=== PATIENT | male | born 1960 | race Caucasian/White ===

== ENCOUNTER 2016-08-18 09:59 | Emergency (ER) | payer MEDICARE, OTHER ==
[2016-08-18 11:32] VITALS: BP 124/84
--- NOTE | 2016-08-18 11:35 | UC ---
Respiratory Complaint HPI - HPI Summary HPI Summary: He has had cough for about 24 hours and diarrhea for about 3 days. no pain currently, no fever or blood in stool. no vomiting. Today acu check following breakfast with syrup was 300+. it has been in the 130 range. He has been compliant with lantus. metformin was stopped a few weeks ago. - History of Current Complaint Chief Complaint: UCRespiratory Stated Complaint: COUGH,THROAT COMPLAINT Time Seen by Provider: 08/18/16 11:16 Hx Obtained From: Patient, Family/Pelt Grader Onset/Duration: Gradual Onset Timing: Constant Severity Initially: Mild Severity Currently: Mild Character: Cough: Nonproductive Associated Signs And Symptoms: Positive: URI. Negative: Fever, Chills, Pleuritic Chest Pain, Wheezing, Hemoptysis, Dizziness, Calf Pain, Calf Swelling , Edema, Nasal Congestion, Hoarseness, Sinus Discomfort - Risk Factors Pulmonary Embolism Risk Factors: Negative Cardiac Risk Factors: Hypertension, Diabetes, CAD - Allergies/Home Medications Allergies/Adverse Reactions: Allergies Allergy/AdvReac Type Severity Reaction Status Date / Time No Known Allergies Allergy Verified 08/18/16 11:02 PMH/Surg Hx/FS Hx/Imm Hx Endocrine History Of: Reports: Diabetes Cardiovascular History Of: Reports: Hypertension Denies: Cardiac Disorders Respiratory History Of: Reports: Asthma - Surgical History Surgical History: Yes Surgery Procedure, Year, and Place: 2010 shoulder surgery-right - Family History Known Family History: Positive: Hypertension, Diabetes - Social History Alcohol Use: Occasionally Substance Use Type: None Smoking Status (MU): Former Smoker Type: Cigarettes Length of Time of Smoking/Using Tobacco: off/on since age 15 Have You Smoked in the Last Year: Yes Review of Systems All Other Systems Reviewed And Are Negative: Yes Physical Exam Triage Information Reviewed: Yes Appearance: Well-Appearing, No Pain Distress, Well-Nourished Vital Signs: Initial Vital Signs Temp 97.3 F 08/18/16 10:54 Pulse 81 08/18/16 10:54 Resp 18 08/18/16 10:54 BP 124/84 08/18/16 10:54 Eye Exam: Normal Eyes: Positive: Conjunctiva Clear. Negative: Conjunctiva Inflamed ENT: Positive: Normal ENT inspection, Hearing grossly normal, Pharynx normal, TMs normal. Negative: Pharyngeal erythema, Nasal congestion, Nasal drainage, TM bulging, TM dull, TM red, Tonsillar swelling, Tonsillar exudate, Trismus, Muffled/hoarse voice Neck exam: Normal Neck: Positive: Supple, Nontender, No Lymphadenopathy. Negative: Nuchal Rigidity, Tenderness @, Enlarged Nodes @ Respiratory Exam: Normal Respiratory: Positive: Chest non-tender, Lungs clear, Normal breath sounds, No respiratory distress, No accessory muscle use. Negative: Respiratory distress, Decreased breath sounds, Accessory muscle use, Crackles, Rhonchi, Stridor, Wheezing Cardiovascular: Positive: RRR, No Murmur, Pulses Normal, Brisk Capillary Refill Abdomen Description: Positive: Nontender, No Organomegaly, Soft Musculoskeletal Exam: Normal Musculoskeletal: Positive: Strength Intact, ROM Intact, No Edema Neurological: Positive: Alert, Muscle Tone Normal. Negative: Fatigued, Lethargic, Unresponsive Psychological Exam: Normal Skin Exam: Normal Respiratory Course/Dx - Course Course Of Treatment: viral illness. no signs of worsisome findings. hydration and f/u with pcp if BG remains high. - Differential Dx/Diagnosis Differential Diagnosis/HQI/PQRI: Airway Obstruction, Foreign Body, Aspiration, Asthma, Bronchitis, CHF, Pulmonary Edema, Exacerbation Of COPD, Influenza, Laryngitis, Lower Resp Infection, MRSA, VRE, Pneumothorax, Pulmonary Embolism Provider Diagnoses: diarrhea. cough and congestion. hyperglycemia. Discharge - Discharge Plan Condition: Fair Disposition: HOME Patient Education Materials: Chronic Diarrhea (ED), Diabetic Hyperglycemia (ED) Referrals: Sugey Rosales MD [Primary Care Provider] - If Needed
== END 2016-08-18 11:45 | disposition home or self-care (01) ==
LOC: UCCORT 09:59
DX: R19.7 Diarrhea, unspecified (principal); R05 Cough; E11.65 Type 2 diabetes mellitus with hyperglycemia; Z87.891 Personal history of nicotine dependence
CPT/HCPCS: 99212; G0463

== ENCOUNTER 2016-08-20 17:40 | Emergency (ER) | payer MEDICARE, OTHER ==
[2016-08-20] MEDS ORDERED: Albuterol 2.5 MG/3 ML NEB.SOL* (0.083%) INH ONE (19:31)
[2016-08-20] MEDS ORDERED: Acetaminophen TAB* 325 MG PO ONE (19:31)
[2016-08-20 19:32] VITALS: BP 126/79
--- NOTE | 2016-08-20 19:34 | UC ---
UC General HPI - HPI Summary HPI Summary: patient has had Cough, fever, shortness of breath, body aches. - History of Current Complaint Chief Complaint: UCGeneralIllness Stated Complaint: FLU SYMPTOMS Time Seen by Provider: 08/20/16 19:00 Hx Obtained From: Patient Onset/Duration: Sudden Onset, Lasting Days Timing: Constant Onset Severity: Moderate Current Severity: Severe Pain Intensity: 9 Associated Signs & Symptoms: Positive: Cough, Fever, Headache, SOB, Wheezing - Allergy/Home Medications Allergies/Adverse Reactions: Allergies Allergy/AdvReac Type Severity Reaction Status Date / Time No Known Allergies Allergy Verified 08/20/16 19:09 Home Medications: Home Medications Amlodipine Besylate [Norvasc-] 5 mg PO DAILY 08/20/16 [History Confirmed ] Bupropion XL (NF) [Wellbutrin XL (NF)] 300 mg PO DAILY 08/20/16 [History Confirmed 08/20/16] PMH/Surg Hx/FS Hx/Imm Hx Previously Healthy: Yes Endocrine History Of: Reports: Diabetes Cardiovascular History Of: Reports: Hypertension Denies: Cardiac Disorders Respiratory History Of: Reports: Asthma - Surgical History Surgical History: Yes Surgery Procedure, Year, and Place: 2011 shoulder surgery-right. LEFT SHOULDER SX--2016. LEFT TOE PARTIAL NAIL AVULSION. RIGHT TOE PARTIAL NAIL AVULSION - Family History Known Family History: Positive: Hypertension, Diabetes - Social History Alcohol Use: Occasionally Substance Use Type: None Smoking Status (MU): Former Smoker Type: Cigarettes Length of Time of Smoking/Using Tobacco: off/on since age 15 Have You Smoked in the Last Year: Yes When Did the Patient Quit Smoking/Using Tobacco: 09/2014 Review of Systems Constitutional: Fever, Chills, Fatigue Skin: Negative Eyes: Negative ENT: Sore Throat, Ear Ache, Nasal Discharge Respiratory: Shortness Of Breath, Cough Cardiovascular: Negative Gastrointestinal: Negative Genitourinary: Negative Motor: Negative Neurovascular: Negative Musculoskeletal: Arthralgia, Myalgia Neurological: Headache Psychological: Negative All Other Systems Reviewed And Are Negative: Yes Physical Exam Triage Information Reviewed: Yes Appearance: Well-Nourished, Ill-Appearing, Pain Distress Vital Signs: Initial Vital Signs Temp 100.1 F 08/20/16 18:58 Pulse 103 08/20/16 18:58 Resp 20 08/20/16 18:58 BP 126/79 08/20/16 18:58 Pulse Ox 95 08/20/16 18:58 Vital Signs Reviewed: Yes Eye Exam: Normal Eyes: Positive: Conjunctiva Clear ENT: Positive: Pharyngeal erythema, Nasal congestion, Nasal drainage, TMs normal , Tonsillar swelling Dental Exam: Normal Neck exam: Normal Neck: Positive: Supple, Nontender, No Lymphadenopathy Respiratory Exam: Normal Respiratory: Positive: Decreased breath sounds - mild, Rhonchi, Wheezing, Inspiration Cardiovascular Exam: Normal Cardiovascular: Positive: No Murmur, Pulses Normal, Tachycardia Abdominal Exam: Normal Abdomen Description: Positive: Nontender, No Organomegaly, Soft Bowel Sounds: Positive: Present Musculoskeletal Exam: Normal Musculoskeletal: Positive: Strength Intact, ROM Intact, No Edema Neurological Exam: Normal Neurological: Positive: Alert, Muscle Tone Normal Psychological Exam: Normal Skin Exam: Normal Course/Dx - Course Course Of Treatment: hx obtained, exam performed, medication asdministered for [place] and SOB. positive flu A, chest xray negative - Differential Dx - Multi-Symptom Provider Diagnoses: influenza A. wheezing. Fever Discharge - Discharge Plan Condition: Stable Disposition: HOME Prescriptions: Albuterol 2.5MG/3ML (0.083%)* [Ventolin 2.5 MG/3 ML NEB.BERTRAND*] 2.5 mg INH Q4H PRN #1 box PRN Reason: Sob/Wheezing predniSONE TAB* [Deltasone TAB*] 40 mg PO DAILY #10 tab Patient Education Materials: Influenza (ED) Referrals: Sugey Rosales MD [Primary Care Provider] - Additional Instructions: Get plenty of rest, Increase your fluid intake. Continue with the Robitussin for cough, use the albuterol twice a day, upt ot every 4 hours for shortness of breath. Start the prednisone tomorrow morning to help with the wheezing. Continue with tylenol every 4-6 hours 650 mg. If you develop any worsening symtpoms follow up.
--- NOTE | 2016-08-20 20:27 | RAD ---
INDICATION: Shortness of breath and wheezing. COMPARISON: There are no prior studies available for comparison. TECHNIQUE: Dual-energy PA and lateral views of the chest were obtained. FINDINGS: The heart is within normal limits in size. Mediastinal and hilar contours appear within normal limits. The lungs are clear. No pleural effusion is present. There is prominent widening of both acromioclavicular joints possibly secondary to resection of the distal clavicles. IMPRESSION: NO EVIDENCE FOR ACTIVE CARDIOPULMONARY DISEASE.
== END 2016-08-20 20:52 | disposition home or self-care (01) ==
LOC: UCCORT 17:40
DX: J10.1 Influenza due to other identified influenza virus with other respiratory manifestations (principal); R06.2 Wheezing; R50.9 Fever, unspecified; I10 Essential (primary) hypertension; Z87.891 Personal history of nicotine dependence
CPT/HCPCS: 71020; 87502; 99212; A9270-GY; G0463

== ENCOUNTER 2017-09-03 17:06 | Emergency (ER) | payer MEDICARE, OTHER ==
--- NOTE | 2017-09-03 17:59 | UC ---
General HPI - HPI Summary HPI Summary: Pt is c/o a crackling-popping noise in his L ear that now feels like ear pressure. Now he has pain to front of ear that radiates toward his neck and sometimes gives him a headache. He wears a hearing aid in R ear. Denies fever, uri, sore throat and states I have no teeth. He admits to his jaw popping which is not new. Pt called Dr kat but not able to be seen until 09/13/17 and states i can't wait that long. he is on nasal spray and allergy medication. no relief with tylenol. - History of Current Complaint Stated Complaint: RIGHT EAR/JAW PAIN,[place] Time Seen by Provider: 09/03/17 17:53 Hx Obtained From: Patient Onset/Duration: Gradual Onset Timing: Constant Aggravating: nothing Alleviating: nothing Associated Signs & Symptoms: Positive: Headache. Negative: Fever, Weakness - Allergy/Home Medications Allergies/Adverse Reactions: Allergies Allergy/AdvReac Type Severity Reaction Status Date / Time No Known Allergies Allergy Verified 09/03/17 18:15 PMH/Surg Hx/FS Hx/Imm Hx - Additional Past Medical History Additional PMH: arthritis Endocrine History: Diabetes, Hyperthyroidism, Dyslipidemia Respiratory History: Asthma - Surgical History Surgical History: Yes Surgery Procedure, Year, and Place: 2009 shoulder surgery-right - Family History Known Family History: Positive: Hypertension, Diabetes - Social History Alcohol Use: Occasionally Substance Use Type: None Smoking Status (MU): Heavy Every Day Tobacco Smoker Type: Cigarettes Length of Time of Smoking/Using Tobacco: off/on since age 15 Have You Smoked in the Last Year: Yes When Did the Patient Quit Smoking/Using Tobacco: 09/2014 Review of Systems Constitutional: Negative Skin: Negative Eyes: Negative ENT: Ear Ache Respiratory: Negative Cardiovascular: Negative Gastrointestinal: Negative Genitourinary: Negative Motor: Negative Neurovascular: Negative Musculoskeletal: Negative Neurological: Headache Psychological: Negative Is Patient Immunocompromised?: No All Other Systems Reviewed And Are Negative: Yes Physical Exam Triage Information Reviewed: Yes Appearance: Well-Appearing Eyes: Positive: Conjunctiva Clear ENT: Positive: Pharynx normal, TMs normal, Other - Canals are clear. No auricular adenopathy. No mastoid tenderness. TMJ's pop with active ROM. No carotid bruits.. Negative: Nasal congestion, Nasal drainage Neck: Positive: Supple, Nontender, No Lymphadenopathy. Negative: Nuchal Rigidity Respiratory: Positive: Lungs clear, Normal breath sounds Cardiovascular: Positive: RRR, No Murmur, Pulses Normal, Other: - Strong equal radial pulses. Abdomen Description: Positive: Nontender, No Organomegaly, Soft Bowel Sounds: Positive: Present Musculoskeletal: Positive: ROM Intact Neurological: Positive: Alert, Other: - CN 2-12 grossly intact. Normal gait. Temporal areas without cords or tenderness. Psychological: Positive: Age Appropriate Behavior Skin Exam: Normal Skin: Negative: rashes Course/Dx - Course Course Of Treatment: non toxic. exam supports TMJ syndrom. rest of exam is unremarkable. nothing to suggest temporal arteritis, intracranial bleed or dissection. possible eustachian tube dysfunction but the otalgia seems out of proportion thus will refer to ent for f/u with Dr Frias tomorrow. pt advised if he feels any worse that he should go directly to the er to which he agrees. - Differential Dx - Multi-Symptom Provider Diagnoses: Otalgia-left. TMJ syndrom and possible eustachian tube dysfunction Discharge - Discharge Plan Condition: Stable Disposition: HOME Prescriptions: Naproxen TAB* [Naprosyn 375 mg TAB*] 375 mg PO BID 3 Days #6 tab Referrals: Sugey Rosales MD [Primary Care Provider] - If Needed Josef Frias MD [Medical Doctor] - 1 Day
[2017-09-03 18:18] VITALS: BP 120/85
== END 2017-09-03 18:55 | disposition home or self-care (01) ==
LOC: UCCORT 17:06
DX: H92.01 Otalgia, right ear (principal); M26.609 Unspecified temporomandibular joint disorder, unspecified side; E11.9 Type 2 diabetes mellitus without complications; Z87.891 Personal history of nicotine dependence
CPT/HCPCS: 99212; G0463

== ENCOUNTER 2018-09-30 16:43 | Emergency (ER) | payer MEDICARE, MEDICAID ==
--- NOTE | 2018-09-30 17:01 | UC ---
Respiratory Complaint HPI - HPI Summary HPI Summary: Pt had a URI about 3 weeks ago and he got better but still has some post-nasal drainage and head congestion. - History of Current Complaint Stated Complaint: COUGH,CONGESTION Time Seen by Provider: 09/30/18 17:00 Hx Obtained From: Patient Onset/Duration: Gradual Onset Timing: Constant Severity Initially: Moderate Severity Currently: Mild Character: Cough: Nonproductive Aggravating Factors: Nothing Alleviating Factors: Nothing Associated Signs And Symptoms: Positive: URI, Nasal Congestion - Risk Factors Pulmonary Embolism Risk Factors: Negative Cardiac Risk Factors: Negative Pseudomonas Risk Factors: Negative Tuberculosis Risk Factors: Negative - Allergies/Home Medications Allergies/Adverse Reactions: Allergies Allergy/AdvReac Type Severity Reaction Status Date / Time enviromental Allergy Unknown Unknown Uncoded 09/30/18 17:02 Reaction Details PMH/Surg Hx/FS Hx/Imm Hx Previously Healthy: Yes Endocrine History: Diabetes - Surgical History Surgical History: Yes Surgery Procedure, Year, and Place: 2009 shoulder surgery-right - Family History Known Family History: Positive: Hypertension, Diabetes - Social History Alcohol Use: Occasionally Substance Use Type: None Smoking Status (MU): Heavy Every Day Tobacco Smoker Type: Cigarettes Length of Time of Smoking/Using Tobacco: off/on since age 15 Have You Smoked in the Last Year: Yes When Did the Patient Quit Smoking/Using Tobacco: 09/2014 Review of Systems All Other Systems Reviewed And Are Negative: Yes Constitutional: Positive: Negative ENT: Positive: Nasal Discharge Is Patient Immunocompromised?: No Physical Exam Triage Information Reviewed: Yes Appearance: Well-Appearing, No Pain Distress, Well-Nourished Vital Signs Reviewed: Yes Eye Exam: Normal ENT Exam: Normal ENT: Positive: Pharynx normal, Nasal congestion, TMs normal, Uvula midline. Negative: Tonsillar swelling, Tonsillar exudate, Trismus, Muffled voice, Hoarse voice Neck: Positive: Supple, Nontender, No Lymphadenopathy Respiratory: Positive: Lungs clear, Normal breath sounds, No respiratory distress, No accessory muscle use Cardiovascular: Positive: RRR, No Murmur, Pulses Normal, Brisk Capillary Refill Musculoskeletal Exam: Normal Neurological Exam: Normal Psychological Exam: Normal Skin Exam: Normal Respiratory Course/Dx - Course Course Of Treatment: Comfortable here, pt stated he was better but he just wanted to be checked - Differential Dx/Diagnosis Provider Diagnosis: URI (upper respiratory infection) Discharge - Sign-Out/Discharge Documenting (check all that apply): Patient Departure All imaging exams completed and their final reports reviewed: No Studies - Discharge Plan Condition: Good Disposition: HOME Patient Education Materials: Upper Respiratory Infection (DC) Referrals: Tam Rowland MD [Primary Care Provider] - Additional Instructions: Follow up with your doctor if worsening symptoms over the next week. - Billing Disposition and Condition Condition: GOOD Disposition: Home
--- OUTSIDE RECORDS SUMMARY | 2018-09-30 17:01 | XMS REPORT | Continuity of Care Document ---
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 Active Onset: 07/17/2014 Benign essential hypertension Soren Crawford FNP Active Onset: 07/17/2014 Type 2 diabetes mellitus Soren Crawford FNP Active Onset: 01/03/2015 Sleep apnea Susan Sutton M.D. Active Onset: 06/08/2015 Obesity Tye Del Castillo MD Active Onset: 06/08/2015 Chronic obstructive lung disease Tye Del Castillo MD Active Onset: 06/08/2015 Allergic rhinitis Tye Del Castillo MD Active Onset: 06/08/2015 Depressive disorder Tye Del Castillo MD Active Onset: 06/08/2015 Gastroesophageal reflux disease Tye Del Castillo MD Active Onset: 07/01/2015 Irritable bowel syndrome Tye Del Castillo MD Active Note: colo to TI Bx 2015 Onset: 12/31/2015 Shoulder joint pain Navneet Latham M.D. Active Onset: 01/17/2016 Full thickness rotator cuff tear Navneet Latham M.D. Active Onset: 01/28/2016 Hyperlipidemia Sugey Rosales M.D. Active Onset: 09/04/2016 Knee pain Navneet Latham M.D. Active Onset: 09/13/2016 Radial styloid tenosynovitis Navneet Latham M.D. Active Onset: 12/28/2016 Joint ankylosis of the shoulder Riya Manriquez PA Active region Onset: 01/01/2017 Mild intermittent asthma Kimberly Willson MD Active Onset: 11/23/2017 Psychogenic impotence Patrick Sosa M.D. Active Onset: 06/08/2015 Eosinophilic esophagitis Tye Del Castillo MD Resolved Resolved: 01/28/2016 Onset: 01/20/2016 Acute pharyngitis Kimberly Willson MD Resolved Resolved: 01/28/2016 Family History Date Family Member(s) Observation Comments General Cancer General Heart Disease General Stroke General Diabetes Father Diabetes Father Hypertension Father Gout Mother Diabetes Mother due to [place] () Mother Hypertension Mother CAD 39 Mother CHF Children 2 First Son learning disability Second Son neuromuscular condition Siblings 3 First Sister due to Heart Attack () Second Sister Heart Disease Second Sister Diabetes Mellitus Type 2 Second Sister Stroke Social History Type Date Description Comments Sex Unknown Marital Status Lives With Lives With Daughter step daughter Diet Patient follows no dietary restrictions Occupation Disabled Work Status Unemployed Tobacco Use Start: Unknown End: Quit Greater than 1 year Unknown ETOH Use Rarely consumes alcohol 3 dr/mo Tobacco Use Start: Unknown End: Patient is a former 1ppd x 32 yrs, quit Unknown smoker at age 54 Recreational Drug Use Denies Drug Use Tobacco Use Start: Unknown Quit 10/05/14 Smoking Status Reviewed: 09/19/18 Quit 10/05/14 Allergies, Adverse Reactions, Alerts Date Description Reaction Status Severity Comments 10/05/2014 NKDA Active 12/07/2015 Environmental Active Medications Medication Date Status Form Strength Qnty SIG Indications Ordering Provider Saline Nasal 09/20/19 Active Solution 0.65% 1unit 2 sprays J06.9 Janett, [place] 19 s intranasal MD Tam every 2 hours congestion or nasal dryness SM Aspirin 08/19/[address] 81mg 90tab take one Janett Adult Low 19 s tablet by MD Tam Strength mouth every day Allergy Shot 02/29/20 Active 1 Sheila, 18 injection Mahmoud, every 2 M.D. weeks SM Alcohol 11/07/19 Active Pads 70% 100un Use For Connie, Prep 18 its Testing Sugey, Blood M.D. Sugar And Give Insulin Blood Glucose 08/03/19 Active Kit W/Device 1unit check E11.9 Connie, Monitoring 18 s blood Sugey, System sugars M.D. fasting in in the morning dx. e11.9 Blood Glucose 08/03/19 Active Strips 100un test E11.9 Carson, Test 18 its sugars in [place], in the PNP-BC, morning [facility], e11.9 Ibclc Ranexa 05/30/20 Active Tablets ER 500mg 180ta Take One R07.9 [place] 17 12HR bs Tablet By Stefano M.D., Twice A FACC Day Ventolin HFA 05/03/20 Active Aerosol 108(90Bas 18uni inhale one Janett 17 e) ts to two MD Tam mcg/Act puffs by mouth every 4 to 6 hours as needed Basaglar 05/03/20 Active Solution 100Unit/M 15uni Inject 48 E11.9 Janett Kwikpen 17 Pen-Inject L ts Units MD Tam Daily, Titrate as Directed Unifine 09/26/19 Active Misc 31G X 5 100un For Janett Pentips 17 mm its Insulin MD Tam Amlodipine 03/22/20 Active Tablets 5mg 90tab take one Ricardo Besylate 16 s tablet by MD Curtis mouth every day Pen Himrod 11/29/19 Active Misc 31G X 5 100un use to E11.9 Connie, 3/16" 16 mm its inject Sugey, insulin Emma Lancets Super 11/29/19 Active Misc Thin 28G 100un use as Sandrita Sutton 28G 16 its needed to Susan martin M.D. blood sugar Alcohol Pads 11/29/19 Active Pads 70% 100un use to Connie, 16 its test bs Sugey, and larry Carter insulin Atorvastatin 04/07/20 Active Tablets 40mg 90tab take one E78.5 Demetris, Calcium 15 s tablet by MD Kimberly mouth every day Acetaminophen 09/11/19 Active Tablets 500mg 100ta 2 tabs Sutton, Extra Strength 15 bs every 4 Susan [place] estrada M.D. needed for pain or fever MDD 8 Mens Active Tablets 1 po daily Unknown Multivitamin 00 Plus Fluoxetine HCL Active Capsules 20mg 90cap take one Janett, 00 s capsule by MD Tam mouth every day Nasal Relief Active Solution 0.05% Nasal wash Unknown 00 once daily Fluticasone Active Suspension 50mcg/Act 16gm spray 2 Janett, Propionate 00 sprays in MD Tam each nostril daily Lisinopril Active Tablets 20mg 90tab take one Demetris, 00 s tablet by MD Kimberly mouth every day Bupropion HCL Active Tablets ER 300mg 90tab Take One Connie, ER (XL) 00 24HR s Tablet By Pamela Mayes.Tejas Every Day Loratadine Active Tablets 10mg 30tab take one Janett, 00 s tablet by MD Tam mouth every day Flovent Diskus Active Aerosol 100mcg/Bl 60uni Inhale One Carson, 00 ist ts puff By Pamela Hart PNP-BC, Twice A [facility], Day Ibclc Coricidin HBP Active Tablets Unknown Cold & Flu 00 Guaifenesin-DM 07/18/19 Hx Syrup 100-10mg/ ml 1 tbsp by Jevon Rowland, 19 - 5ML mouth MD Tam 07/30/19 twice a 19 day congestion Saline Nasal 07/18/19 Hx Solution 0.65% 1unit 2 sprays Jevon Rowland [place] 19 - s intranasal MD Tam 09/20/19 every 2 19 hours congestion or nasal dryness Chloraseptic 07/18/19 Hx Lozenges 15-10mg 60uni 1 lozenge Luis Alfredo Arreaga Sore 19 - ts by mouth MD Tam Throat 07/30/19 every 2 19 hours as needed Sildenafil 11/24/19 Hx Tablets 20mg 14tab take up to F52.21 Sheila, Citrate 18 - s 5 pills as Mahmoud, 07/30/19 need once M.D. 19 a day 2 hours before intercours e Aspirin Ec Low 05/29/[address] 81mg 90tab take one Dale Willson 17 - s tablet by MD Kimberly 08/19/19 mouth 19 every day Azithromycin 03/20/20 Hx Tablets 250mg 6tabs 1 tab take J20.9 Connie, 17 - 2 tabs x Sugey, 05/02/20 daily days M.D. 17 then 1 for 4 days Lantus 02/01/20 Hx Solution 100Unit/M 59u sq at E11.9 Demetris 17 - L bedtime MD Kimberly 05/03/20 17 Aspir-Low 01/10/[address] 81mg 90tab Take One Connie 17 - s Tablet By Sugey 05/29/20 Mouth M.D. 17 Every Day Oxycodone HCL 12/29/19 Hx Tablets 5mg 40tab 1-2 every Z01.818 Yeison, 17 - s 4-6 hour Navneet, 08/03/19 as needed M.D. 18 pain Lantus 11/20/19 Hx Solution 100Unit/M 30ml inject 62 Pat Willson 17 - Pen-Inject L units once MD Kimberly 02/01/20 daily,chec 17 k blood sugar every morning and if over 120,increa se insulin by 1 unit per day Basaglar 09/27/19 Hx Solution 100Unit/M 45ml inject 60u E11.9 Francisco Rosales 17 - Pen-Inject L SQ in Am Sugey, 12/29/19 and M.D. 17 titrate as indicated Ventolin 08/21/19 Hx Nebulizer 0.083% 1unit Q4H prn Unknown 17 - s For 05/03/20 Sob/Wheezi 17 ng Deltasone 08/21/19 Hx Tablets 20mg 10tab Every Day Unknown 17 - s 09/05/19 17 Oxycodone HCL 02/02/20 Hx Tablets 10mg 40tab 1 by mouth M75.122 Yeison, 16 - s every 4-6 Navneet, 03/10/20 hour as M.D. 16 needed postop pain Cephalexin 01/20/20 Hx Capsules 500mg 40cap 1 tab by Demetris 16 - s mouth 4 MD Kimberly 01/29/20 times a 16 day Clopidogrel 12/07/19 Hx Tablets 75mg 30tab once daily R07.9 Ricardo, Bisulfate 16 - s MD Curtis 12/28/19 16 Lantus 11/29/19 Hx Solution 100Unit/M 150ml A/D to E11.9 Pat Rosales 16 - Pen-Inject L scale Sugey, 09/27/19 M.D. 17 Freestyle Lite 11/10/19 Hx Device 1unit use to E11.9 Lesley, Blood Glucose 16 - s check Susan Monitoring 08/03/19 blood , M.DKane System 18 sugar Dx E11.9 Freestyle Lite 11/10/19 Hx Strips 100un test blood E11.9 Clune, Test 16 - its sugar Jenniferl 08/03/19 every in eigh, [facility] 18 the morning dx. e11.9 Barbara Contour 11/08/19 Hx Strips 100un check E11.9 Sutton, Blood Glucose 16 - its blood Susan Test Strips 11/10/19 sugar 1-2 , M.D. 16 times a day as needed dx: e11.9 Glimepiride 08/10/19 Hx Tablets 4mg 30tab 1 by mouth Lesley, 16 - s every day Susan 11/29/19 , M.DKane 16 Januvia 08/10/19 Hx Tablets 100mg 30tab 1 by mouth Lesley, 16 - s every day Susan 11/29/19 , M.DKane 16 Omeprazole 07/20/[address] 10mg 90cap 1 by mouth K21.9 Connie 16 - s every day Sugey, 09/05/19 M.DKane 17 Peg-3350/Elect 06/08/20 Hx Solution 236gm 1unit by mouth 1 R10.9 fay Del Castillo 15 - Rec s cup every Tye, 07/20/19 10'; drink 16 1/2 of the amount the evening before the procedure and the rest the morning of the procedure Tums 06/08/20 Hx Chewtabs 500mg 360un by mouth K21.9 Vatra, 15 - its every 2 h Tye, Unknown as needed heartjonny Omeprazole 06/08/[address] 20mg 90cap 1 by mouth K21.9 Abundio, 15 - s every day Tye, 07/20/19 MD Altman Major-Prep 05/08/20 Hx Ointment 0.25-14-7 6unit 3 Times Unknown Hemorrhoidal 15 - 4.9% s Daily 06/08/20 15 Metformin HCL 04/07/20 Hx Tablets ER 750mg 60tab Take One E11.9 Connie, ER 15 - 24HR s Tablet By Sugey, 08/02/19 Mouth M.DKane 17 Twice A Day Proair HFA 01/05/20 Hx Aerosol 108(90Bas 17uni inhale 2 I10 Connie 15 - e) ts puffs by Sugey, 11/01/19 mcg/Act mouth M.D. 17 every 4 hours as needed Simvastatin 11/24/19 Hx Tablets 20mg 30tab 1 by mouth E78.5 Lesley 15 - s every day Susan 04/07/20 , Emma 15 Viagra 11/24/19 Hx Tablets 100mg 3tabs one as 607.84 Juan Sutton - needed Susan 06/08/20 Emma 15 Aspirin 10/15/[address] 81mg 30tab 1 by mouth Connie, 15 - s every day Sugey 01/10/20 Emma 17 Nabumetone 10/06/19 Hx Tablets 750mg 60tab Take One Connie, 15 - s Tablet By Sugey 11/01/19 Mouth M.DKane 18 Twice A Day With Food Chantix 09/22/19 Hx Tablets 1mg 60tab 1 tab by Vivian Sutton 15 - s mouth Susan Webb Wojciech 04/06/20 twice a , 15 day Meloxicam 07/31/19 Hx Tablets 15mg 90tab 1 by mouth Lesley 15 - s every day Susan 04/06/20 , 15 Lisinopril Hx Tablets 20mg 30tab 1 by mouth I10 Connie, 00 - s every day Sugey 09/05/19 Emma 17 Glipizide Hx Tablets 5mg 30tab 1 by mouth E11.9 Lesley 00 - s every day Susan 08/10/19 Emma 16 Meloxicam Hx Tablets 15mg Unknown - 10/06/19 15 Aspirin Adult Hx Tablets DR 81mg 30tab 1 by mouth Lesley Low Strength 00 - s every day Susan 10/15/19 MD 15 Ventolin HFA Hx Aerosol 108mcg/Ac 8gm 2 puffs Lesley 00 - t every 4 Susan 01/05/20 hours as , Emma 15 needed Fluticasone Hx Suspension 50mcg/Act 16gm 2 sprays Lesley, Propionate 00 - intranasal Susan 07/20/19 every day Emma 16 Bupropion HCL Hx Tablets 75mg 1 PO bid [place] 00 - , 01/17/20 MD Tyshawn 16 Flovent Diskus Hx Aerosol 100mcg/Bl daily Unknown 00 - ist 09/05/19 17 Nasal Allergy Hx Aerosol 55mcg/Act qd Unknown 24 Hour - 09/05/19 17 Aerospan Hx Aerosol 80mcg/Act every 12 Unknown 00 - hours Unknown Doxycycline Hx Tablets 100mg [place] Hyclate 00 - Neftaly, 11/29/19 16 Lantus Hx Solution 100Unit/M per Unknown 00 - L sliding 01/20/20 scale 16 Tylenol Extra Hx Tablets 500mg as needed Unknown Strength - 01/20/20 16 Bupropion HCL Hx Tablets 50mg Unknown - 01/28/20 16 Bupropion HCL Hx Tablets 300mg 1 tab po [place] 00 - once a day , 09/05/19 MD Tyshawn 17 Allergy Hx Q. weekly Unknown Injections - 12/29/19 17 Zofran Hx Tablets 4mg 1tab by Unknown 00 - mouth q4-6 05/02/20 hours as 16 needed for nausea Albuterol Hx Nebulizer (2.5mg/3M Inhale 1 Unknown Sulfate 00 - L) 0.083% Vial Via 12/29/19 Nebulizer 17 Every 4 Hours as Needed For Shortness Of B Fluoxetine HCL Hx Capsules 10mg 2 by mouth Unknown 00 - every day Unknown Bupropion HCL Hx Tablets ER 100mg take one Unknown ER (SR) 00 - 12HR pill by 11/28/19 mouth in 17 in the morning Wellbutrin XL Hx Tablets ER 300mg 1 by mouth Unknown 00 - 24HR every day 02/01/20 18 Immunizations CPT Code Status Date Vaccine Lot # [id number] Given 04/18/2018 Influenza Virus Vaccine, Quadrivalent, 36 Mos+, [id number] 52066 Given 03/20/2017 Influenza Virus Vaccine Quadrivalent Iiv4 Split [id number] Preser Free Id [id number] Given 03/27/2016 Influenza Vaccine (Fluzone) Age 3 And Older [id number] Given 04/06/2015 Influenza Vaccine (Fluzone) Age 3 And Older [id number] 60051 Given 04/06/2015 Pneumococcal Conjugate Vaccine 13 Valent For [id number] Intramuscular Use 56047 Given 07/17/2014 flu vaccination Vital Signs Date Vital Result Comment 09/19/2018 11:21am BP Systolic 118 mmHg BP Diastolic 82 mmHg Body Temperature 97.0 F Heart Rate 70 /min Respiratory Rate 18 /min Height 65 inches 5'5" Weight 188.00 lb BMI (Body Mass Index) 31.3 kg/m2 BSA (Body Surface Area) 1.93 m2 [place] body weight in kilograms 62 kg O2 % BldC Oximetry 95 % Ra 07/30/2018 10:30am BP Systolic 128 mmHg BP Diastolic 82 mmHg Heart Rate 80 /min Respiratory Rate 18 /min Height 65 inches 5'5" Weight 192.38 lb BMI (Body Mass Index) 32.0 kg/m2 BSA (Body Surface Area) 1.95 m2 [place] body weight in kilograms 62 kg O2 % BldC Oximetry 96 % Ra 07/18/2018 10:26am BP Systolic 120 mmHg BP Diastolic 78 mmHg Body Temperature 97.2 F Heart Rate 72 /min Respiratory Rate 18 /min Height 65 inches 5'5" Weight 193.00 lb BMI (Body Mass Index) 32.1 kg/m2 BSA (Body Surface Area) 1.95 m2 [place] body weight in kilograms 62 kg O2 % BldC Oximetry 97 % Ra 05/16/2018 1:48pm BP Systolic 110 mmHg BP Diastolic 70 mmHg Body Temperature 97.0 F Heart Rate 77 /min Respiratory Rate 20 /min Height 65 inches 5'5" Weight 192.00 lb BMI (Body Mass Index) 31.9 kg/m2 BSA (Body Surface Area) 1.94 m2 [place] body weight in kilograms 62 kg O2 % BldC Oximetry 95 % 04/23/2018 2:11pm BP Systolic Sitting Left Arm 120 mmHg BP Diastolic Sitting Left Arm 70 mmHg Heart Rate 79 /min Respiratory Rate 18 /min Height 65 inches 5'5" Weight 190.00 lb BMI (Body Mass Index) 31.6 kg/m2 BSA (Body Surface Area) 1.94 m2 [place] body weight in kilograms 62 kg O2 % BldC Oximetry 96 % 04/18/2018 9:33am BP Systolic Sitting Left Arm 120 mmHg BP Diastolic Sitting Left Arm 80 mmHg Body Temperature 96.8 F Heart Rate 80 /min Weight 189.50 lb O2 Saturation Level with Exercise 97 % 02/28/2018 12:44pm BP Systolic 120 mmHg BP Diastolic 80 mmHg Body Temperature 98.6 F Heart Rate 74 /min Respiratory Rate 17 /min Height 65.6 inches 5'5.60" Weight 189.38 lb BMI (Body Mass Index) 30.9 kg/m2 BSA (Body Surface Area) 1.95 m2 [place] body weight in kilograms 63 kg O2 % BldC Oximetry 97 % Pain Level 0 02/27/2018 12:57pm BP Systolic 104 mmHg BP Diastolic 62 mmHg Body Temperature 97.0 F Heart Rate 84 /min Respiratory Rate 20 /min Height 65.6 inches 5'5.60" Weight 189.00 lb BMI (Body Mass Index) 30.9 kg/m2 BSA (Body Surface Area) 1.94 m2 [place] body weight in kilograms 63 kg O2 % BldC Oximetry 94 % 01/31/2018 1:12pm BP Systolic Sitting Left Arm 120 mmHg BP Diastolic Sitting Left Arm 76 mmHg Body Temperature 97.2 F Heart Rate 72 /min Height 65.6 inches 5'5.60" Weight 192.12 lb BMI (Body Mass Index) 31.4 kg/m2 BSA (Body Surface Area) 1.96 m2 [place] body weight in kilograms 63 kg 11/23/2017 10:29am BP Systolic Sitting Left Arm 118 mmHg BP Diastolic Sitting Left Arm 76 mmHg Body Temperature 97.4 F Height 65.6 inches 5'5.60" Weight 195.00 lb BMI (Body Mass Index) 31.9 kg/m2 BSA (Body Surface Area) 1.97 m2 [place] body weight in kilograms 63 kg 10/31/2017 1:20pm BP Systolic Sitting Left Arm 124 mmHg BP Diastolic Sitting Left Arm 76 mmHg Height 65.6 inches 5'5.60" Weight 195.38 lb BMI (Body Mass Index) 31.9 kg/m2 BSA (Body Surface Area) 1.97 m2 [place] body weight in kilograms 63 kg 08/03/2017 12:47pm BP Systolic 118 mmHg BP Diastolic 72 mmHg Heart Rate 82 /min Height 65.6 inches 5'5.60" Weight 200.00 lb BMI (Body Mass Index) 32.7 kg/m2 BSA (Body Surface Area) 1.99 m2 [place] body weight in kilograms 63 kg O2 % BldC Oximetry 97 % 05/30/2017 2:18pm BP Systolic Sitting Right Arm 120 mmHg BP Diastolic Sitting Right Arm 82 mmHg Heart Rate 79 /min Respiratory Rate 18 /min Height 65.6 inches 5'5.60" Weight 199.00 lb BMI (Body Mass Index) 32.5 kg/m2 BSA (Body Surface Area) 1.99 m2 [place] body weight in kilograms 63 kg 05/03/2017 1:56pm BP Systolic Sitting Left Arm 118 mmHg BP Diastolic Sitting Left Arm 78 mmHg Height 65.6 inches 5'5.60" Weight 204.38 lb BMI (Body Mass Index) 33.4 kg/m2 BSA (Body Surface Area) 2.01 m2 [place] body weight in kilograms 63 kg 04/17/2017 1:07pm BP Systolic Sitting Left Arm 110 mmHg BP Diastolic Sitting Left Arm 74 mmHg Heart Rate 84 /min Respiratory Rate 16 /min Height 65.6 inches 5'5.60" Weight 202.00 lb BMI (Body Mass Index) 33.0 kg/m2 BSA (Body Surface Area) 2.00 m2 [place] body weight in kilograms 63 kg 03/20/2017 1:37pm BP Systolic Sitting Left Arm 136 mmHg BP Diastolic Sitting Left Arm 84 mmHg Body Temperature 96.8 F Height 65.6 inches 5'5.60" Weight 203.00 lb BMI (Body Mass Index) 33.2 kg/m2 BSA (Body Surface Area) 2.00 m2 [place] body weight in kilograms 63 kg 01/31/2017 1:51pm BP Systolic Sitting Left Arm 148 mmHg BP Diastolic Sitting Left Arm 98 mmHg Height 65.6 inches 5'5.60" Weight 198.25 lb BMI (Body Mass Index) 32.4 kg/m2 BSA (Body Surface Area) 1.98 m2 [place] body weight in kilograms 63 kg 01/01/2017 1:12pm BP Systolic 102 mmHg BP Diastolic 64 mmHg Heart Rate 86 /min Height 65.5 inches 5'5.50" Weight 200.00 lb BMI (Body Mass Index) 32.8 kg/m2 BSA (Body Surface Area) 1.99 m2 [place] body weight in kilograms 63 kg 12/28/2016 1:22pm BP Systolic Sitting Right Arm 128 mmHg BP Diastolic Sitting Right Arm 81 mmHg Heart Rate 76 /min Height 65.5 inches 5'5.50" Weight 201.00 lb BMI (Body Mass Index) 32.9 kg/m2 BSA (Body Surface Area) 1.99 m2 [place] body weight in kilograms 63 kg 11/27/2016 9:45am BP Systolic Sitting Right Arm 124 mmHg BP Diastolic Sitting Right Arm 82 mmHg Heart Rate 77 /min Height 66 inches 5'6" Weight 201.00 lb BMI (Body Mass Index) 32.4 kg/m2 BSA (Body Surface Area) 2.00 m2 [place] body weight in kilograms 64 kg 10/31/2016 2:12pm BP Systolic Sitting Left Arm 142 mmHg BP Diastolic Sitting Left Arm 78 mmHg Height 65 inches 5'5" Weight 200.00 lb BMI (Body Mass Index) 33.3 kg/m2 BSA (Body Surface Area) 1.98 m2 [place] body weight in kilograms 62 kg 10/11/2016 2:38pm BP Systolic Sitting Right Arm 114 mmHg BP Diastolic Sitting Right Arm 80 mmHg Heart Rate 80 /min Respiratory Rate 18 /min Height 65 inches 5'5" Weight 199.00 lb BMI (Body Mass Index) 33.1 kg/m2 BSA (Body Surface Area) 1.97 m2 08/31/2016 1:32pm BP Systolic Sitting Left Arm 120 mmHg BP Diastolic Sitting Left Arm 72 mmHg Body Temperature 98.4 F Heart Rate 86 /min Height 65 inches 5'5" Weight 200.00 lb BMI (Body Mass Index) 33.3 kg/m2 BSA (Body Surface Area) 1.98 m2 [place] body weight in kilograms 62 kg 08/20/2016 12:00am BP Systolic 126 mmHg BP Diastolic 79 mmHg Body Temperature 100.1 F Heart Rate 103 /min Respiratory Rate 20 /min Height 65.5 inches Weight 194.00 lb BMI (Body Mass Index) 31.8 kg/m2 O2 % BldC Oximetry 95 % 08/02/2016 3:08pm BP Systolic Sitting Left Arm 128 mmHg BP Diastolic Sitting Left Arm 72 mmHg Height 65 inches 5'5" Weight 205.25 lb BMI (Body Mass Index) 34.2 kg/m2 BSA (Body Surface Area) 2.00 m2 [place] body weight in kilograms 62 kg 07/25/2016 10:49am BP Systolic Sitting Left Arm 108 mmHg BP Diastolic Sitting Left Arm 72 mmHg Heart Rate 79 /min Respiratory Rate 18 /min Height 65 inches 5'5" Weight 203.00 lb BMI (Body Mass Index) 33.8 kg/m2 BSA (Body Surface Area) 1.99 m2 [place] body weight in kilograms 62 kg O2 % BldC Oximetry 97 % 05/02/2016 1:11pm BP Systolic 130 mmHg BP Diastolic 78 mmHg Height 65 inches 5'5" Weight 199.38 lb BMI (Body Mass Index) 33.2 kg/m2 BSA (Body Surface Area) 1.98 m2 [place] body weight in kilograms 62 kg 03/22/2016 8:16am BP Systolic Sitting Right Arm 150 mmHg machine 162/108 BP Diastolic Sitting Right Arm 100 mmHg machine 162/108 Heart Rate 82 /min Respiratory Rate 16 /min Height 65.0 inches 5'5" Weight 201.00 lb BMI (Body Mass Index) 33.4 kg/m2 BSA (Body Surface Area) 1.98 m2 02/02/2016 8:30am BP Systolic 124 mmHg BP Diastolic 78 mmHg Height 65.0 inches 5'5" Weight 198.00 lb BMI (Body Mass Index) 32.9 kg/m2 BSA (Body Surface Area) 1.97 m2 [place] body weight in kilograms 62 kg 01/28/2016 10:46am BP Systolic Sitting Left Arm 142 mmHg BP Diastolic Sitting Left Arm 92 mmHg Body Temperature 97.1 F Heart Rate 80 /min Respiratory Rate 20 /min Weight 199.38 lb O2 % BldC Oximetry 97 % 01/20/2016 3:42pm BP Systolic Sitting Resting Right Arm 112 mmHg BP Diastolic Sitting Resting Right Arm 78 mmHg Body Temperature 97.3 F Heart Rate 92 /min Weight 198.00 lb O2 % BldC Oximetry 96 % 12/31/2015 9:34am BP Systolic 131 mmHg BP Diastolic 85 mmHg Heart Rate 86 /min Height 65.50 inches 5'5.50" Weight 196.00 lb BMI (Body Mass Index) 32.1 kg/m2 BSA (Body Surface Area) 1.97 m2 [place] body weight in kilograms 63 kg 12/30/2015 9:44am BP Systolic Sitting Right Arm 158 mmHg BP Diastolic Sitting Right Arm 100 mmHg Heart Rate 73 /min Height 65 inches 5'5" Weight 197.00 lb BMI (Body Mass Index) 32.8 kg/m2 BSA (Body Surface Area) 1.97 m2 [place] body weight in kilograms 62 kg 12/28/2015 2:24pm BP Systolic Sitting Left Arm 122 mmHg BP Diastolic Sitting Left Arm 74 mmHg Body Temperature 98.1 F Heart Rate 76 /min Respiratory Rate 18 /min Height 65.5 inches 5'5.50" Weight 193.00 lb BMI (Body Mass Index) 31.6 kg/m2 BSA (Body Surface Area) 1.96 m2 [place] body weight in kilograms 63 kg 12/07/2015 1:15pm BP Systolic 126 mmHg BP Diastolic 82 mmHg Heart Rate 80 /min Height 65.5 inches 5'5.50" Weight 193.00 lb BMI (Body Mass Index) 31.6 kg/m2 BSA (Body Surface Area) 1.96 m2 [place] body weight in kilograms 63 kg 11/29/2015 10:41am BP Systolic Sitting Resting Right Arm 126 mmHg BP Diastolic Sitting Resting Right Arm 78 mmHg Heart Rate 72 /min Respiratory Rate 18 /min Height 65 inches 5'5" Weight 196.00 lb BMI (Body Mass Index) 32.6 kg/m2 BSA (Body Surface Area) 1.96 m2 [place] body weight in kilograms 62 kg 11/08/2015 1:57pm BP Systolic Sitting Left Arm 124 mmHg BP Diastolic Sitting Left Arm 82 mmHg Heart Rate 68 /min Respiratory Rate 22 /min 09/15/2015 1:19pm Height 65 inches 5'5" Weight 196.00 lb BMI (Body Mass Index) 32.6 kg/m2 BSA (Body Surface Area) 1.96 m2 09/01/2015 3:04pm Height 65 inches 5'5" Weight 198.00 lb BMI (Body Mass Index) 32.9 kg/m2 BSA (Body Surface Area) 1.97 m2 08/09/2015 1:42pm BP Systolic Sitting Left Arm 124 mmHg BP Diastolic Sitting Left Arm 80 mmHg Heart Rate 72 /min Respiratory Rate 19 /min Height 65 inches 5'5" Weight 196.00 lb BMI (Body Mass Index) 32.6 kg/m2 BSA (Body Surface Area) 1.96 m2 07/20/2015 2:12pm BP Systolic 117 mmHg BP Diastolic 87 mmHg Heart Rate 95 /min Height 65 inches 5'5" Weight 194.00 lb BMI (Body Mass Index) 32.3 kg/m2 BSA (Body Surface Area) 1.95 m2 06/08/2015 1:02pm BP Systolic 145 mmHg BP Diastolic 100 mmHg Heart Rate 87 /min Height 65 inches 5'5" Weight 198.00 lb BMI (Body Mass Index) 32.9 kg/m2 BSA (Body Surface Area) 1.97 m2 05/12/2015 2:12pm BP Systolic Sitting Left Arm 128 mmHg BP Diastolic Sitting Left Arm 72 mmHg Heart Rate 68 /min Respiratory Rate 19 /min Height 65 inches 5'5" Weight 194.00 lb BMI (Body Mass Index) 32.3 kg/m2 BSA (Body Surface Area) 1.95 m2 04/15/2015 4:01pm Height 65 inches 5'5" 04/06/2015 4:28pm BP Systolic Sitting Left Arm 122 mmHg BP Diastolic Sitting Left Arm 70 mmHg Heart Rate 68 /min Respiratory Rate 19 /min Height 65 inches 5'5" Weight 189.00 lb BMI (Body Mass Index) 31.4 kg/m2 BSA (Body Surface Area) 1.93 m2 11/23/2014 4:15pm BP Systolic Sitting Left Arm 132 mmHg BP Diastolic Sitting Left Arm 74 mmHg Heart Rate 68 /min Respiratory Rate 19 /min Height 65 inches 5'5" Weight 189.00 lb BMI (Body Mass Index) 31.4 kg/m2 BSA (Body Surface Area) 1.93 m2 10/27/2014 2:25pm Height 65 inches 5'5" Weight 187.00 lb BMI (Body Mass Index) 31.1 kg/m2 BSA (Body Surface Area) 1.92 m2 10/14/2014 4:07pm BP Systolic Sitting Left Arm 128 mmHg BP Diastolic Sitting Left Arm 80 mmHg Heart Rate 80 /min Respiratory Rate 19 /min Height 65 inches 5'5" Weight 191.00 lb BMI (Body Mass Index) 31.8 kg/m2 BSA (Body Surface Area) 1.94 m2 10/05/2014 2:01pm Heart Rate 80 /min Height 65 inches 5'5" Weight 185.00 lb BMI (Body Mass Index) 30.8 kg/m2 BSA (Body Surface Area) 1.91 m2 09/29/2014 2:06pm Height 65 inches 5'5" Weight 190.00 lb BMI (Body Mass Index) 31.6 kg/m2 BSA (Body Surface Area) 1.94 m2 09/21/2014 4:24pm BP Systolic 140 mmHg BP Diastolic 82 mmHg Body Temperature 97.6 F Respiratory Rate 18 /min Height 65 inches 5'5" Weight 189.00 lb 07/31/2014 11:30am BP Systolic 126 mmHg BP Diastolic 76 mmHg Heart Rate 80 /min Respiratory Rate 18 /min Weight 178.00 lb 07/17/2014 11:36am BP Systolic 172 mmHg BP Diastolic 100 mmHg Heart Rate 80 /min Respiratory Rate 18 /min Height 65 inches 5'5" Weight 175.00 lb Results Test Date Facility Test Result H/L Range Note Glycohemoglobin A1c [address] [address] Glycohemoglobin 6.1 % N 4.2-6.3 1, 2 9 4077 [facility] (A1c) [place], [place] [id number] [phone] eAG 128 mg/dL LDL Cholesterol Profile 07/30/[address] Cholesterol 133 mg/dL <200 3 4077 [place], [place] [id number] [phone] Triglycerides 121 mg/dL <150 4 HDL Cholesterol 48 mg/dL >40 5 LDL-Cholesterol 61 mg/dL < 100 6 Basic Metabolic Panel 07/30/[address] Glucose 156 mg/dL High 74-106 4077 [place], [place] [id number] [phone] BUN 13 mg/dL N 7-18 Creatinine 1.0 mg/dL N 0.6-1.3 Glom Filtration Rate, Estimate >60 mL/min >60 If >60 mL/min >60 7 BUN/Creat 13.0 ratio Sodium 137 mmol/L N 136-145 Potassium 4.0 mmol/L N 3.5-5.1 Chloride 104 mmol/L N 98-107 Carbon Dioxide 27 mmol/L N 21-32 Anion Gap 6 mEq/L Low 8-16 Calcium 8.9 mg/dL N 8.5-10.1 Glycohemoglobin 04/18/[address] Glycohemoglobin 6.8 % High 4.2-6.3 [address] [place] [address] (A1c) [place], [place] 6235759 [phone] eAG 148 mg/dL Microalbumin,Random 04/18/[address] Microalbumin,Urine < 5.0 < 20.[address] [place] [address] mg/L [place], [place] [id number] [phone] Urine Dipstick 04/18/2018 [facility] Ua Color yellow Yellow Ua Clarity clear Clear Ua Leuko negative Negative Ua Nitrite negaitve Negative Ua Urobilinogen 3.5 umol/L High 0.2 - 1.0 E.U./dL Ua Protein negative Negative Ua PH 6.0 Low 6.5-7.5 Ua Blood negative Negative Ua Specific [place] 1.015 1.010-1.030 Ua Ketones negative Negative Ua Bilirubin negative Negative Ua Glucose negative Negative Glycohemoglobin 01/31/[address] Glycohemoglobin 6.6 % High 4.2-6.3 [address] [place] [address] (A1c) [place] 5449876 [phone] eAG 143 mg/dL Basic Metabolic Panel 01/31/[address] Glucose 101 mg/dL N 74- [address] [place] [address] [id number] [phone] BUN 9 mg/dL N 7-18 Creatinine 0.9 mg/dL N 0.6-1.3 Glom Filtration Rate, Estimate >60 mL/min >60 If >60 mL/min >60 10 BUN/Creat 10.0 ratio Sodium 142 mmol/L N 136-145 Potassium 4.1 mmol/L N 3.5-5.1 Chloride 108 mmol/L High 98-107 Carbon Dioxide 26 mmol/L N 21-32 Anion Gap 8 mEq/L N 8-16 Calcium 8.8 mg/dL N 8.5-10.1 LDL Cholesterol Profile 01/31/[address] [facility] [address] Cholesterol 99 mg/dL <[address] [place] [address] [phone] Triglycerides 98 mg/dL <150 12 HDL Cholesterol 41 mg/dL >40 13 LDL-Cholesterol 38 mg/dL < 100 14 Glycohemoglobin 10/31/2017 [facility] Glycohemoglobin 7.7 % High 4.2-6.3 15, A1c [address] (A1c) 16 [place] [address] [phone] eAG 174 mg/dL Microalb/Creat 10/31/2017 [facility] Microalbumin,Urine < 5.0 < 20.0 Ratio,Random [address] mg/[place] [address] [phone] Microalbumin/Creatinine Ratio TNP ug/mgCrt < 30.0 17 Urine Creatinine Conc 75 mg/dL Basic Metabolic Panel 10/31/2017 [facility] Glucose 172 mg/dL High 74-[address] [place] [address] [phone] BUN 12 mg/dL N 7-18 Creatinine 0.9 mg/dL N 0.6-1.3 Glom Filtration Rate, Estimate >60 mL/min >60 If >60 mL/min >60 18 BUN/Creat 13.3 ratio Sodium 138 mmol/L N 136-145 Potassium 4.3 mmol/L N 3.5-5.1 Chloride 105 mmol/L N 98-107 Carbon Dioxide 27 mmol/L N 21-32 Anion Gap 6 mEq/L Low 8-16 Calcium 8.8 mg/dL N 8.5-10.1 Laboratory test 08/12/2017 [facility] Troponin-I < 0.015 19, [address] ng/[place] [address] [phone] CBS W/Automated 08/12/2017 [facility] White Blood 6.1 K/uL N 3.4-[address] Count 0.5 [place] [address] [phone] Red Blood Count 4.92 M/uL N 4.20-5.80 Hemoglobin 15.3 gm/dL N 12.8-17.0 Hematocrit 42.5 % N 38.0-48.0 Mean Cell Volume 86.4 fl N 80.0-96.0 Mean Corpuscular HGB 31.1 pg N 27.0-33.0 Mean Corpuscular HGB Conc 36.0 g/dL N 31.7-36.0 Platelet Count 295 K/uL N 155-360 Red Cell Distri Width SD 41.5 fl N 36-51 Red Cell Distri Width %CV 13.4 % N 11.6-15.8 Mean Platelet Volume 8.2 fL N 6.6-10.6 Neut% 50.1 % N 33.0-73.0 Lymph % 30.7 % N 20.0-42.0 Hickman % 13.4 % High 0.0-10.0 Eo% 5.1 % N 0.0-6.6 Bas% 0.7 % N 0.0-1.1 Neut# 3.06 K/uL N 1.8-7.0 Lymph # 1.87 K/uL N 1.0-4.0 Hickman # 0.82 K/uL High 0.0-0.8 Eos # 0.31 K/uL N 0.0-0.5 Baso # 0.04 K/uL N 0.0-0.1 Comprehensive Metabolic 08/12/2017 [facility] Glucose 128 mg/dL High 74-106 Panel [address] [place] [address] [phone] BUN 16 mg/dL N 7-18 Creatinine 0.9 mg/dL N 0.6-1.3 Glom Filtration Rate, Estimate >60 mL/min >60 If >60 mL/min >60 21 BUN/Creat 17.7 ratio Sodium 137 mmol/L N 136-145 Potassium 3.8 mmol/L N 3.5-5.1 Chloride 103 mmol/L N 98-107 Carbon Dioxide 28 mmol/L N 21-32 Anion Gap 6 mEq/L Low 8-16 Calcium 8.8 mg/dL N 8.5-10.1 Total Protein 7.3 g/dL N 6.4-8.2 Albumin 3.9 g/dL N 3.4-5.0 Globulin 3.4 g/dL N 1.9-4.3 Alb/Glob 1.1 ratio Bilirubin,Total 0.4 mg/dL N 0.2-1.0 Sgot/Ast 21 U/L N 15-37 SGPT/Alt 32 U/L N 12-78 Alkaline Phosphatase 37 U/L Low 45-117 Laboratory test finding 08/12/2017 [facility] CK 141 U/L N 39-[address] [place], [place] [id number] [phone] Troponin-I < 0.015 ng/mL 22 Prostate 08/03/2017 [facility] PSA (Richardson 0.56 ng/mL < 4.0 23, 24 Specific Antigen [address] Loci) [place], [place] [id number] [phone] Reflex add FT3? Y Reflex add FT4? Y Glycohemoglobin 08/03/2017 [facility] Glycohemoglobin 6.9 % High 4.2-6.[address] (A1c) [place], [place] [id number] [phone] eAG 151 mg/dL LDL Cholesterol Profile 08/03/2017 [facility] Cholesterol 154 mg/dL <[address] [place], [place] [address] [phone] Triglycerides 143 mg/dL <150 27 HDL Cholesterol 52 mg/dL >40 28 LDL-Cholesterol 73 mg/dL < 100 29 Reflex add FT3? Y Reflex add FT4? Y TSH Reflex FT4 08/03/2017 [facility] Thyroid Stim 1.73 uIU/mL N 0.30-4.20 And/Or FT3 [address] Hormone [place], [place] [id number] [phone] Reflex add FT3? Y Reflex add FT4? Y Basic Metabolic Panel 08/03/2017 [facility] Glucose 213 mg/dL High 74-[address] [place], [place] 9722628 [phone] BUN 14 mg/dL N 7-18 Creatinine 1.1 mg/dL N 0.6-1.3 Glom Filtration Rate, Estimate >60 mL/min >60 If >60 mL/min >60 30 BUN/Creat 12.7 ratio Sodium 138 mmol/L N 136-145 Potassium 4.1 mmol/L N 3.5-5.1 Chloride 104 mmol/L N 98-107 Carbon Dioxide 26 mmol/L N 21-32 Anion Gap 8 mEq/L N 8-16 Calcium 9.0 mg/dL N 8.5-10.1 Reflex add FT3? Y Reflex add FT4? Y LDL Cholesterol 06/04/2017 [facility] Cholesterol 140 mg/dL <200 31, 32 Profile [address] [place], [place] 5134082 [phone] Triglycerides 125 mg/dL <150 33 HDL Cholesterol 47 mg/dL >40 34 LDL-Cholesterol 68 mg/dL < 100 35 Liver Function Tests 06/04/2017 [facility] Total Protein 7.1 g/dL N 6.4-8.2 [address] [place], [place] 8283278 [phone] Albumin 3.8 g/dL N 3.4-5.0 Globulin 3.3 g/dL N 1.9-4.3 Alb/Glob 1.2 ratio Bilirubin,Total 0.4 mg/dL N 0.2-1.0 Bilirubin,Direct < 0.1 mg/dL N 0.0-0.2 Bilirubin,Indirect 0.3 mg/dL N 0.0-0.9 Sgot/Ast 24 U/L N 15-37 SGPT/Alt 42 U/L N 12-78 Alkaline Phosphatase 34 U/L Low 45-117 Glycohemoglobin 05/03/2017 [facility] Glycohemoglobin 6.9 % High 4.2-6.3 36, A1c [address] [facility] (A1c) 37 [place], [place] [address]64 [phone] eAG 151 mg/dL Basic Metabolic Panel 05/03/2017 [facility] Glucose 196 mg/dL High 74-106 [address] [place] [address] [phone] BUN 12 mg/dL N 7-18 Creatinine 1.2 mg/dL N 0.6-1.3 Glom Filtration Rate, Estimate >60 mL/min >60 If >60 mL/min >60 38 BUN/Creat 10.0 ratio Sodium 140 mmol/L N 136-145 Potassium 4.0 mmol/L N 3.5-5.1 Chloride 105 mmol/L N 98-107 Carbon Dioxide 29 mmol/L N 21-32 Anion Gap 6 mEq/L Low 8-16 Calcium 9.0 mg/dL N 8.5-10.1 Glycohemoglobin 01/31/2017 [facility] Glycohemoglobin 7.1 % High 4.2-6.3 39, A1c [address] (A1c) 40 [place], [place] 1150754 [phone] eAG 157 mg/dL Laboratory test finding 12/21/2016 [facility] BUN 12 mg/dL N 7-[address] [place], [place] 9[address]87 [phone] Creatinine 1.0 mg/dL N 0.6-1.3 Glycohemoglobin 10/31/2016 [facility] Glycohemoglobin 7.4 % High 4.2-6.3 42, A1c [address] (A1c) 43 [place] [address] [phone] eAG 166 mg/dL Microalb/Creat 10/31/2016 [facility] Microalbumin,Urine < 5.0 < 20.0 Ratio,Random [address] mg/[place] [address] [phone] Microalbumin/Creatinine Ratio TNP ug/mgCrt < 30.0 44 Urine Creatinine Conc 47 mg/dL Comprehensive Metabolic 10/31/2016 [facility] Glucose 208 mg/dL High 74-106 Panel [address] [place] [address] [phone] BUN 12 mg/dL N 7-18 Creatinine 1.0 mg/dL N 0.6-1.3 Glom Filtration Rate, Estimate >60 mL/min >60 If >60 mL/min >60 45 BUN/Creat 12.0 ratio Sodium 140 mmol/L N 136-145 Potassium 4.4 mmol/L N 3.5-5.1 Chloride 103 mmol/L N 98-107 Carbon Dioxide 29 mmol/L N 21-32 Anion Gap 8 mEq/L N 8-16 Calcium 8.9 mg/dL N 8.5-10.1 Total Protein 7.1 g/dL N 6.4-8.2 Albumin 3.9 g/dL N 3.4-5.0 Globulin 3.2 g/dL N 1.9-4.3 Alb/Glob 1.2 ratio Bilirubin,Total 0.4 mg/dL N 0.2-1.0 Sgot/Ast 24 U/L N 15-37 SGPT/Alt 48 U/L N 12-78 Alkaline Phosphatase 33 U/L Low 45-117 LDL Cholesterol Profile 10/31/2016 [facility] Cholesterol 161 mg/dL <[address] [place] [id number] [phone] Triglycerides 190 mg/dL High <150 47 HDL Cholesterol 48 mg/dL >40 48 LDL-Cholesterol 75 mg/dL < 100 49 Laboratory test 08/18/2016 [facility] Laboratory Point of Care 147 High 74-106 50 finding [phone] Glucose mg/dL Glycohemoglobin 08/02/2016 [facility] Glycohemoglobin 6.6 % High 4.2-6.3 51, A1c [address] (A1c) 52 [place], [place] [address]229793 [phone] eAG 143 mg/dL Laboratory test 07/14/2016 [facility] Glucose,Bedside 113 High 70-110 [address] mg/dL [place], [place] 8078680 [phone] Laboratory test 07/14/2016 [facility] Glucose,Bedside 201 High 70-[address] mg/dL [place] [address] [phone] Laboratory test 07/12/2016 [facility] Glucose,Bedside 103 N 70-[address] mg/[place] [address] [phone] Laboratory test 07/12/2016 [facility] Glucose,Bedside 198 High 70-[address] mg/[place] [address] [phone] Laboratory test 07/10/2016 [facility] Glucose,Bedside 92 mg/dL N 70-[address] [place] [address] [phone] Laboratory test 07/10/2016 [facility] Glucose,Bedside 81 mg/dL N 70-[address] [place], [place] [address] [phone] Laboratory test 07/10/2016 [facility] Glucose,Bedside 60 mg/dL Low 70-[address] [place] [address] [phone] Laboratory test 07/10/2016 [facility] Glucose,Bedside 131 High 70-[address] mg/[place] [address] [phone] Laboratory test 07/05/2016 [facility] Glucose,Bedside 125 High 70-[address] mg/[place] [address] [phone] Laboratory test 07/05/2016 [facility] Glucose,Bedside 243 High 70-[address] mg/[place] [address] [phone] Laboratory test 07/03/2016 [facility] Glucose,Bedside 95 mg/dL N 70-[address] [place] [address] [phone] Laboratory test 07/03/2016 [facility] Glucose,Bedside 192 High 70-[address] mg/[place] [address] [phone] Laboratory test 06/30/2016 [facility] Glucose,Bedside 107 N 70-[address] mg/[place] [address] [phone] Laboratory test 06/30/2016 [facility] Glucose,Bedside 177 High 70-[address] mg/[place] [address] [phone] Laboratory test 06/26/2016 [facility] Glucose,Bedside 84 mg/dL N 70-110 [address] [place] [address] [phone] Laboratory test 06/26/2016 [facility] Glucose,Bedside 134 High 70-110 [address] mg/[place] [address] [phone] Laboratory test 06/23/2016 [facility] Glucose,Bedside 86 mg/dL N 70-110 [address] [place] [address] [phone] Laboratory test 06/23/2016 [facility] Glucose,Bedside 112 High 70-110 [address] mg/[place] [address] [phone] Laboratory test 06/21/2016 [facility] Glucose,Bedside 158 High 70-[address] mg/[place] [address] [phone] Laboratory test 06/21/2016 [facility] Glucose,Bedside 228 High 70-[address] mg/[place] [address] [phone] LDL Cholesterol 06/16/2016 [facility] Cholesterol 127 N <200 58, Profile [address] mg/dL 59 [place] [address] [phone] Triglycerides 113 mg/dL N <150 60 HDL Cholesterol 48 mg/dL N >40 61 LDL-Cholesterol 56 mg/dL N < 100 62 Laboratory test 06/14/2016 [facility] Glucose,Bedside 96 N 70-110 [address] mg/[place] [address] [phone] Laboratory test 06/14/2016 [facility] Glucose,Bedside 220 High 70-[address] mg/[place] [address] [phone] Laboratory test 06/09/2016 [facility] Glucose,Bedside 101 N 70-[address] mg/[place] [address] [phone] Laboratory test 06/09/2016 [facility] Glucose,Bedside 237 High 70-[address] mg/[place] [address] [phone] Laboratory test 06/07/2016 [facility] Glucose,Bedside 95 N 70-[address] mg/[place] [address] [phone] Laboratory test 06/07/2016 [facility] Glucose,Bedside 142 High 70-[address] mg/[place] [address] [phone] Laboratory test 06/05/2016 [facility] Glucose,Bedside 150 High 70-[address] mg/[place] [address] [phone] Laboratory test 06/05/2016 [facility] Glucose,Bedside 176 High 70-[address] mg/[place] [address] [phone] Laboratory test 05/31/2016 [facility] Glucose,Bedside 137 High 70-[address] mg/[place] [address] [phone] Laboratory test 05/31/2016 [facility] Glucose,Bedside 229 High 70-[address] mg/[place] [address] [phone] Laboratory test 05/22/2016 [facility] Glucose,Bedside 89 N 70-[address] mg/[place] [address] [phone] Laboratory test 05/22/2016 [facility] Glucose,Bedside 96 N 70-[address] mg/[place] [address] [phone] Laboratory test 05/19/2016 [facility] Glucose,Bedside 175 High 70-[address] mg/[place] [address] [phone] Laboratory test 05/19/2016 [facility] Glucose,Bedside 93 N 70-[address] mg/[place] [address] [phone] Laboratory test 05/17/2016 [facility] Glucose,Bedside 177 High 70-[address] mg/[place] [address] [phone] Laboratory test 05/17/2016 [facility] Glucose,Bedside 84 N 70-[address] mg/[place] [address] [phone] Laboratory test 05/15/2016 [facility] Glucose,Bedside 198 High 70-[address] mg/[place] [address] [phone] Laboratory test 05/15/2016 [facility] Glucose,Bedside 109 N 70-[address] mg/[place] [address] [phone] Laboratory test 05/10/2016 [facility] Glucose,Bedside 181 High 70-[address] mg/[place] [address] [phone] Laboratory test 05/10/2016 [facility] Glucose,Bedside 88 N 70-[address] mg/[place] [address] [phone] Laboratory test 05/08/2016 [facility] Glucose,Bedside 226 High 70-[address] mg/[place] [address] [phone] Laboratory test 05/08/2016 [facility] Glucose,Bedside 120 High 70-[address] mg/[place] [address] [phone] Laboratory test 05/05/2016 [facility] Glucose,Bedside 158 High 70-[address] mg/[place] [address] [phone] Laboratory test 05/05/2016 [facility] Glucose,Bedside 248 High 70-[address] mg/[place] [address] [phone] Laboratory test 05/03/2016 [facility] Glucose,Bedside 101 N 70-[address] mg/[place] [address] [phone] Laboratory test 05/03/2016 [facility] Glucose,Bedside 164 High 70-[address] mg/[place] [address] [phone] Glycohemoglobin 05/02/2016 [facility] Glycohemoglobin 6.7 % High 4.2-6.3 64, A1c [address] (A1c) 65 [place] [address] [phone] eAG 146 mg/dL N LDL Cholesterol Profile 05/02/2016 [facility] Cholesterol 136 mg/dL N <[address] [place] [address] [phone] Triglycerides 135 mg/dL N <150 67 HDL Cholesterol 45 mg/dL N >40 68 LDL-Cholesterol 64 mg/dL N < 100 69 Comprehensive Metabolic 05/02/2016 [facility] Glucose 149 mg/dL High 74-[address] [place] [address] [phone] BUN 11 mg/dL N 7-18 Creatinine 1.0 mg/dL N 0.6-1.3 Glom Filtration Rate, Estimate >60 mL/min N >60 If >60 mL/min N >60 70 BUN/Creat 11.0 ratio N Sodium 139 mmol/L N 136-145 Potassium 4.2 mmol/L N 3.5-5.1 Chloride 104 mmol/L N 98-107 Carbon Dioxide 31 mmol/L N 21-32 Anion Gap 4 mEq/L Low 8-16 Calcium 8.5 mg/dL N 8.5-10.1 Total Protein 7.0 g/dL N 6.4-8.2 Albumin 3.9 g/dL N 3.4-5.0 Globulin 3.1 g/dL N 1.9-4.3 Alb/Glob 1.3 ratio N Bilirubin,Total 0.4 mg/dL N 0.2-1.0 Sgot/Ast 31 U/L N 15-37 SGPT/Alt 55 U/L N 12-78 Alkaline Phosphatase 41 U/L Low 45-117 Laboratory 05/01/2016 [facility] Glucose,Bedside 199 High 70-110 71 test finding [address] mg/[place] [address] [phone] Laboratory 05/01/2016 [facility] Glucose,Bedside 131 High 70-110 test finding [address] mg/[place] [address] [phone] Laboratory 02/10/2016 [facility] Glucose,Bedside 59 mg/dL Low 70-110 72, test finding [address] [place] [address] [phone] Laboratory 02/10/2016 [facility] Pathology Specimen (SEE N 74 test finding [address] NOTE) [place] [address] [phone] Laboratory 02/10/2016 [facility] Glucose,Bedside 136 High 70-110 75 test finding [address] mg/[place] [address] [phone] CBC 02/07/2016 [facility] White Blood Count 6.9 K/uL N 3.4-10.[address] [place], [place] [address] [phone] Red Blood Count 4.96 M/uL N 4.20-5.80 Hemoglobin 15.3 gm/dL N 12.8-17.0 Hematocrit 44.0 % N 38.0-48.0 Mean Cell Volume 88.7 fl N 80.0-96.0 Mean Corpuscular HGB 30.8 pg N 27.0-33.0 Mean Corpuscular HGB Conc 34.8 g/dL N 31.7-36.0 Platelet Count 376 K/uL N 150-400 Red Cell Distri Width %CV 13.1 % N 11.6-15.8 Mean Platelet Volume 8.4 fL N 6.6-10.6 Urine Screen 02/07/2016 [facility] Urine Color YELLOW N Yellow [address] [place] [address] [phone] Urine Clarity CLEAR N Clear Urine Glucose - Dipstick NEGATIVE mg/dL N Negative Urine Bilirubin - Dipstick NEGATIVE N Negative Urine Ketone NEGATIVE mg/dL N Negative Urine Specific [place] <=1.005 Low 1.010-1.030 Urine Blood NEGATIVE N Negative Urine PH 6.0 Low 6.5-7.5 Urine Protein - Dipstick NEGATIVE mg/dL N Negative Urine Urobilinogen - Dipstick 0.2 E.U./dL N 0.2-1.0 Urine Nitrite - Dipstick NEGATIVE N Negative Urine Leuk Esterase NEGATIVE N Negative Source: URINE, CLEAN CAT <SEE NOTE> 77 Glycohemoglobin 01/28/2016 [facility] Glycohemoglobin 7.8 % High 4.2-6.3 78 A1c [address] [facility] (A1c) [place] [address] [phone] eAG 177 mg/dL Basic Metabolic Panel 12/07/2015 [facility] Glucose 256 mg/dL High 74-106 [address] [place] [address] [phone] BUN 11 mg/dL 7-18 Creatinine 1.0 mg/dL 0.6-1.3 Glom Filtration Rate, Estimate >60 mL/min >60 If >60 mL/min >60 79 BUN/Creat 11.0 ratio Sodium 134 mmol/L Low 136-145 Potassium 4.5 mmol/L 3.5-5.1 Chloride 100 mmol/L 98-107 Carbon Dioxide 28 mmol/L 21-32 Anion Gap 6 mEq/L Low 8-16 Calcium 9.0 mg/dL 8.5-10.1 CBC W/Automated Diff 12/07/2015 [facility] White Blood 6.2 K/uL 3.4-10.[address] [place] [address] [phone] Red Blood Count 5.19 M/uL 4.20-5.80 Hemoglobin 16.0 gm/dL 12.8-17.0 Hematocrit 45.3 % 38.0-48.0 Mean Cell Volume 87.3 fl 80.0-96.0 Mean Corpuscular HGB 30.8 pg 27.0-33.0 Mean Corpuscular HGB Conc 35.3 g/dL 31.7-36.0 Platelet Count 287 K/uL 150-400 Red Cell Distri Width SD 41.9 fl 36-51 Red Cell Distri Width %CV 13.4 % 11.6-15.8 Mean Platelet Volume 8.6 fL 6.6-10.6 Neut% 46.2 % 33.0-73.0 Lymph % 28.6 % 17.0-56.0 Hickman % 8.6 % 0.0-10.0 Eo% 15.5 % High 0.0-5.0 Bas% 1.1 % High 0.1-1.0 Neut# 2.85 K/uL 1.8-7.0 Lymph # 1.77 K/uL Low 1.8-7.0 Hickman # 0.53 K/uL 0.0-0.8 Eos # 0.96 K/uL High 0.0-0.5 Baso # 0.07 K/uL Low 0.1-0.2 Protime 12/07/2015 [facility] Protime 13.9 seconds 12.0-14.[address] [place], [place] [id number] [phone] Inr 1.1 0.9-1.1 80 Laboratory test 12/07/2015 [facility] Act Partial 36.7 High 23.4-35.0 [address] [place] [address] [phone] LDL Cholesterol 12/07/2015 [facility] Cholesterol 158 mg/dL <200 [address] [place] [address] [phone] Triglycerides 294 mg/dL High <150 83 HDL Cholesterol 46 mg/dL >40 84 LDL-Cholesterol 53 mg/dL < 100 85 Basic Metabolic 11/08/2015 [facility] Basic Metabolic (SEE NOTE) [address] [place] [address] [phone] Glucose 201 mg/dL High 74-106 BUN 9 mg/dL 7-18 Creatinine 1.1 mg/dL 0.6-1.3 Glom Filtration Rate, Estimate >60 mL/min >60 If >60 mL/min >60 87 BUN/Creat 8.1 ratio Sodium 135 mmol/L Low 136-145 Potassium 4.3 mmol/L 3.5-5.1 Chloride 100 mmol/L 98-107 Carbon Dioxide 27 mmol/L 21-32 Anion Gap 8 mEq/L 8-16 Calcium 9.1 mg/dL 8.5-10.1 Glycohemoglobin 11/08/2015 [facility] Glycohemoglobin 9.1 % High 4.2-6.[address] (A1c) [place], [place] [id number] [phone] eAG 214 mg/dL Microalb/Creat 11/08/2015 [facility] Microalbumin,Urine < 5.0 < 20.0 Ratio,Random Ur [address] mg/[place] [address] [phone] Microalbumin/Creatinine Ratio See Note ug/mgCrt < 30.0 89 Urine Creatinine Conc 36 mg/dL Comprehensive Metabolic 11/04/2015 [facility] Glucose 176 mg/dL High 74-[address] [place] [address] [phone] BUN 12 mg/dL 7-18 Creatinine 1.0 mg/dL 0.6-1.3 Glom Filtration Rate, Estimate >60 mL/min >60 If >60 mL/min >60 90 BUN/Creat 12.0 ratio Sodium 137 mmol/L 136-145 Potassium 4.9 mmol/L 3.5-5.1 Chloride 102 mmol/L 98-107 Carbon Dioxide 28 mmol/L 21-32 Anion Gap 7 mEq/L Low 8-16 Calcium 9.4 mg/dL 8.5-10.1 Total Protein 7.4 g/dL 6.4-8.2 Albumin 4.1 g/dL 3.4-5.0 Globulin 3.3 g/dL 1.9-4.3 Alb/Glob 1.2 ratio Bilirubin,Total 0.4 mg/dL 0.2-1.0 Sgot/Ast 28 U/L 15-37 SGPT/Alt 74 U/L 12-78 Alkaline Phosphatase 47 U/L 45-117 CBC W/Automated Diff 11/04/2015 [facility] White Blood 5.9 K/uL 3.4-10.[address] [place] [place] [address] [phone] Red Blood Count 5.24 M/uL 4.20-5.80 Hemoglobin 16.1 gm/dL 12.8-17.0 Hematocrit 45.7 % 38.0-48.0 Mean Cell Volume 87.2 fl 80.0-96.0 Mean Corpuscular HGB 30.7 pg 27.0-33.0 Mean Corpuscular HGB Conc 35.2 g/dL 31.7-36.0 Platelet Count 293 K/uL 150-400 Red Cell Distri Width SD 40.9 fl 36-51 Red Cell Distri Width %CV 13.3 % 11.6-15.8 Mean Platelet Volume 8.8 fL 6.6-10.6 Neut% 54.4 % 33.0-73.0 Lymph % 29.6 % 17.0-56.0 Hickman % 10.3 % High 0.0-10.0 Eo% 5.0 % 0.0-5.0 Bas% 0.7 % 0.1-1.0 Neut# 3.19 K/uL 1.8-7.0 Lymph # 1.73 K/uL Low 1.8-7.0 Hickman # 0.60 K/uL 0.0-0.8 Eos # 0.29 K/uL 0.0-0.5 Baso # 0.04 K/uL Low 0.1-0.2 Urine Screen 11/04/2015 [facility] Urine Color YELLOW Yellow [address] [place] [address] [phone] Urine Clarity CLEAR Clear Urine Glucose - Dipstick >=1000 mg/dL High Negative Urine Bilirubin - Dipstick NEGATIVE Negative Urine Ketone NEGATIVE mg/dL Negative Urine Specific [place] 1.010 1.010-1.030 Urine Blood NEGATIVE Negative Urine PH 5.0 Low 6.5-7.5 Urine Protein - Dipstick NEGATIVE mg/dL Negative Urine Urobilinogen - Dipstick 0.2 E.U./dL 0.2-1.0 Urine Nitrite - Dipstick NEGATIVE Negative Urine Leuk Esterase NEGATIVE Negative Basic Metabolic Panel 08/09/2015 [facility] Glucose 354 mg/dL High 74-106 [address] [place] [address] [phone] BUN 10 mg/dL 7-18 Creatinine 1.1 mg/dL 0.6-1.3 Glom Filtration Rate, Estimate >60 mL/min >60 If >60 mL/min >60 91 BUN/Creat 9.0 ratio Sodium 137 mmol/L 136-145 Potassium 4.4 mmol/L 3.5-5.1 Chloride 98 mmol/L 98-107 Carbon Dioxide 27 mmol/L 21-32 Anion Gap 12 mEq/L 8-16 Calcium 8.8 mg/dL 8.5-10.1 Glycohemoglobin 08/09/2015 [facility] Glycohemoglobin 9.4 % High 4.2-6.[address] (A1c) [place] [address] [phone] eAG 223 mg/dL LDL Cholesterol 08/09/2015 [facility] Cholesterol 149 mg/dL Low 150-200 [address] [place] [address] [phone] Triglycerides 268 mg/dL High 50-150 94 HDL Cholesterol 37 mg/dL Low 60-150 95 LDL-Cholesterol 58 mg/dL Low 75-100 96 Liver Function Tests 08/09/2015 [facility] Total Protein 7.1 g/dL 6.4-8.[address] [place] [address] [phone] Albumin 4.0 g/dL 3.4-5.0 Globulin 3.1 g/dL 1.9-4.3 Alb/Glob 1.3 ratio Bilirubin,Total 0.4 mg/dL 0.2-1.0 Bilirubin,Direct 0.1 mg/dL 0.0-0.2 Bilirubin,Indirect 0.3 mg/dL 0.0-0.9 Sgot/Ast 23 U/L 15-37 SGPT/Alt 59 U/L 12-78 Alkaline Phosphatase 62 U/L 45-117 Microalb/Creat 08/09/2015 [facility] Microalbumin,Urine < 5.0 < 20.0 Ratio,Random Ur [address] mg/[place] [address] [phone] Microalbumin/Creatinine Ratio See Note ug/mgCrt < 30.0 97 Urine Creatinine Conc 64 mg/dL Laboratory test 06/30/2015 [facility] Polyp Colon And/Or See [address] [place] [place] [address] [phone] Glycohemoglobin A1c 04/06/2015 [facility] Glycohemoglobin 7.9 % High 4.[address] (A1c) -6. [place] [address] 3 [phone] eAG 180 mg/dL LDL Cholesterol 04/06/2015 [facility] Cholesterol 277 mg/dL High 150-200 [address] [place], [place] [address] [phone] Triglycerides 393 mg/dL High 50-150 101 HDL Cholesterol 46 mg/dL Low 60-150 102 LDL-Cholesterol 152 mg/dL High 75-100 103 Liver Function Tests 04/06/2015 [facility] Total Protein 7.7 g/dL 6.4-8.[address] [place], [place] [id number] [phone] Albumin 4.2 g/dL 3.4-5.0 Globulin 3.5 g/dL 1.9-4.3 Alb/Glob 1.2 ratio Bilirubin,Total 0.4 mg/dL 0.2-1.0 Bilirubin,Direct < 0.1 mg/dL 0.0-0.2 Bilirubin,Indirect 0.3 mg/dL 0.0-0.9 Sgot/Ast 34 U/L 15-37 SGPT/Alt 55 U/L 12-78 Alkaline Phosphatase 36 U/L Low 45-117 Laboratory test finding 04/06/2015 N2N/CCD Import Estimated Average 180 Glucose (eAG) Hemoglobin A1c 7.9 High 4.2-6.3 Sodium Level 137 136-145 Laboratory test 04/06/2015 [facility] Prostate 0.31 ng/mL [address] [place] [address] Antigen [phone] Basic Metabolic 04/06/2015 [facility] Glucose 160 mg/dL High 74-[address] [place], [place] [id number] [phone] BUN 16 mg/dL 7-18 Creatinine 1.0 mg/dL 0.6-1.3 Glom Filtration Rate, Estimate >60 mL/min >60 If >60 mL/min >60 105 BUN/Creat 16.0 ratio Sodium 137 mmol/L 136-145 Potassium 4.6 mmol/L 3.5-5.1 Chloride 102 mmol/L 98-107 Carbon Dioxide 31 mmol/L 21-32 Anion Gap 4 mEq/L Low 8-16 Calcium 9.0 mg/dL 8.5-10.1 Basic Metabolic Panel 11/23/2014 [facility] Glucose 76 mg/dL 74-106 [address] [place] [address] [phone] BUN 9 mg/dL 7-18 Creatinine 0.9 mg/dL 0.6-1.3 Glom Filtration Rate, Estimate >60 mL/min >60 If >60 mL/min >60 106 BUN/Creat 10.0 ratio Sodium 139 mmol/L 136-145 Potassium 4.3 mmol/L 3.5-5.1 Chloride 103 mmol/L 98-107 Carbon Dioxide 30 mmol/L 21-32 Anion Gap 6 mEq/L Low 8-16 Calcium 9.2 mg/dL 8.5-10.1 Glycohemoglobin 11/23/2014 [facility] Glycohemoglobin 6.8 % High 4.2-6.3 107 A1c [address] [facility] (A1c) [place] [address] [phone] eAG 148 mg/dL LDL Cholesterol 11/23/2014 [facility] Cholesterol 240 mg/dL High 150-200 108 Profile [address] [place] [address] [phone] Triglycerides 205 mg/dL High 50-150 109 HDL Cholesterol 48 mg/dL Low 60-150 110 LDL-Cholesterol 151 mg/dL High 75-100 111 Liver Function Tests 11/23/2014 [facility] Total Protein 7.6 g/dL 6.4-8.2 [address] [place] [address] [phone] Albumin 4.3 g/dL 3.4-5.0 Globulin 3.3 g/dL 1.9-4.3 Alb/Glob 1.3 ratio Bilirubin,Total 0.3 mg/dL 0.2-1.0 Bilirubin,Direct < 0.1 mg/dL 0.0-0.2 Bilirubin,Indirect 0.2 mg/dL 0.0-0.9 Sgot/Ast 20 U/L 15-37 SGPT/Alt 41 U/L 12-78 Alkaline Phosphatase 33 U/L Low 45-117 Laboratory test 10/14/2014 [facility] Microalbumin,Random < 5.0 < 20.[address] Urine mg/[place] [address] [phone] Comprehensive 07/21/2014 N2N/CCD Import Alb/Glob 1.1 112 Metabolic Panel ratio Albumin 3.5 g/dL 3.4-5.0 Alkaline Phosphatase 30 U/L Low 45-117 Anion Gap 10 mEq/L 8-16 BUN 9 mg/dL 7-18 BUN/Creat 10.0 ratio Bilirubin,Total 0.2 mg/dL 0.2-1.0 Calcium 8.4 mg/dL Low 8.5-10.1 Carbon Dioxide 30 mmol/L 21-32 Chloride 107 mmol/L 98-107 Creatinine 0.9 mg/dL 0.6-1.3 Globulin 3.2 g/dL 1.9-4.3 Glom Filtration Rate, Estimate >60 mL/min >60 Glucose 122 mg/dL High 74-106 If >60 mL/min >60 113 Potassium 4.7 mmol/L 3.5-5.1 SGPT/Alt 33 U/L 12-78 Sgot/Ast 22 U/L 15-37 Sodium 142 mmol/L 136-145 Total Protein 6.7 g/dL 6.4-8.2 Glycohemoglobin A1c 07/21/2014 N2N/CCD Import Glycohemoglobin (A1c) 6.2 % 4.2-6.3 114 eAG 131 mg/dL LDL Cholesterol Profile 07/21/2014 N2N/CCD Import Cholesterol 200 mg/dL < 200 115 HDL Cholesterol 43 mg/dL > 40 116 LDL-Cholesterol 134 mg/dL < 100 117 Triglycerides 114 mg/dL < 150 118 Laboratory test 07/21/2014 N2N/CCD Import Hepatitis C Nonreactive finding Antibody Nonreactive Microalb/Creat Ratio,Random See Note 119 Signal/Cutoff ratio < 0.02 <0.80 120 CBC/Manual Differential 07/21/2014 N2N/CCD Import Anisocytosis 0-1+ Atypical Lymph% 3 % 0-7 Band% 2 % 0-8 Basophil% 1 % 0-2 Eosinophil% 10 % High 0-5 Hematocrit 45.2 % 38.0-48.0 Hemoglobin 15.2 gm/dL 12.8-17.0 Lymph% 39 % 17-56 Mean Cell Volume 90.2 fl 80.0-96.0 Mean Corpuscular HGB 30.3 pg 27.0-33.0 Mean Corpuscular HGB Conc 33.6 g/dL 31.7-36.0 Mean Platelet Volume 9.2 fL 6.6-10.6 Monocyte% 8 % 0-10 Neutrophils% 37 % 33-73 Platelet Count 280 K/uL 150-400 Platelet Estimate Normal Red Blood Count 5.01 M/uL 4.20-5.80 Red Cell Distri Width %CV 13.9 % 11.6-15.8 Total Cells Counted 100 #CELLS White Blood Count 5.8 K/uL 3.4-10.5 1 E11.9 2 Elevated levels of HbA1c suggest the need for more aggressive treatment of glycemia. The [place] [employer] recommends that a primary goal of therapy should be a HbA1c of <7% and that physicians should re-evaluate the treatment regimen in patients with HbA1c values consistently >8%. 3 Reference Guidelines*: Desirable: ........... < 200 mg/dL Borderline High: ..... 200-239 mg/dL High: ................ >=240 mg/dL * The National Cholesterol Education Program (NCEP) 4 Reference Guidelines*: Normal: ............. < 150 mg/dL Borderline High: .... 150-199 mg/dL High: ............... 200-499 mg/dL Very High: .......... > 500 mg/dL * Source: National Cholesterol Education Program (NCEP) 5 Reference Guidelines*: Low HDL: ..... < 40 mg/dL Normal: ..... 40-60 mg/dL Desirable: ... > 60 mg/dL *The National Cholesterol Education Program(NCEP) 6 Reference Guidelines*: Optimal:........... <100 mg/dL Near Optimal....... 100-129 mg/dL Borderline High.... 130-159 mg/dL High............... 160-189 mg/dL Very High.......... >=190 mg/dL * Source: National Cholesterol Education Program (NCEP) 7 Note: Persistent reduction for 3 months or more in an eGFR <60 mL/min/1.73 m2 defines CKD. Patients with eGFR values >/=60 mL/min/1.73 m2 may also have CKD if evidence of persistent proteinuria is present. The original MDRD equation for estimated GFR is not valid for patients less than 18 years of age. Additional information may be found at [email or web address]. 8 Elevated levels of HbA1c suggest the need for more aggressive treatment of glycemia. The [place] [employer] recommends that a primary goal of therapy should be a HbA1c of <7% and that physicians should re-evaluate the treatment regimen in patients with HbA1c values consistently >8%. 9 Elevated levels of HbA1c suggest the need for more aggressive treatment of glycemia. The [place] [employer] recommends that a primary goal of therapy should be a HbA1c of <7% and that physicians should re-evaluate the treatment regimen in patients with HbA1c values consistently >8%. 10 Note: Persistent reduction for 3 months or more in an eGFR <60 mL/min/1.73 m2 defines CKD. Patients with eGFR values >/=60 mL/min/1.73 m2 may also have CKD if evidence of persistent proteinuria is present. The original MDRD equation for estimated GFR is not valid for patients less than 18 years of age. Additional information may be found at [email or web address]. 11 Reference Guidelines*: Desirable: ........... < 200 mg/dL Borderline High: ..... 200-239 mg/dL High: ................ >=240 mg/dL * The National Cholesterol Education Program (NCEP) 12 Reference Guidelines*: Normal: ............. < 150 mg/dL Borderline High: .... 150-199 mg/dL High: ............... 200-499 mg/dL Very High: .......... > 500 mg/dL * Source: National Cholesterol Education Program (NCEP) 13 Reference Guidelines*: Low HDL: ..... < 40 mg/dL Normal: ..... 40-60 mg/dL Desirable: ... > 60 mg/dL *The National Cholesterol Education Program(NCEP) 14 Reference Guidelines*: Optimal:........... <100 mg/dL Near Optimal....... 100-129 mg/dL Borderline High.... 130-159 mg/dL High............... 160-189 mg/dL Very High.......... >=190 mg/dL * Source: National Cholesterol Education Program (NCEP) 15 E11.9 I10 16 Elevated levels of HbA1c suggest the need for more aggressive treatment of glycemia. The [place] [employer] recommends that a primary goal of therapy should be a HbA1c of <7% and that physicians should re-evaluate the treatment regimen in patients with HbA1c values consistently >8%. 17 Valid ratio could not be calculated due to non-numeric result. 18 Note: Persistent reduction for 3 months or more in an eGFR <60 mL/min/1.73 m2 defines CKD. Patients with eGFR values >/=60 mL/min/1.73 m2 may also have CKD if evidence of persistent proteinuria is present. The original MDRD equation for estimated GFR is not valid for patients less than 18 years of age. Additional information may be found at [email or web address]. 19 CP, BACK PAIN, L SIDE 20 0.0 - 0.045 ng/mL: Normal 0.046 - 0.5 ng/mL: Suggestive 0.6 - 1.5 ng/mL: Consistent 21 Note: Persistent reduction for 3 months or more in an eGFR <60 mL/min/1.73 m2 defines CKD. Patients with eGFR values >/=60 mL/min/1.73 m2 may also have CKD if evidence of persistent proteinuria is present. The original MDRD equation for estimated GFR is not valid for patients less than 18 years of age. Additional information may be found at [email or web address]. 22 0.0 - 0.045 ng/mL: Normal 0.046 - 0.5 ng/mL: Suggestive 0.6 - 1.5 ng/mL: Consistent 23 Z12.5 E11.9 24 THIS ASSAY IS NOT INTENDED A CANCER SCREENING TEST The concentration of PSA in a given specimen, determined with assays from different manufacturers, can vary due to differences in assay methods and reagent specificity. Values obtained from different assay methods cannot be used interchangeably. Method: Siemens [employer] Richardson Chemiluminescent immunoassay. 25 Elevated levels of HbA1c suggest the need for more aggressive treatment of glycemia. The [place] [employer] recommends that a primary goal of therapy should be a HbA1c of <7% and that physicians should re-evaluate the treatment regimen in patients with HbA1c values consistently >8%. 26 Reference Guidelines*: Desirable: ........... < 200 mg/dL Borderline High: ..... 200-239 mg/dL High: ................ >=240 mg/dL * The National Cholesterol Education Program (NCEP) 27 Reference Guidelines*: Normal: ............. < 150 mg/dL Borderline High: .... 150-199 mg/dL High: ............... 200-499 mg/dL Very High: .......... > 500 mg/dL * Source: National Cholesterol Education Program (NCEP) 28 Reference Guidelines*: Low HDL: ..... < 40 mg/dL Normal: ..... 40-60 mg/dL Desirable: ... > 60 mg/dL *The National Cholesterol Education Program(NCEP) 29 Reference Guidelines*: Optimal:........... <100 mg/dL Near Optimal....... 100-129 mg/dL Borderline High.... 130-159 mg/dL High............... 160-189 mg/dL Very High.......... >=190 mg/dL * Source: National Cholesterol Education Program (NCEP) 30 Note: Persistent reduction for 3 months or more in an eGFR <60 mL/min/1.73 m2 defines CKD. Patients with eGFR values >/=60 mL/min/1.73 m2 may also have CKD if evidence of persistent proteinuria is present. The original MDRD equation for estimated GFR is not valid for patients less than 18 years of age. Additional information may be found at [email or web address]. 31 E78.5 32 Reference Guidelines*: Desirable: ........... < 200 mg/dL Borderline High: ..... 200-239 mg/dL High: ................ >=240 mg/dL * The National Cholesterol Education Program (NCEP) 33 Reference Guidelines*: Normal: ............. < 150 mg/dL Borderline High: .... 150-199 mg/dL High: ............... 200-499 mg/dL Very High: .......... > 500 mg/dL * Source: National Cholesterol Education Program (NCEP) 34 Reference Guidelines*: Low HDL: ..... < 40 mg/dL Normal: ..... 40-60 mg/dL Desirable: ... > 60 mg/dL *The National Cholesterol Education Program(NCEP) 35 Reference Guidelines*: Optimal:........... <100 mg/dL Near Optimal....... 100-129 mg/dL Borderline High.... 130-159 mg/dL High............... 160-189 mg/dL Very High.......... >=190 mg/dL * Source: National Cholesterol Education Program (NCEP) 36 E11.9 I10 37 Elevated levels of HbA1c suggest the need for more aggressive treatment of glycemia. The [place] [employer] recommends that a primary goal of therapy should be a HbA1c of <7% and that physicians should re-evaluate the treatment regimen in patients with HbA1c values consistently >8%. 38 Note: Persistent reduction for 3 months or more in an eGFR <60 mL/min/1.73 m2 defines CKD. Patients with eGFR values >/=60 mL/min/1.73 m2 may also have CKD if evidence of persistent proteinuria is present. The original MDRD equation for estimated GFR is not valid for patients less than 18 years of age. Additional information may be found at [email or web address]. 39 E11.9 40 Elevated levels of HbA1c suggest the need for more aggressive treatment of glycemia. The [place] [employer] recommends that a primary goal of therapy should be a HbA1c of <7% and that physicians should re-evaluate the treatment regimen in patients with HbA1c values consistently >8%. 41 M79.601, M25.511 42 E11.9 I10 E78.5 43 Elevated levels of HbA1c suggest the need for more aggressive treatment of glycemia. The [place] [employer] recommends that a primary goal of therapy should be a HbA1c of <7% and that physicians should re-evaluate the treatment regimen in patients with HbA1c values consistently >8%. 44 Valid ratio could not be calculated due to non-numeric result. 45 Note: Persistent reduction for 3 months or more in an eGFR <60 mL/min/1.73 m2 defines CKD. Patients with eGFR values >/=60 mL/min/1.73 m2 may also have CKD if evidence of persistent proteinuria is present. The original MDRD equation for estimated GFR is not valid for patients less than 18 years of age. Additional information may be found at [email or web address]. 46 Reference Guidelines*: Desirable: ........... < 200 mg/dL Borderline High: ..... 200-239 mg/dL High: ................ >=240 mg/dL * The National Cholesterol Education Program (NCEP) 47 Reference Guidelines*: Normal: ............. < 150 mg/dL Borderline High: .... 150-199 mg/dL High: ............... 200-499 mg/dL Very High: .......... > 500 mg/dL * Source: National Cholesterol Education Program (NCEP) 48 Reference Guidelines*: Low HDL: ..... < 40 mg/dL Normal: ..... 40-60 mg/dL Desirable: ... > 60 mg/dL *The National Cholesterol Education Program(NCEP) 49 Reference Guidelines*: Optimal:........... <100 mg/dL Near Optimal....... 100-129 mg/dL Borderline High.... 130-159 mg/dL High............... 160-189 mg/dL Very High.......... >=190 mg/dL * Source: National Cholesterol Education Program (NCEP) 50 Production Control Supervisor: [id number] TAYLOR KARY 51 E11.9 52 Elevated levels of HbA1c suggest the need for more aggressive treatment of glycemia. The [place] [employer] recommends that a primary goal of therapy should be a HbA1c of <7% and that physicians should re-evaluate the treatment regimen in patients with HbA1c values consistently >8%. 53 CAD NO AMEANABLE FOR REVASCULARIZATION CATH 54 Charting This Result 55 Charting This Result 56 Charting This Result 57 Charting This Result 58 E11.9,E78.5 59 Reference Guidelines*: Desirable: ........... < 200 mg/dL Borderline High: ..... 200-239 mg/dL High: ................ >=240 mg/dL * The National Cholesterol Education Program (NCEP) 60 Reference Guidelines*: Normal: ............. < 150 mg/dL Borderline High: .... 150-199 mg/dL High: ............... 200-499 mg/dL Very High: .......... > 500 mg/dL * Source: National Cholesterol Education Program (NCEP) 61 Reference Guidelines*: Low HDL: ..... < 40 mg/dL Normal: ..... 40-60 mg/dL Desirable: ... > 60 mg/dL *The National Cholesterol Education Program(NCEP) 62 Reference Guidelines*: Optimal:........... <100 mg/dL Near Optimal....... 100-129 mg/dL Borderline High.... 130-159 mg/dL High............... 160-189 mg/dL Very High.......... >=190 mg/dL * Source: National Cholesterol Education Program (NCEP) 63 CAD NO AMEANABLE FOR REVASCULARIZATION CATH 64 E11.9 E78.5 65 Elevated levels of HbA1c suggest the need for more aggressive treatment of glycemia. The [place] [employer] recommends that a primary goal of therapy should be a HbA1c of <7% and that physicians should re-evaluate the treatment regimen in patients with HbA1c values consistently >8%. 66 Reference Guidelines*: Desirable: ........... < 200 mg/dL Borderline High: ..... 200-239 mg/dL High: ................ >=240 mg/dL * The National Cholesterol Education Program (NCEP) 67 Reference Guidelines*: Normal: ............. < 150 mg/dL Borderline High: .... 150-199 mg/dL High: ............... 200-499 mg/dL Very High: .......... > 500 mg/dL * Source: National Cholesterol Education Program (NCEP) 68 Reference Guidelines*: Low HDL: ..... < 40 mg/dL Normal: ..... 40-60 mg/dL Desirable: ... > 60 mg/dL *The National Cholesterol Education Program(NCEP) 69 Reference Guidelines*: Optimal:........... <100 mg/dL Near Optimal....... 100-129 mg/dL Borderline High.... 130-159 mg/dL High............... 160-189 mg/dL Very High.......... >=190 mg/dL * Source: National Cholesterol Education Program (NCEP) 70 Note: Persistent reduction for 3 months or more in an eGFR <60 mL/min/1.73 m2 defines CKD. Patients with eGFR values >/=60 mL/min/1.73 m2 may also have CKD if evidence of persistent proteinuria is present. The original MDRD equation for estimated GFR is not valid for patients less than 18 years of age. Additional information may be found at [email or web address]. 71 CAD NO AMEANABLE FOR REVASCULARIZATION CATH 72 [id number] 73 Charting This Result Notify Physician 74 LEFT ACROMIUM LEFT CLAVICLE Hard copy of report to be sent by mail Report may be viewed in Clinical Review, or in PCI under Medical Record Forms 75 Charting This Result Notify Physician 76 08:00 [facility] [place] 02/09 [id number] M75.122 77 URINE, CLEAN CATCH 78 Elevated levels of HbA1c suggest the need for more aggressive treatment of glycemia. The [place] [employer] recommends that a primary goal of therapy should be a HbA1c of <7% and that physicians should re-evaluate the treatment regimen in patients with HbA1c values consistently >8%. 79 Note: Persistent reduction for 3 months or more in an eGFR <60 mL/min/1.73 m2 defines CKD. Patients with eGFR values >/=60 mL/min/1.73 m2 may also have CKD if evidence of persistent proteinuria is present. The original MDRD equation for estimated GFR is not valid for patients less than 18 years of age. Additional information may be found at [email or web address]. 80 THERAPEUTIC INR RANGE: 2.0 - 3.0 DVT, Pulmonary embolus, prophylaxis against venous thrombosis or systemic embolization in high risk patients. 2.5 - 3.5 Mechanical heart valves 81 QUERY: Anticoagulant Therapy? Y QUERY: Date of Last Dose: 12/07/15 QUERY: Time of Last Dose: 999 82 Reference Guidelines*: Desirable: ........... < 200 mg/dL Borderline High: ..... 200-239 mg/dL High: ................ >=240 mg/dL * The National Cholesterol Education Program (NCEP) 83 Reference Guidelines*: Normal: ............. < 150 mg/dL Borderline High: .... 150-199 mg/dL High: ............... 200-499 mg/dL Very High: .......... > 500 mg/dL * Source: National Cholesterol Education Program (NCEP) 84 Reference Guidelines*: Low HDL: ..... < 40 mg/dL Normal: ..... 40-60 mg/dL Desirable: ... > 60 mg/dL *The National Cholesterol Education Program(NCEP) 85 Reference Guidelines*: Optimal:........... <100 mg/dL Near Optimal....... 100-129 mg/dL Borderline High.... 130-159 mg/dL High............... 160-189 mg/dL Very High.......... >=190 mg/dL * Source: National Cholesterol Education Program (NCEP) 86 QUERY: Is Patient Fasting? N 87 Note: Persistent reduction for 3 months or more in an eGFR <60 mL/min/1.73 m2 defines CKD. Patients with eGFR values >/=60 mL/min/1.73 m2 may also have CKD if evidence of persistent proteinuria is present. The original MDRD equation for estimated GFR is not valid for patients less than 18 years of age. Additional information may be found at [email or web address]. 88 Elevated levels of HbA1c suggest the need for more aggressive treatment of glycemia. The [place] [employer] recommends that a primary goal of therapy should be a HbA1c of <7% and that physicians should re-evaluate the treatment regimen in patients with HbA1c values consistently >8%. 89 Test not performed Valid ratio could not be calculated due to non-numeric result. 90 Note: Persistent reduction for 3 months or more in an eGFR <60 mL/min/1.73 m2 defines CKD. Patients with eGFR values >/=60 mL/min/1.73 m2 may also have CKD if evidence of persistent proteinuria is present. The original MDRD equation for estimated GFR is not valid for patients less than 18 years of age. Additional information may be found at [email or web address].org. 91 Note: Persistent reduction for 3 months or more in an eGFR <60 mL/min/1.73 m2 defines CKD. Patients with eGFR values >/=60 mL/min/1.73 m2 may also have CKD if evidence of persistent proteinuria is present. The original MDRD equation for estimated GFR is not valid for patients less than 18 years of age. Additional information may be found at www.[email or web address]. 92 Elevated levels of HbA1c suggest the need for more aggressive treatment of glycemia. The [place] [employer] recommends that a primary goal of therapy should be a HbA1c of <7% and that physicians should re-evaluate the treatment regimen in patients with HbA1c values consistently >8%. 93 Reference Guidelines*: Desirable: ........... < 200 mg/dL Borderline High: ..... 200-239 mg/dL High: ................ >=240 mg/dL * The National Cholesterol Education Program (NCEP) 94 Reference Guidelines*: Normal: ............. < 150 mg/dL Borderline High: .... 150-199 mg/dL High: ............... 200-499 mg/dL Very High: .......... > 500 mg/dL * Source: National Cholesterol Education Program (NCEP) 95 Reference Guidelines*: Low HDL: ..... < 40 mg/dL Normal: ..... 40-60 mg/dL Desirable: ... > 60 mg/dL *The National Cholesterol Education Program(NCEP) 96 Reference Guidelines*: Optimal:........... <100 mg/dL Near Optimal....... 100-129 mg/dL Borderline High.... 130-159 mg/dL High............... 160-189 mg/dL Very High.......... >=190 mg/dL * Source: National Cholesterol Education Program (NCEP) 97 Test not performed Valid ratio could not be calculated due to non-numeric result. 98 OPERATION/PROCEDURE Colonoscopy DIAGNOSIS: PART 1: "COLON, RANDOM BIOPSIES": - LARGE INTESTINAL MUCOSA WITH NO SIGNIFICANT PATHOLOGIC ABNORMALITIES. - NO EVIDENCE OF MICROSCOPIC/LYMPHOCYTIC COLITIS, COLLAGENOUS COLITIS OR OTHER INFLAMMATORY BOWEL PROCESS IDENTIFIED. PART 2: "COLON, RECTUM, BIOPSY": - INFLAMMATORY (RETENTION POLYP). [facility] 1032 GROSS The specimen is received in formalin in two properly labeled containers with the patient's name and accession number. Part one is designated, "RANDOM COLON BIOPSIES". The specimen consists of several pieces of soft pfeiffer, rubbery tissue measuring 0.8 x 0.6 x 0.4 cm. in aggregate. Submitted entirely, one cassette. Part two is designated, "RECTAL POLYP". The specimen consists of two pieces of soft pfeiffer, rubbery tissue measuring 0.5 x 0.3 x 0.3 cm. in aggregate. Submitted entirely, one cassette. /[facility] PRE OPERATIVE DIAGNOSIS Abdominal pain. REVIEW CODE CODE: I Signed Electronically signed GERRI DEVI MD [id number] 99 Elevated levels of HbA1c suggest the need for more aggressive treatment of glycemia. The [place] [employer] recommends that a primary goal of therapy should be a HbA1c of <7% and that physicians should re-evaluate the treatment regimen in patients with HbA1c values consistently >8%. 100 Reference Guidelines*: Desirable: ........... < 200 mg/dL Borderline High: ..... 200-239 mg/dL High: ................ >=240 mg/dL * The National Cholesterol Education Program (NCEP) 101 Reference Guidelines*: Normal: ............. < 150 mg/dL Borderline High: .... 150-199 mg/dL High: ............... 200-499 mg/dL Very High: .......... > 500 mg/dL * Source: National Cholesterol Education Program (NCEP) 102 Reference Guidelines*: Low HDL: ..... < 40 mg/dL Normal: ..... 40-60 mg/dL Desirable: ... > 60 mg/dL *The National Cholesterol Education Program(NCEP) 103 Reference Guidelines*: Optimal:........... <100 mg/dL Near Optimal....... 100-129 mg/dL Borderline High.... 130-159 mg/dL High............... 160-189 mg/dL Very High.......... >=190 mg/dL * Source: National Cholesterol Education Program (NCEP) 104 THIS ASSAY IS NOT INTENDED A CANCER SCREENING TEST The concentration of PSA in a given specimen, determined with assays from different manufacturers, can vary due to differences in assay methods and reagent specificity. Values obtained from different assay methods cannot be used interchangeably. 105 Note: Persistent reduction for 3 months or more in an eGFR <60 mL/min/1.73 m2 defines CKD. Patients with eGFR values >/=60 mL/min/1.73 m2 may also have CKD if evidence of persistent proteinuria is present. The original MDRD equation for estimated GFR is not valid for patients less than 18 years of age. Additional information may be found at www.[email or web address]. 106 Note: Persistent reduction for 3 months or more in an eGFR <60 mL/min/1.73 m2 defines CKD. Patients with eGFR values >/=60 mL/min/1.73 m2 may also have CKD if evidence of persistent proteinuria is present. The original MDRD equation for estimated GFR is not valid for patients less than 18 years of age. Additional information may be found at www.[email or web address]. 107 Elevated levels of HbA1c suggest the need for more aggressive treatment of glycemia. The [place] [employer] recommends that a primary goal of therapy should be a HbA1c of <7% and that physicians should re-evaluate the treatment regimen in patients with HbA1c values consistently >8%. 108 Reference Guidelines*: Desirable: ........... < 200 mg/dL Borderline High: ..... 200-239 mg/dL High: ................ >=240 mg/dL * The National Cholesterol Education Program (NCEP) 109 Reference Guidelines*: Normal: ............. < 150 mg/dL Borderline High: .... 150-199 mg/dL High: ............... 200-499 mg/dL Very High: .......... > 500 mg/dL * Source: National Cholesterol Education Program (NCEP) 110 Reference Guidelines*: Low HDL: ..... < 40 mg/dL Normal: ..... 40-60 mg/dL Desirable: ... > 60 mg/dL *The National Cholesterol Education Program(NCEP) 111 Reference Guidelines*: Optimal:........... <100 mg/dL Near Optimal....... 100-129 mg/dL Borderline High.... 130-159 mg/dL High............... 160-189 mg/dL Very High.......... >=190 mg/dL * Source: National Cholesterol Education Program (NCEP) 112 To discuss at visit scheduled 07/31/14 113 Note: Persistent reduction for 3 months or more in an eGFR <60 mL/min/ 1.73 m2 defines CKD. Patients with eGFR values >/=60 mL/min/1.73 m2 may also have CKD if evidence of persistent proteinuria is present. The original MDRD equation for estimated GFR is not valid for patients less than 18 years of age. Additional information may be found at www.[email or web address]. 114 Elevated levels of HbA1c suggest the need for more aggressive treatment of glycemia. The [place] [employer] recommends that a primary goal of therapy should be a HbA1c of <7% and that physicians should re-evaluate the treatment regimen in patients with HbA1c values consistently >8%. 115 Reference Guidelines*: Desirable: ........... < 200 mg/dL Borderline High : ..... 200-239 mg/dL High: ................ >=240 mg/dL * The National Cholesterol Education Program (NCEP) 116 Reference Guidelines*: Low HDL: ..... < 40 mg/dL Normal: ..... 40-60 mg/dL Desirable: ... > 60 mg/dL *The National Cholesterol Education Program(NCEP) 117 Reference Guidelines*: Optimal:........... <100 mg/dL Near Optimal....... 100-129 mg/dL Borderline High.... 130-159 mg/dL High............... 160-189 mg/dL Very High.......... >=190 mg/dL * Source: National Cholesterol Education Program (NCEP) 118 Reference Guidelines*: Normal: ............. < 150 mg/dL Borderline High: .... 150-199 mg/dL High: ............... 200-499 mg/dL Very High: .......... > 500 mg/dL * Source: National Cholesterol Education Program (NCEP) 119 NO UA RECIEVED. PER ALO OFFICE AWARE 120 Antibodies to HCV not detected; does not exclude early acute HCV infection. Procedures Date Code Description Status 04/23/2018 16107 EKG-Tracing And Report Completed 08/08/2017 [id number] Diabetic Foot Exam Completed 06/29/2017 10729 Stress Test Interpre And Report Only Completed 06/29/2017 61313 Stress Test Physician Super Only Completed 06/29/2017 10930 Myocardial Imaging Tomographic Multiple Study AT Rest Completed Or Stress 05/30/2017 88843 EKG-Tracing And Report Completed 01/02/2017 50855 Arthroscopy knee w/menisectomy med & lat including Completed meniscal shavi 11/27/2016 08267 Radiology, Shoulder: Two Views (Sso) Completed 09/04/2016 49718 Radiology, Distal Femur--Knee 1 Or 2 Views Completed 09/04/2016 64636 Radiology, Shoulder: Two Views (Sso) Completed 05/26/2016 39512 Radiology, Shoulder: Two Views (Sso) Completed 02/10/2016 74798 Repair of ruptured musculotendinous (rotator cuff) Completed open 02/10/2016 04299 Claviculectomy;partial open Completed 12/31/2015 60795 Radiology, Shoulder: Two Views (Sso) Completed 12/30/2015 92831 EKG-Tracing And Report Completed 12/07/2015 65019 EKG-Tracing And Report Completed 11/18/2015 86230 Stress Test Interpre And Report Only Completed 11/18/2015 64588 Stress Test Physician Super Only Completed 11/18/2015 82394 Stress Test Physician Super Only Completed 11/18/2015 62900 Myocardial Imaging Tomographic Multiple Study AT Rest Completed Or Stress 11/08/2015 01445 EKG-Tracing And Report Completed 06/30/2015 93218 Colonoscopy With Biopsy Forceps Completed 06/30/2015 [id number] Colonoscopy Completed 06/15/2015 90967 Echocardiogram Complete Completed Encounters Type Date Location Provider Dx Diagnosis Office Visit 09/19/2018 Family Medicine Tam Rowland MD J06.9 Acute upper 11:30a [address] respiratory infection, unspecified Office Visit 07/30/2018 Family Medicine Tam Rowland MD R39.12 Poor urinary stream 10:45a [place] E11.9 Type 2 diabetes mellitus without complications I10 Essential (primary) hypertension E78.2 Mixed hyperlipidemia Office Visit 07/18/2018 10:45a Family Medicine Tam Rowland, J06.9 Acute upper Bogdan TOLLIVER MD respiratory infection, unspecified Office Visit 05/16/2018 1:45p Family Medicine Tam Rowland, H66.92 Otitis media, Bogdan TOLLIVER MD unspecified, left ear Office Visit 04/23/2018 2:00p Cardiology Office Curtis Silva, I25.10 Athscl heart disease of [place] coronary artery w/o ang pctrs I10 Essential (primary) hypertension E78.2 Mixed hyperlipidemia Office Visit 04/18/2018 9:30a Family Medicine Tam Rowland, E11.9 Type 2 diabetes Bogdan TOLLIVER MD mellitus without complications E78.5 Hyperlipidemia, unspecified I10 Essential (primary) hypertension Z23 Encounter for immunization Office Visit 02/28/2018 1:00p Urology Sheila F52.21 Male erectile Emma Nguyen disorder Office Visit 02/27/2018 1:00p Family Medicine Denae Polo, J06.9 Acute upper [place] [facility] [facility] respiratory infection, unspecified E11.9 Type 2 diabetes mellitus without complications Office Visit 01/31/2018 1:15p Family Medicine Sugey Rosales, E11.9 Type 2 diabetes Bogdan TOLLIVER M.D. mellitus without complications I10 Essential (primary) hypertension E78.5 Hyperlipidemia, unspecified F33.41 Major depressive disorder, recurrent, in partial remission Office Visit 11/23/2017 10:30a Urology Sheila F52.21 Male erectile Emma Nguyen disorder Office Visit 10/31/2017 1:15p Family Medicine Sugey Rosales, E11.9 Type 2 diabetes Bogdan TOLLIVER M.D. mellitus without complications I10 Essential (primary) hypertension E78.5 Hyperlipidemia, unspecified F33.41 Major depressive disorder, recurrent, in partial remission M54.5 Low back pain F52.21 Male erectile disorder Office Visit 08/03/2017 1:00p Family Sugey Peraza, Z00.01 Encounter for Bogdan TOLLIVER M.D. general adult medical exam w abnormal findings Z12.5 Encounter for screening for malignant neoplasm of prostate Z12.2 Encntr screen for malignant neoplasm of respiratory organs E11.9 Type 2 diabetes mellitus without complications F33.41 Major depressive disorder, recurrent, in partial remission M54.5 Low back pain J45.30 Mild persistent asthma, uncomplicated Office Visit 05/30/2017 2:00p Cardiology Office Katie, R07.9 Chest pain, Marlyss B., PA unspecified I25.10 Athscl heart disease of [place] coronary artery w/o ang pctrs I10 Essential (primary) hypertension E78.5 Hyperlipidemia, unspecified Office Visit 05/03/2017 2:00p Family Medicine Sugey Rosales, E11.9 Type 2 diabetes Bogdan TOLLIVER M.D. mellitus without complications I10 Essential (primary) hypertension E78.5 Hyperlipidemia, unspecified Office Visit 04/17/2017 1:10p Cardiology Office Curtis Silva, I25.10 Athscl heart MD disease of [place] coronary artery w/o ang pctrs I10 Essential (primary) hypertension E78.5 Hyperlipidemia, unspecified Office Visit 03/20/2017 1:30p Family Medicine Sugey Rosales, J20.9 Acute bronchitis, Bogdan TOLLIVER M.D. unspecified Z23 Encounter for immunization Office Visit 01/31/2017 2:00p Family Medicine Sugey Rosales, E11.9 Type 2 diabetes Bogdan TOLLIVER M.D. mellitus without complications I10 Essential (primary) hypertension E78.5 Hyperlipidemia, unspecified I71.2 Thoracic aortic aneurysm, without rupture F33.41 Major depressive disorder, recurrent, in partial remission G44.019 Episodic cluster headache, not intractable Office Visit 12/27/2016 Ismael Latham M25.511 Pain in right 10:15a Office Emma Toth shoulder Office Visit 12/11/2016 Ismael Latham M25.511 Pain in right 11:15a Office Emma Toth shoulder Office Visit 11/27/2016 Ismael Latham M25.511 Pain in right 9:15a Office Emma Toth shoulder Office Visit 10/31/2016 Family Medicine Sugey Rosales, I10 Essential 2:00p Bogdan TOLLIVER M.D. (primary) hypertension E11.9 Type 2 diabetes mellitus without complications E78.5 Hyperlipidemia, unspecified K21.9 Gastro-esophageal reflux disease without esophagitis M17.0 Bilateral primary osteoarthritis of knee Office Visit 10/11/2016 2:50p Cardiology Office Curtis Silva, I25.10 Hermelinda ambrose MD disease of [place] coronary artery w/o ang pctrs I10 Essential (primary) hypertension Office Visit 09/13/2016 Orthopaedic Yeison M65.4 Radial styloid 2:30p Office Emma Toth tenosynovitis [de Quervain] Office Visit 09/04/2016 Orthopaedic Yeison M75.122 Complete 3:15p Office Emma Toth rotatr-cuff tear/ruptr of left shoulder, not trauma M25.562 Pain in left knee M25.512 Pain in left shoulder M17.12 Unilateral primary osteoarthritis, left knee Office Visit 08/31/2016 Family Ty J45.30 Mild persistent 1:30p Medicine [place] [facility] asthma, RD uncomplicated J09.x2 Flu due to ident novel influenza A virus w oth resp manifest Office Visit 08/02/2016 3:00p Family Medicine Sugey Rosales, E11.9 Type 2 diabetes Bogdan TOLLIVER M.DKane mellitus without complications E78.5 Hyperlipidemia, unspecified J45.30 Mild persistent asthma, uncomplicated K21.9 Gastro-esophageal reflux disease without esophagitis Office Visit 07/25/2016 10:20a Cardiology Office Curtis Silva, I25.10 Hermelinda ambrose MD disease of [place] coronary artery w/o ang pctrs I10 Essential (primary) hypertension E78.5 Hyperlipidemia, unspecified E66.09 Other obesity due to excess calories R53.83 Other fatigue Office Visit 05/26/2016 9:30a Orthopaedic Office Navneet Latham M25.512 Pain in left M.D. shoulder M75.122 Complete rotatr-cuff tear/ruptr of left shoulder, not trauma Office Visit 05/02/2016 1:00p Family Medicine Sugey Rosales, I10 Essential (primary) Bogdan TOLLIVER M.D. hypertension E11.9 Type 2 diabetes mellitus without complications E78.5 Hyperlipidemia, unspecified J45.30 Mild persistent asthma, uncomplicated F33.41 Major depressive disorder, recurrent, in partial remission Office Visit 03/22/2016 8:20a Cardiology Office Curtis Silva, I25.10 [facility] MD disease of [place] coronary artery w/o ang pctrs I10 Essential (primary) hypertension E78.5 Hyperlipidemia, unspecified E66.09 Other obesity due to excess calories Office Visit 01/28/2016 11:00a Family Medicine Sugey Rosales, E11.9 Type 2 diabetes Bogdan TOLLIVER M.D. mellitus without complications I10 Essential (primary) hypertension E78.5 Hyperlipidemia, unspecified J02.9 Acute pharyngitis, unspecified Office Visit 01/20/2016 Family Medicine Demetris J02.9 Acute pharyngitis, 3:00p [place] Harris MD unspecified Office Visit 01/17/2016 Orthopaedic Yeison M25.512 Pain in left 2:00p Office Emma Toth shoulder M75.122 Complete rotatr-cuff tear/ruptr of left shoulder, not trauma Office Visit 12/31/2015 9:45a Orthopaedic Office Navneet Latham M25.512 Pain in left M.D. shoulder Office Visit 12/30/2015 9:30a Cardiology Office Curtis Silva MD I25.10 [facility] disease of [place] coronary artery w/o ang pctrs R07.9 Chest pain, unspecified E78.5 Hyperlipidemia, unspecified I10 Essential (primary) hypertension Office Visit 12/28/2015 Family Amanda Sutton E11.9 Type 2 diabetes 3:00p Bogdan Davis M.D. mellitus without complications Office Visit 12/07/2015 Cardiology Curtis Silva MD R07.9 Chest pain, 1:30p Office unspecified R06.02 Shortness of breath R94.30 Abnormal result of cardiovascular function study, unsp I10 Essential (primary) hypertension E78.5 Hyperlipidemia, unspecified Office Visit 11/29/2015 11:30a Family Sutton E11.9 Type 2 diabetes Medicine Bogdan Davis M.D. mellitus without RD complications Office Visit 11/08/2015 2:00p Family Sutton E11.9 Type 2 diabetes Medicine Bogdan Davis M.D. mellitus without RD complications I10 Essential (primary) hypertension R07.9 Chest pain, unspecified Office Visit 08/09/2015 2:00p Family Sutton E11.9 Type 2 diabetes Medicine Bogdan Davis M.D. mellitus without RD complications I10 Essential (primary) hypertension E78.5 Hyperlipidemia, unspecified Office Visit 07/20/2015 2:30p Tye Pena MD K58.9 Irritable bowel syndrome without diarrhea K21.9 Gastro-esophageal reflux disease without esophagitis K20.0 Eosinophilic esophagitis Z12.11 Encounter for screening for malignant neoplasm of colon Office Visit 06/08/2015 1:00p Tye Pena MD R10.9 Unspecified abdominal pain K21.9 Gastro-esophageal reflux disease without esophagitis K20.0 Eosinophilic esophagitis Office Visit 05/12/2015 2:00p [facility] Amanda Sutton R13.10 Dysphagia, [place] SHAREE Davis M.D. unspecified M54.5 Low back pain Office Visit 04/06/2015 4:30p Family Sutton E11.9 Type 2 diabetes Medicine Bogdan Davis M.D. mellitus without RD complications I10 Essential (primary) hypertension E78.5 Hyperlipidemia, unspecified R35.1 Nocturia M54.9 Dorsalgia, unspecified F17.210 Nicotine dependence, cigarettes, uncomplicated Z23 Encounter for immunization Office Visit 02/04/2015 10:15a Orthopaedic Office Matt Mccormack 846.0 Sprains & Strains E., DO Sacroiliac Region Lumbosacral (Joint)(Liga Office Visit 01/01/2015 10:30a Orthopaedic Office Matt Mccormack 846.0 Sprains & Strains E., DO Sacroiliac Region Lumbosacral (Joint)(Liga Office Visit 12/08/2014 2:15p Orthopaedic Office Simin 214.8 Lipoma Kayla Gorman MD Specified Sites 724.5 Backache Unspec Office Visit 11/23/2014 4:00p Family Amanda Sutotn, 250.00 Diabetes [place] SHAREE Davis M.D. 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 Specified Sites 250.00 Diabetes Mellitus W/O Compl Type II Or Unspec Controlled Office Visit 10/05/2014 Orthopaedic Evette, 717.7 Chondromalacia Of 1:45p Office Anusha SKane, [facility] 719.46 Pain Joint Lower Leg Office Visit 09/21/2014 [facility] Lesley, 715.98 Osteoarthrosis 4:[facility] Unspec Genlzd Or RD Localzd Other Spec Sites 389.9 Hearing Loss Unspec 305.1 Tobacco Use Disorder 250.00 Diabetes Mellitus W/O Compl Type II Or Unspec Controlled Plan of Treatment Future Appointment(s):11/04/2018 2:00 pm - Tam Rowland MD at [facility]04/23/2019 1:00 pm - Curtis Sivla MD at Cardiology Igjlsn9609/19/2018 - Tam Rowland MDJ06.9 Acute upper respiratory infection, unspecifiedNew Medication:Saline Nasal [place] 0.65 % - 2 sprays intranasal every 2 hours congestion or nasal dryness
[2018-09-30 17:13] VITALS: BP 115/80
== END 2018-09-30 17:27 | disposition home or self-care (01) ==
LOC: UCCORT 16:43
DX: J06.9 Acute upper respiratory infection, unspecified (principal); F17.210 Nicotine dependence, cigarettes, uncomplicated
CPT/HCPCS: 99211; G0463

== ENCOUNTER 2018-11-23 20:09 | Emergency (ER) | payer MEDICARE, MEDICAID ==
--- OUTSIDE RECORDS SUMMARY | 2018-11-23 20:34 | XMS REPORT | Continuity of Care Document ---
:1960 External Reference #:[id number] Author Name Patrick Sosa M.D. Address [address] [place] [address] Care Team Providers Name Role Phone Tam Rowland MD Care Team Information [place] Unavailable Tam Rowland MD Primary Care Physician Unavailable Payers Date Identification Numbers Payment Provider Subscriber Policy Number: [id number] [employer] Charbel Ryan PayID: [id number] [address] [place] [address] Policy Number: [id number] Medicaid Charbel Ryan Group Name: 1 1 [address] PayID: [id number] [place] [address] Expires: 2017 Policy Number: [id number] Medicaid Charbel Ryan PayID: [id number] [address] [place] [address] Problems Active Problems Provider Date Arthritis Susan Sutton M.D. Onset: 09/21/2014 Benign essential hypertension Soren Crawford FNP Onset: 07/17/2014 Type 2 diabetes mellitus Soren Crawford FNP Onset: 07/17/2014 Sleep apnea Susan Sutton M.D. Onset: 01/03/2015 Obesity Tye Del Castillo MD Onset: 06/08/2015 Chronic obstructive lung disease Tye Del Castillo MD Onset: 06/08/2015 Allergic rhinitis Tye Del Castillo MD Onset: 06/08/2015 Depressive disorder Tye Del Castillo MD Onset: 06/08/2015 Gastroesophageal reflux disease Tye Del Castillo MD Onset: 06/08/2015 Irritable bowel syndrome Tye Del Castillo MD Onset: 07/01/2015 Note: colo to TI Bx 2016 Shoulder joint pain Navneet Latham M.D. Onset: 12/31/2015 Full thickness rotator cuff tear Navneet Latham M.D. Onset: 01/17/2016 Hyperlipidemia Sugey Rosales M.D. Onset: 01/28/2016 Knee pain Navneet Latham M.D. Onset: 09/04/2016 Radial styloid tenosynovitis Navneet Latham M.D. Onset: 09/13/2016 Joint ankylosis of the shoulder region Riya Manriquez PA Onset: 12/28/2016 Mild intermittent asthma Kimberly Willson MD Onset: 01/01/2017 Psychogenic impotence Patrick Sosa M.D. Onset: 11/23/2017 Screening for malignant neoplasm of prostate Patrick Sosa M.D. Onset: Resolved Problems Eosinophilic esophagitis Tye Del Castillo MD Onset: 06/08/2015 Resolved: 01/28/2016 Acute pharyngitis Kimberly Willson MD Onset: 01/20/2016 Resolved: 01/28/2016 Family History Date Family Member(s) Observation Comments General Cancer General Heart Disease General Stroke General Diabetes Father Diabetes Father Hypertension Father Gout Mother Diabetes Mother due to UT () Mother Hypertension Mother CAD 39 Mother [...] Start: Unknown Quit 10/05/14 Smoking Status Reviewed: 10/25/18 Quit 10/05/14 Allergies, Adverse Reactions, Alerts Active Allergies Reaction Severity Comments Date NKDA 10/05/2014 Environmental 12/07/2015 Medications Active Medications SIG Qnty Indications Ordering Date Provider Tadalafil take 1 tab once a 10tabs F52.21 Sheila, 10/31/2018 20mg day as needed the Emma Nguyen Tablets day of intercourse. Shingrix intramuscular 1units Z23 Tam Rowland MD 10/08/2018 injection x1 50mcg/0.5ML Suspension Rec SM Aspirin Adult take one tablet by 90tabs Tam Rowland MD 08/18/2018 Low Strength mouth every day 81mg Tablets DR Allergy Shot 1 injection every 2 Sheila, 02/28/2018 weeks Emma Nguyen SM Alcohol Prep Use For Testing 100units Sugey Rosales, 11/06/2017 70% Blood Sugar And Give M.D. Pads Insulin Blood Glucose check blood sugars 1units E11.9 Sugey Rosales, 08/03/2017 Monitoring System fasting in in the M.D. morning dx. e11.9 W/Device Kit Blood Glucose Test test sugars in in 100units E11.9 Tam Rowland MD 2017 the morning e11.9 Strips Ranexa Take One Tablet By 180tabs R07.9 Suman, 05/30/2017 500mg Mouth Twice A Day Stefano Clay M.D., Tablets ER 12HR FACC Basaglar Kwikpen inject 48 units 15units E11.9 Tam Rowland MD 05/03/2017 daily, titrate as 100Unit/ML Solution directed Pen-Inject Ventolin HFA inhale one to two 18units Tam Rowland MD 05/03/2017 puffs by mouth every 108(90Base) mcg/Act 4 to 6 hours as Aerosol needed Unifine Pentips For Insulin 100units Tam Rowland MD 09/25/2016 31G X 5 mm Misc Amlodipine Besylate take one tablet by 90tabs Curtis Silva MD 03/22/2016 mouth every day 5mg Tablets Pen [employer] 08/31" use to inject 100units E11.9 Sugey Rosales, 11/29/2015 insulin M.D. 31G X 5 mm Misc Lancets Super Thin use as needed to 100units Lesley, 11/29/2015 28G check blood sugar Emma Davis Thin 28G Misc Atorvastatin take one tablet by 90tabs E78.5 Kimberly Willson, 04/07/2015 Calcium mouth every day 40mg Tablets Flovent Diskus inhale one puff by 60units Tam Rowland MD mouth twice a day 100mcg/Blist Aerosol Bupropion HCL ER Take One Tablet By 90tabs Sugey Rosales, (XL) Mouth Every Day M.D. 300mg Tablets ER 24HR Lisinopril take one tablet by 90tabs Kimberly Willson, 20mg mouth every day MD Tablets Fluticasone spray 2 sprays in 16gm Tam Rowland MD Propionate each nostril daily 50mcg/Act Suspension Fluoxetine HCL take one capsule by 90caps Tam Rowland MD 20mg mouth every day Capsules Mens Multivitamin 1 po daily Unknown Plus Tablets History Medications Saline Nasal [place] 2 sprays 1units J06.9 Tam Rowland, 09/19/2018 - intranasal every 2 MD 10/08/2018 0.65% Solution hours congestion or nasal dryness Guaifenesin-DM 1 tbsp by mouth ml J06.9 Tam Rowland, 07/18/2018 - twice a day MD 07/30/2018 100-10mg/5ML Syrup congestion Saline Nasal [place] 2 sprays 1units J06.9 Tam Rowland, 07/18/2018 - intranasal every 2 MD 09/19/2018 0.65% Solution hours congestion or nasal dryness Chloraseptic Max 1 lozenge by mouth 60units J06.9 Tam Rowland, 07/18/2018 - Sore Throat every 2 hours as MD 07/30/2018 15-10mg needed Lozenges Sildenafil Citrate take up to 5 pills 14tabs F52.21 Sheila, 11/23/2017 - as need once a day Emma Nguyen 07/30/2018 20mg Tablets 2 hours before intercourse Aspirin Ec Low Dose take one tablet by 90tasejal Willson, 05/29/2017 - mouth every day MD Kimberly 08/18/[address] Azithromycin 1 tab take 2 tabs 6tabs J20.9 Sugey Rosales, 03/20/2017 - 250mg x daily days then M.D. 05/02/2017 Tablets 1 for 4 days Lantus 59u sq at bedtime E11.9 Demetris 01/31/2017 - 100Unit/ML MD Kimberly 05/03/2017 Solution Aspir-Low Take One Tablet By 90tabs Sugey Rosales, 01/09/2017 - 81mg Mouth Every Day M.D. 05/29/[address] Oxycodone HCL 1-2 every 4-6 hour 40tabs Z01.818 Yeison, 12/28/2016 - 5mg as needed pain Emma Toth 08/03/2017 Tablets Lantus Solostar inject 62 units 30ml Demetris, 11/19/2016 - once daily,check MD Kimberly 01/31/2017 100Unit/ML Solution blood sugar every Pen-Inject morning and if over 120,increase insulin by 1 unit per day Basaglar Kwikpen inject 60u SQ in 45ml E11.9 Sugey Rosales, 09/26/2016 - Am and titrate as M.D. 12/28/2016 100Unit/ML Solution indicated Pen-Inject Ventolin Q4H prn For 1units Unknown 08/20/2016 - 0.083% Sob/Wheezing 05/03/2017 Nebulizer Deltasone Every Day 10tabs Unknown 08/20/2016 - 20mg 09/04/2016 Tablets Oxycodone HCL 1 by mouth every 40tabs M75.122 Yeison, 02/02/2016 - 10mg 4-6 hour as needed Emma Toth 03/10/2016 Tablets postop pain Cephalexin 1 tab by mouth 4 40caps Demetris 01/20/2016 - 500mg times a day MD Kimberly 01/29/2016 Capsules Clopidogrel once daily 30tabs R07.9 Curtis Silva, 12/07/2015 - Bisulfate 12/28/2015 75mg Tablets Lantus Solostar A/D to scale 150ml E11.9 Sugey Rosales, 11/29/2015 - M.D. 09/26/2016 100Unit/ML Solution Pen-Inject Alcohol Pads use to test bs and 100units Sugey Rosales, 11/29/2015 - 70% Pads give insulin M.D. 10/08/2018 Freestyle Lite Test test blood sugar 100units E11.9 [place], 11/10/2015 - every in the [facility], 08/03/2017 Strips morning dx. 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 Device Barbara Contour Blood check blood sugar 100units E11.9 [place], 11/08/2015 - Glucose Test Strips 1-2 times a day Susan, 11/10/2015 as needed dx: M.D. Strips e11.9 Glimepiride 1 by mouth every 30tabs [place], 08/10/2015 - 4mg day Susan, 11/29/2015 Tablets M.D. Januvia 1 by mouth every 30tabs [place], 08/10/2015 - 100mg Tablets day [place], 11/29/2015 M.D. Omeprazole 1 by mouth every 90caps K21.9 Sugey Rosales, 07/20/2015 - 10mg day M.D. 09/04/[address] Li-3350/Electrolyte by mouth 1 cup 1units R10.9 Tye Del Castillo, 2014 - s every 10'; drink 07/20/2015 236gm Solution Rec 1/2 of the amount the evening before the procedure and the rest the morning of the procedure Tums by mouth every 2 h 360units K21.9 Tye Del Castillo, 06/08/2015 - 500mg Chewtabs as needed Unknown heartburn Omeprazole 1 by mouth every 90caps K21.9 Tye Del Castillo, 06/08/2015 - 20mg day 07/20/2015 Capsules Major-Prep 3 Times Daily 6units Unknown 05/08/2015 - Hemorrhoidal 06/08/2015 0.25-14-74.9% Ointment Metformin HCL ER Take One Tablet By 60tabs E11.9 Sugey Rosales, 04/07/2015 - Mouth Twice A Day M.D. 08/02/2016 750mg Tablets ER 24HR Proair HFA inhale 2 puffs by 17units I10 Sugey Rosales, 01/04/2015 - mouth every 4 M.D. 10/31/2016 108(90Base) mcg/Act hours as needed Aerosol Simvastatin 1 by mouth every 30tabs E78.5 Lesley, 11/23/2014 - 20mg day Susan, 04/07/2015 Tablets M.D. Viagra one as needed 3tabs 607.84 Lesley, 11/23/2014 - 100mg Tablets Susan, 06/08/2015 M.D. Aspirin 1 by mouth every 30tabs Sugey Rosales, 10/14/2014 - 81mg Tablets day M.D. 01/09/2017 DR Barba Take One Tablet By 60tabs Sugey Rosales, 10/05/2014 - 750mg Mouth Twice A Day M.D. 10/31/2017 Tablets With Food Chantix Continuing 1 tab by mouth 60tabs Lesley, 09/21/2014 - Month Wojciech twice a day MD Susan 04/06/2015 1mg Tablets Acetaminophen Extra 2 tabs every 4 100tabs Lesley, 09/10/2014 - Strength hous as needed for Susan, 10/08/2018 500mg pain or fever MDD M.D. Tablets 8 Meloxicam 1 by mouth every 90tabs Lesley, 07/31/2014 - 15mg day MD Susan 04/06/2015 Tablets Coricidin HBP Cold & Unknown - Flu 10/08/2018 Tablets Loratadine take one tablet by 30tabs Tam Rowland, - 10mg mouth every day 10/08/2018 Tablets Wellbutrin XL 1 by mouth every Unknown - 300mg day 01/31/2018 Tablets ER 24HR Bupropion HCL ER take one pill by Unknown - (SR) mouth in in the 11/27/2016 100mg Tablets ER morning 12HR Fluoxetine HCL 2 by mouth every Unknown - 10mg day Unknown Capsules Albuterol Sulfate Inhale 1 Vial Via Unknown - Nebulizer Every 4 12/28/2016 (2.5mg/3ML) 0.083% Hours as Needed Nebulizer For Shortness Of B Zofran 1tab by mouth q4-6 Unknown - 4mg Tablets hours as needed 05/02/2016 for nausea Allergy Injections Q. weekly Unknown - 12/28/2016 Bupropion HCL 1 tab po once a [place], - 300mg day MD Tyshawn 09/04/2016 Tablets Bupropion HCL Unknown - 50mg 01/28/2016 Tablets Tylenol Extra as needed Unknown - Strength 01/20/2016 500mg Tablets Lantus per sliding scale Unknown - 100Unit/ML 01/20/2016 Solution Doxycycline Hyclate Neftaly [place]uero[place], - 11/29/2015 100mg Tablets Nasal Relief Nasal wash once Unknown - 0.05% daily 10/08/2018 Solution Aerospan every 12 hours Unknown - 80mcg/Act Unknown Aerosol Nasal Allergy 24 qd Unknown - Hour 09/04/2016 55mcg/Act Aerosol Flovent Diskus daily Unknown - 09/04/2016 100mcg/Blist Aerosol Bupropion HCL 1 PO bid Jesus, - 75mg MD Tyshawn 01/17/2016 Tablets Fluticasone 2 sprays 16gm Lesley, - Propionate intranasal every Susan, 07/20/2015 50mcg/Act day M.D. Suspension Ventolin HFA 2 puffs every 4 8gm Lesley, - hours as needed Susan, 01/04/2015 108mcg/Act Aerosol M.D. Aspirin Adult Low 1 by mouth every 30tabs Lesley, - Strength day MD Susan 10/14/[address] Coulter Unknown - 15mg 10/05/2014 Tablets Glipizide 1 by mouth every 30tabs E11.9 Lesley, - 5mg Tablets day Susan, 08/10/2015 M.D. Lisinopril 1 by mouth every 30tabs I10 Sugey Rosales, - 20mg day M.D. 09/04/2016 Tablets Immunizations CPT Code Status Date Vaccine Lot # [id number] Given 10/08/2018 Tdap injection [id number] 85985 Given 04/18/2018 Influenza Virus Vaccine, Quadrivalent, 36 Mos+, [id number] 58475 Given 03/20/2017 Influenza Virus Vaccine Quadrivalent Iiv4 Split [id number] Preser Free Id Q2038 Given 03/27/2016 Influenza Vaccine (Fluzone) Age 3 And Older [id number] Q2038 Given 04/06/2015 Influenza Vaccine (Fluzone) Age 3 And Older [id number] 69210 Given 04/06/2015 Pneumococcal Conjugate Vaccine 13 Valent For [id number] Intramuscular Use 45840 Given 07/17/2014 flu vaccination Vital Signs Date Vital Result Comment 10/31/2018 3:19pm BP Systolic 131 mmHg BP Diastolic 87 mmHg Body Temperature 96.9 F Heart Rate 75 /min Respiratory Rate 17 /min Height 65 inches 5'5" Weight 187.38 lb BMI (Body Mass Index) 31.2 kg/m2 BSA (Body Surface Area) 1.92 m2 [place] body weight in kilograms 62 kg O2 % BldC Oximetry 98 % Pain Level 0 10/08/2018 3:19pm BP Systolic 128 mmHg BP Diastolic 78 mmHg Heart Rate 85 /min Respiratory Rate 18 /min Height 65 inches 5'5" Weight 188.25 lb BMI (Body Mass Index) 31.3 kg/m2 BSA (Body Surface Area) 1.93 m2 [place] body weight in kilograms 62 kg O2 % BldC Oximetry 96 % Ra 09/19/2018 11:21am BP Systolic 118 mmHg BP Diastolic 82 mmHg Body Temperature 97.0 F Heart Rate 70 /min Respiratory Rate 18 /min Height 65 inches 5'5" Weight 188.00 lb BMI (Body Mass Index) 31.3 kg/m2 BSA (Body Surface Area) 1.93 m2 [place] body weight in kilograms 62 kg O2 % BldC Oximetry 95 % Ra 07/30/2018 10:30am BP Systolic 128 mmHg BP Diastolic 82 mmHg Heart Rate 80 /min Respiratory Rate 18 /min Height 65 inches 5'5" Weight 192.38 lb BMI (Body Mass Index) 32.0 kg/m2 BSA (Body Surface Area) 1.95 m2 [place] body weight in kilograms 62 kg O2 % BldC Oximetry 96 % Ra 07/18/2018 10:26am BP Systolic 120 mmHg BP Diastolic 78 mmHg Body Temperature 97.2 F Heart Rate 72 /min Respiratory Rate 18 /min Height 65 inches 5'5" Weight 193.00 lb BMI (Body Mass Index) 32.1 kg/m2 BSA (Body Surface Area) 1.95 m2 [place] body weight in kilograms 62 kg O2 % BldC Oximetry 97 % Ra 05/16/2018 1:48pm BP Systolic 110 mmHg BP Diastolic 70 mmHg Body Temperature 97.0 F Heart Rate 77 /min Respiratory Rate 20 /min Height 65 inches 5'5" Weight 192.00 lb BMI (Body Mass Index) 31.9 kg/m2 BSA (Body Surface Area) 1.94 m2 [place] body weight in kilograms 62 kg O2 % BldC Oximetry 95 % 04/23/2018 2:11pm BP Systolic Sitting Left Arm 120 mmHg BP Diastolic Sitting Left Arm 70 mmHg Heart Rate 79 /min Respiratory Rate 18 /min Height 65 inches 5'5" Weight 190.00 lb BMI (Body Mass Index) 31.6 kg/m2 BSA (Body Surface Area) 1.94 m2 [place] body weight in kilograms 62 kg O2 [...] kg/m2 BSA (Body Surface Area) 1.95 m2 [place] body weight in kilograms 63 kg O2 % BldC Oximetry 97 % Pain Level 0 02/27/2018 12:57pm BP Systolic 104 mmHg BP Diastolic 62 mmHg Body Temperature 97.0 F Heart Rate 84 /min Respiratory Rate 20 /min Height 65.6 inches 5'5.60" Weight 189.00 lb BMI (Body Mass Index) 30.9 kg/m2 BSA (Body Surface Area) 1.94 m2 [place] body weight in kilograms 63 kg O2 % BldC Oximetry 94 % 01/31/2018 1:12pm BP Systolic Sitting Left Arm 120 mmHg BP Diastolic Sitting Left Arm 76 mmHg Body Temperature 97.2 F Heart Rate 72 /min Height 65.6 inches 5'5.60" Weight 192.12 lb BMI (Body Mass Index) 31.4 kg/m2 BSA (Body Surface Area) 1.96 m2 [place] body weight in kilograms 63 kg 11/23/2017 10:29am BP Systolic Sitting Left Arm 118 mmHg BP Diastolic Sitting Left Arm 76 mmHg Body Temperature 97.4 F Height 65.6 inches 5'5.60" Weight 195.00 lb BMI (Body Mass Index) 31.9 kg/m2 BSA (Body Surface Area) 1.97 m2 [place] body weight in kilograms 63 kg 10/31/2017 1:20pm BP Systolic Sitting Left Arm 124 mmHg BP Diastolic Sitting Left Arm 76 mmHg Height 65.6 inches 5'5.60" Weight 195.38 lb BMI (Body Mass Index) 31.9 kg/m2 BSA (Body Surface Area) 1.97 m2 [place] body weight in kilograms 63 kg 08/03/2017 12:47pm BP Systolic 118 mmHg BP Diastolic 72 mmHg Heart Rate 82 /min Height 65.6 inches 5'5.60" Weight 200.00 lb BMI (Body Mass Index) 32.7 kg/m2 BSA (Body Surface Area) 1.99 m2 [place] body weight in kilograms 63 kg O2 % BldC Oximetry 97 % 05/30/2017 2:18pm BP Systolic Sitting Right Arm 120 mmHg BP Diastolic Sitting Right Arm 82 mmHg Heart Rate 79 /min Respiratory Rate 18 /min Height 65.6 inches 5'5.60" Weight 199.00 lb BMI (Body Mass Index) 32.5 kg/m2 BSA (Body Surface Area) 1.99 m2 [place] body weight in kilograms 63 kg 05/03/2017 1:56pm BP Systolic Sitting Left Arm 118 mmHg BP Diastolic Sitting Left Arm 78 mmHg Height 65.6 inches 5'5.60" Weight 204.38 lb BMI (Body Mass Index) 33.4 kg/m2 BSA (Body Surface Area) 2.01 m2 [place] body weight in kilograms 63 kg 04/17/2017 1:07pm BP Systolic Sitting Left Arm 110 mmHg BP Diastolic Sitting Left Arm 74 mmHg Heart Rate 84 /min Respiratory Rate 16 /min Height 65.6 inches 5'5.60" Weight 202.00 lb BMI (Body Mass Index) 33.0 kg/m2 BSA (Body Surface Area) 2.00 m2 [place] body weight in kilograms 63 kg 03/20/2017 1:37pm BP Systolic Sitting Left Arm 136 mmHg BP Diastolic Sitting Left Arm 84 mmHg Body Temperature 96.8 F Height 65.6 inches 5'5.60" Weight 203.00 lb BMI (Body Mass Index) 33.2 kg/m2 BSA (Body Surface Area) 2.00 m2 [place] body weight in kilograms 63 kg 01/31/2017 1:51pm BP Systolic Sitting Left Arm 148 mmHg BP Diastolic Sitting Left Arm 98 mmHg Height 65.6 inches 5'5.60" Weight 198.25 lb BMI (Body Mass Index) 32.4 kg/m2 BSA (Body Surface Area) 1.98 m2 [place] body weight in kilograms 63 kg 01/01/2017 1:12pm BP Systolic 102 mmHg BP Diastolic 64 mmHg Heart Rate 86 /min Height 65.5 inches 5'5.50" Weight 200.00 lb BMI (Body Mass Index) 32.8 kg/m2 BSA (Body Surface Area) 1.99 m2 [place] body weight in kilograms 63 kg 12/28/2016 1:22pm BP Systolic Sitting Right Arm 128 mmHg BP Diastolic Sitting Right Arm 81 mmHg Heart Rate 76 /min Height 65.5 inches 5'5.50" Weight 201.00 lb BMI (Body Mass Index) 32.9 kg/m2 BSA (Body Surface Area) 1.99 m2 [place] body weight in kilograms 63 kg 11/27/2016 9:45am BP Systolic Sitting Right Arm 124 mmHg BP Diastolic Sitting Right Arm 82 mmHg Heart Rate 77 /min Height 66 inches 5'6" Weight 201.00 lb BMI (Body Mass Index) 32.4 kg/m2 BSA (Body Surface Area) 2.00 m2 [place] body weight in kilograms 64 kg 10/31/2016 2:12pm BP Systolic Sitting Left Arm 142 mmHg BP Diastolic Sitting Left Arm 78 mmHg Height 65 inches 5'5" Weight 200.00 lb BMI (Body Mass Index) 33.3 kg/m2 BSA (Body Surface Area) 1.98 m2 [place] body weight in kilograms 62 kg 10/11/2016 [...] kg/m2 BSA (Body Surface Area) 1.98 m2 [place] body weight in kilograms 62 kg 08/20/2016 [...] kg/m2 BSA (Body Surface Area) 2.00 m2 [place] body weight in kilograms 62 kg 07/25/2016 10:49am BP Systolic Sitting Left Arm 108 mmHg BP Diastolic Sitting Left Arm 72 mmHg Heart Rate 79 /min Respiratory Rate 18 /min Height 65 inches 5'5" Weight 203.00 lb BMI (Body Mass Index) 33.8 kg/m2 BSA (Body Surface Area) 1.99 m2 [place] body weight in kilograms 62 kg O2 % BldC Oximetry 97 % 05/02/2016 1:11pm BP Systolic 130 mmHg BP Diastolic 78 mmHg Height 65 inches 5'5" Weight 199.38 lb BMI (Body Mass Index) 33.2 kg/m2 BSA (Body Surface Area) 1.98 m2 [place] body weight in kilograms 62 kg 03/22/2016 [...] kg/m2 BSA (Body Surface Area) 1.97 m2 [place] body weight in kilograms 62 kg 01/28/2016 [...] kg/m2 BSA (Body Surface Area) 1.97 m2 [place] body weight in kilograms 63 kg 12/30/2015 9:44am BP Systolic Sitting Right Arm 158 mmHg BP Diastolic Sitting Right Arm 100 mmHg Heart Rate 73 /min Height 65 inches 5'5" Weight 197.00 lb BMI (Body Mass Index) 32.8 kg/m2 BSA (Body Surface Area) 1.97 m2 [place] body weight in kilograms 62 kg 12/28/2015 2:24pm BP Systolic Sitting Left Arm 122 mmHg BP Diastolic Sitting Left Arm 74 mmHg Body Temperature 98.1 F Heart Rate 76 /min Respiratory Rate 18 /min Height 65.5 inches 5'5.50" Weight 193.00 lb BMI (Body Mass Index) 31.6 kg/m2 BSA (Body Surface Area) 1.96 m2 [place] body weight in kilograms 63 kg 12/07/2015 1:15pm BP Systolic 126 mmHg BP Diastolic 82 mmHg Heart Rate 80 /min Height 65.5 inches 5'5.50" Weight 193.00 lb BMI (Body Mass Index) 31.6 kg/m2 BSA (Body Surface Area) 1.96 m2 [place] body weight in kilograms 63 kg 11/29/2015 10:41am BP Systolic Sitting Resting Right Arm 126 mmHg BP Diastolic Sitting Resting Right Arm 78 mmHg Heart Rate 72 /min Respiratory Rate 18 /min Height 65 inches 5'5" Weight 196.00 lb BMI (Body Mass Index) 32.6 kg/m2 BSA (Body Surface Area) 1.96 m2 [place] body weight in kilograms 62 kg 11/08/2015 [...] Date Facility Test Result H/L Range Note Laboratory test 11/01/19 [facility] Prostate Specific <pending> finding [address] [place] [address] [phone] Glycohemoglobin A[facility] Glycohemoglobin 6.3 % N 4.2 -6.3 1, [address] (A1c) [place] [address] [phone] eAG 134 mg/dL Glycohemoglobin A1c 07/30/[address] Glycohemoglobin 6.1 % N 4.2-6.[address] (A1c) [place] [address] [phone] eAG 128 mg/dL LDL Cholesterol Profile [facility]/30/[address] [facility] [address] Cholesterol 133 mg/dL <[address] [place] [address] [phone] Triglycerides 121 mg/dL <150 5 HDL Cholesterol 48 mg/dL >40 6 LDL-Cholesterol 61 mg/dL < 100 7 Basic Metabolic Panel 07/30/[address] Glucose 156 mg/dL High 74-106 4077 [place], [place] [id number] [phone] BUN 13 mg/dL N 7-18 Creatinine 1.0 mg/dL N 0.6-1.3 Glom Filtration Rate, Estimate >60 mL/min >60 If >60 mL/min >60 8 BUN/Creat 13.0 ratio Sodium 137 mmol/L N 136-145 Potassium 4.0 mmol/L N 3.5-5.1 Chloride 104 mmol/L N 98-107 Carbon Dioxide 27 mmol/L N 21-32 Anion Gap 6 mEq/L Low 8-16 Calcium 8.9 mg/dL N 8.5-10.1 Glycohemoglobin 04/18/[address] Glycohemoglobin 6.8 % High 4.2-6.3 [address] [place] [address] (A1c) [place], [place] [id number] [phone] eAG 148 mg/dL Microalbumin,Random 04/18/[address] Microalbumin,Urine < 5.0 < 20.[address] [place] [address] mg/[place] [address] [phone] Urine Dipstick 04/18/2018 [facility] Ua Color yellow Yellow Ua Clarity clear Clear Ua Leuko negative Negative Ua Nitrite negaitve Negative Ua Urobilinogen 3.5 umol/L High 0.2 - 1.0 E.U./dL Ua Protein negative Negative Ua PH 6.0 Low 6.5-7.5 Ua Blood negative Negative Ua Specific [place] 1.015 1.010-1.030 Ua Ketones negative Negative Ua Bilirubin negative Negative Ua Glucose negative Negative Glycohemoglobin 01/31/[address] Glycohemoglobin 6.6 % High 4.2-6.3 10 A1c [address] (A1c) [place] [address] [phone] eAG 143 mg/dL Basic Metabolic Panel 01/31/[address] Glucose 101 mg/dL N 74- 106 [address] [place] [address] [phone] BUN 9 mg/dL N 7-18 Creatinine 0.9 mg/dL N 0.6-1.3 Glom Filtration Rate, Estimate >60 mL/min >60 If >60 mL/min >60 11 BUN/Creat 10.0 ratio Sodium 142 mmol/L N 136-145 Potassium 4.1 mmol/L N 3.5-5.1 Chloride 108 mmol/L High 98-107 Carbon Dioxide 26 mmol/L N 21-32 Anion Gap 8 mEq/L N 8-16 Calcium 8.8 mg/dL N 8.5-10.1 LDL Cholesterol Profile 01/31/[address] [facility] [address] Cholesterol 99 mg/dL <[address] [place] [address] [phone] Triglycerides 98 mg/dL <150 13 HDL Cholesterol 41 mg/dL >40 14 LDL-Cholesterol 38 mg/dL < 100 15 Glycohemoglobin 10/31/2017 [facility] Glycohemoglobin 7.7 % High 4.2-6.3 16, A1c [address] (A1c) 17 [place], [place] [id number] [phone] eAG 174 mg/dL Microalb/Creat 10/31/2017 [facility] Microalbumin,Urine < 5.0 < 20.0 Ratio,Random [address] mg/L [place], [place] [id number] [phone] Microalbumin/Creatinine Ratio TNP ug/mgCrt < 30.0 18 Urine Creatinine Conc 75 mg/dL Basic Metabolic Panel 10/31/2017 [facility] Glucose 172 mg/dL High 74-[address] [place], [place] [id number] [phone] BUN 12 mg/dL N 7-18 Creatinine 0.9 mg/dL N 0.6-1.3 Glom Filtration Rate, Estimate >60 mL/min >60 If >60 mL/min >60 19 BUN/Creat 13.3 ratio Sodium 138 mmol/L N 136-145 Potassium 4.3 mmol/L N 3.5-5.1 Chloride 105 mmol/L N 98-107 Carbon Dioxide 27 mmol/L N 21-32 Anion Gap 6 mEq/L Low 8-16 Calcium 8.8 mg/dL N 8.5-10.1 Laboratory test 08/12/2017 [facility] Troponin-I < 0.015 20, [address] ng/mL [place], [place] [id number] [phone] CBS W/Automated 08/12/2017 [facility] White Blood 6.1 K/uL N 3.4-[address] Count 0.5 [place] [address] [phone] Red Blood Count 4.92 M/uL N 4.20-5.80 [...] 33.0-73.0 Lymph % 30.7 % N 20.0-42.0 [place] % 13.4 % High 0.0-10.0 Eo% 5.1 % N 0.0-6.6 Bas% 0.7 % N 0.0-1.1 Neut# 3.06 K/uL N 1.8-7.0 Lymph # 1.87 K/uL N 1.0-4.0 [place] # 0.82 K/uL High 0.0-0.8 Eos # 0.31 K/uL N 0.0-0.5 Baso # 0.04 K/uL N 0.0-0.1 Comprehensive Metabolic 08/12/2017 [facility] Glucose 128 mg/dL High 74-[address] [place] [address] [phone] BUN 16 mg/dL N 7-18 Creatinine 0.9 mg/dL N 0.6-1.3 Glom Filtration Rate, Estimate >60 mL/min >60 If >60 mL/min >60 22 BUN/Creat 17.7 ratio Sodium 137 mmol/L N [...] U/L Low 45-117 Laboratory test finding 08/12/2017 [facility] CK 141 U/L N 39-[address] [place], [place] [id number] [phone] Troponin-I < 0.015 ng/mL 23 Prostate 08/03/2017 [facility] PSA ([place] 0.56 ng/mL < 4.0 24, 25 Specific Antigen [address] Loci) [place], [place] [id number] [phone] Reflex add FT3? Y Reflex add FT4? Y Glycohemoglobin 08/03/2017 [facility] Glycohemoglobin 6.9 % High 4.2-6.[address] (A1c) [place], [place] [id number] [phone] eAG 151 mg/dL LDL Cholesterol Profile 08/03/2017 [facility] Cholesterol 154 mg/dL <[address] [place], [place] [id number] [phone] Triglycerides 143 mg/dL <150 28 HDL Cholesterol 52 mg/dL >40 29 LDL-Cholesterol 73 mg/dL < 100 30 Reflex add FT3? Y Reflex add FT4? Y TSH Reflex FT4 08/03/2017 [facility] Thyroid Stim 1.73 uIU/mL N 0.30-4.20 And/Or FT3 [address] Hormone [place], [place] [id number] [phone] Reflex add FT3? Y Reflex add FT4? Y Basic Metabolic Panel 08/03/2017 [facility] Glucose 213 mg/dL High 74-[address] [place], [place] [address] [phone] BUN 14 mg/dL N 7-18 Creatinine 1.1 mg/dL N 0.6-1.3 Glom Filtration Rate, Estimate >60 mL/min >60 If >60 mL/min >60 31 BUN/Creat 12.7 ratio Sodium 138 mmol/L N 136-145 Potassium 4.1 mmol/L N 3.5-5.1 Chloride 104 mmol/L N 98-107 Carbon Dioxide 26 mmol/L N 21-32 Anion Gap 8 mEq/L N 8-16 Calcium 9.0 mg/dL N 8.5-10.1 Reflex add FT3? Y Reflex add FT4? Y LDL Cholesterol 06/04/2017 [facility] Cholesterol 140 mg/dL <200 32, 33 Profile [address] [place] [address] [phone] Triglycerides 125 mg/dL <150 34 HDL Cholesterol 47 mg/dL >40 35 LDL-Cholesterol 68 mg/dL < 100 36 Liver Function Tests 06/04/2017 [facility] Total Protein 7.1 g/dL N 6.4-8.2 [address] [place] [address] [phone] Albumin 3.8 g/dL N 3.4-5.0 Globulin 3.3 g/dL N 1.9-4.3 Alb/Glob 1.2 ratio Bilirubin,Total 0.4 mg/dL N 0.2-1.0 Bilirubin,Direct < 0.1 mg/dL N 0.0-0.2 Bilirubin,Indirect 0.3 mg/dL N 0.0-0.9 Sgot/Ast 24 U/L N 15-37 SGPT/Alt 42 U/L N 12-78 Alkaline Phosphatase 34 U/L Low 45-117 Glycohemoglobin 05/03/2017 [facility] Glycohemoglobin 6.9 % High 4.2-6.3 37, A1c 134 [facility] (A1c) 38 [place] [address] [phone] eAG 151 mg/dL Basic Metabolic Panel 05/03/2017 [facility] Glucose 196 mg/dL High 74-106 [address] [place] [address] [phone] BUN 12 mg/dL N 7-18 Creatinine 1.2 mg/dL N 0.6-1.3 Glom Filtration Rate, Estimate >60 mL/min >60 If >60 mL/min >60 39 BUN/Creat 10.0 ratio Sodium 140 mmol/L N 136-145 Potassium 4.0 mmol/L N 3.5-5.1 Chloride 105 mmol/L N 98-107 Carbon Dioxide 29 mmol/L N 21-32 Anion Gap 6 mEq/L Low 8-16 Calcium 9.0 mg/dL N 8.5-10.1 Glycohemoglobin 01/31/2017 [facility] Glycohemoglobin 7.1 % High 4.2-6.3 40, A1c [address] (A1c) 41 [place], [place] [id number] [phone] eAG 157 mg/dL Laboratory test finding 12/21/2016 [facility] BUN 12 mg/dL N 7-[address] [place], [place] [id number] [phone] Creatinine 1.0 mg/dL N 0.6-1.3 Glycohemoglobin 10/31/2016 [facility] Glycohemoglobin 7.4 % High 4.2-6.3 43, A1c [address] (A1c) 44 [place], [place] 6[address]9 [phone] eAG 166 mg/dL Microalb/Creat 10/31/2016 [facility] Microalbumin,Urine < 5.0 < 20.0 Ratio,Random [address] mg/L [place], [place] [address]22 [phone] Microalbumin/Creatinine Ratio TNP ug/mgCrt < 30.0 45 Urine Creatinine Conc 47 mg/dL Comprehensive Metabolic 10/31/2016 [facility] Glucose 208 mg/dL High 74-[address] [place], [place] [id number] [phone] BUN 12 mg/dL N 7-18 Creatinine 1.0 mg/dL N 0.6-1.3 Glom Filtration Rate, Estimate >60 mL/min >60 If >60 mL/min >60 46 BUN/Creat 12.0 ratio Sodium 140 mmol/L N [...] U/L Low 45-117 LDL Cholesterol Profile 10/31/2016 [facility] Cholesterol 161 mg/dL <[address] [place], [place] [address]375 [phone] Triglycerides 190 mg/dL High <150 48 HDL Cholesterol 48 mg/dL >40 49 LDL-Cholesterol 75 mg/dL < 100 50 Laboratory test 08/18/2016 [facility] Point of Care 147 High 74-106 51 finding [phone] Glucose mg/dL Glycohemoglobin 08/02/2016 [facility] Glycohemoglobin 6.6 % High 4.2-6.3 52, A1c [address] (A1c) 53 [place], [place] 9702338 [phone] eAG 143 mg/dL Laboratory test 07/14/2016 [facility] Glucose,Bedside 113 High 70-110 [address] mg/dL [place], [place] [address] [phone] Laboratory test 07/14/2016 [facility] Glucose,Bedside 201 High 70-[address] mg/[place] [address] [phone] Laboratory test 07/12/2016 [facility] Glucose,Bedside 103 N 70-[address] mg/dL [place], [place] [address]69 [phone] Laboratory test 07/12/2016 [facility] Glucose,Bedside 198 High 70-[address] mg/[place] [address] [phone] Laboratory test 07/10/2016 [facility] Glucose,Bedside 92 mg/dL N 70-[address] [place] [address] [phone] Laboratory test 07/10/2016 [facility] Glucose,Bedside 81 mg/dL N 70-[address] [place] [address] [phone] Laboratory test 07/10/2016 [facility] Glucose,Bedside 60 mg/dL Low 70-[address] [place] [address] [phone] Laboratory test 07/10/2016 [facility] Glucose,Bedside 131 High 70-[address] mg/[place] [address] [phone] Laboratory test 07/05/2016 [facility] Glucose,Bedside 125 High 70-[address] mg/[place] [address] [phone] Laboratory test 07/05/2016 [facility] Glucose,Bedside 243 High 70-[address] mg/[place] [address] [phone] Laboratory test 07/03/2016 [facility] Glucose,Bedside 95 mg/dL N 70-[address] [place] [address] [phone] Laboratory test 07/03/2016 [facility] Glucose,Bedside 192 High 70-[address] mg/[place] [address] [phone] Laboratory test 06/30/2016 [facility] Glucose,Bedside 107 N 70-[address] mg/[place] [address] [phone] Laboratory test 06/30/2016 [facility] Glucose,Bedside 177 High 70-[address] mg/[place] [address] [phone] Laboratory test 06/26/2016 [facility] Glucose,Bedside 84 mg/dL N 70-110 [address] [place] [address] [phone] Laboratory test 06/26/2016 [facility] Glucose,Bedside 134 High 70-110 [address] mg/[place] [address] [phone] Laboratory test 06/23/2016 [facility] Glucose,Bedside 86 mg/dL N 70-110 [address] [place] [address] [phone] Laboratory test 06/23/2016 [facility] Glucose,Bedside 112 High 70-110 [address] mg/[place] [address] [phone] Laboratory test 06/21/2016 [facility] Glucose,Bedside 158 High 70-[address] mg/dL [place], [place] 4747852 [phone] Laboratory test 06/21/2016 [facility] Glucose,Bedside 228 High 70-[address] mg/[place] [address] [phone] LDL Cholesterol 06/16/2016 [facility] Cholesterol 127 N <200 59, Profile [address] mg/dL 60 [place], [place] 1759[address] [phone] Triglycerides 113 mg/dL N <150 61 HDL Cholesterol 48 mg/dL N >40 62 LDL-Cholesterol 56 mg/dL N < 100 63 Laboratory test 06/14/2016 [facility] Glucose,Bedside 96 N 70-110 [address] mg/dL [place], [place] 465[address]41 [phone] Laboratory test 06/14/2016 [facility] Glucose,Bedside 220 High 70-[address] mg/dL [place], [place] 2201380 [phone] Laboratory test 06/09/2016 [facility] Glucose,Bedside 101 N 70-[address] mg/dL [place], [place] 3950346 [phone] Laboratory test 06/09/2016 [facility] Glucose,Bedside 237 High 70-[address] mg/dL [place], [place] [address]39 [phone] Laboratory test 06/07/2016 [facility] Glucose,Bedside 95 N 70-[address] mg/dL [place], [place] 483[address]82 [phone] Laboratory test 06/07/2016 [facility] Glucose,Bedside 142 High 70-[address] mg/dL [place], [place] 1089709 [phone] Laboratory test 06/05/2016 [facility] Glucose,Bedside 150 High 70-[address] mg/[place] [address] [phone] Laboratory test 06/05/2016 [facility] Glucose,Bedside 176 High 70-[address] mg/[place] [address] [phone] Laboratory test 05/31/2016 [facility] Glucose,Bedside 137 High 70-[address] mg/[place] [address] [phone] Laboratory test 05/31/2016 [facility] Glucose,Bedside 229 High 70-[address] mg/[place] [address] [phone] Laboratory test 05/22/2016 [facility] Glucose,Bedside 89 N 70-[address] mg/[place] [address] [phone] Laboratory test 05/22/2016 [facility] Glucose,Bedside 96 N 70-[address] mg/[place] [address] [phone] Laboratory test 05/19/2016 [facility] Glucose,Bedside 93 N 70-[address] mg/[place] [address] [phone] Laboratory test 05/19/2016 [facility] Glucose,Bedside 175 High 70-[address] mg/[place] [address] [phone] Laboratory test 05/17/2016 [facility] Glucose,Bedside 84 N 70-[address] mg/[place] [address] [phone] Laboratory test 05/17/2016 [facility] Glucose,Bedside 177 High 70-[address] mg/[place] [address] [phone] Laboratory test 05/15/2016 [facility] Glucose,Bedside 109 N 70-[address] mg/[place] [address] [phone] Laboratory test 05/15/2016 [facility] Glucose,Bedside 198 High 70-[address] mg/[place] [address] [phone] Laboratory test 05/10/2016 [facility] Glucose,Bedside 88 N 70-[address] mg/[place] [address] [phone] Laboratory test 05/10/2016 [facility] Glucose,Bedside 181 High 70-[address] mg/[place] [address] [phone] Laboratory test 05/08/2016 [facility] Glucose,Bedside 226 High 70-[address] mg/[place] [address] [phone] Laboratory test 05/08/2016 [facility] Glucose,Bedside 120 High 70-[address] mg/[place] [address] [phone] Laboratory test 05/05/2016 [facility] Glucose,Bedside 158 High 70-[address] mg/[place] [address] [phone] Laboratory test 05/05/2016 [facility] Glucose,Bedside 248 High 70-[address] mg/[place] [address] [phone] Laboratory test 05/03/2016 [facility] Glucose,Bedside 101 N 70-[address] mg/[place] [address] [phone] Laboratory test 05/03/2016 [facility] Glucose,Bedside 164 High 70-[address] mg/[place] [address] [phone] Glycohemoglobin 05/02/2016 [facility] Glycohemoglobin 6.7 % High 4.2-6.3 65, A1c [address] (A1c) 66 [place], [place] [address]48[address]89 [phone] eAG 146 mg/dL N LDL Cholesterol Profile 05/02/2016 [facility] Cholesterol 136 mg/dL N <[address] [place] [address] [phone] Triglycerides 135 mg/dL N <150 68 HDL Cholesterol 45 mg/dL N >40 69 LDL-Cholesterol 64 mg/dL N < 100 70 Comprehensive Metabolic 05/02/2016 [facility] Glucose 149 mg/dL High 74-[address] [place] [address] [phone] BUN 11 mg/dL N 7-18 Creatinine 1.0 mg/dL N 0.6-1.3 Glom Filtration Rate, Estimate >60 mL/min N >60 If >60 mL/min N >60 71 BUN/Creat 11.0 ratio N Sodium 139 mmol/L [...] Phosphatase 41 U/L Low 45-117 Laboratory 05/01/2016 [facility] Glucose,Bedside 131 High 70-110 72 test finding [address] mg/dL [place], [place] [address] [phone] Laboratory 05/01/2016 [facility] Glucose,Bedside 199 High 70-110 test finding [address] mg/[place] [address] [phone] Laboratory 02/10/2016 [facility] Glucose,Bedside 59 mg/dL Low 70-110 73, test finding [address] [place] [address] [phone] Laboratory 02/10/2016 [facility] Pathology Specimen (SEE N 75 test finding [address] NOTE) [place], [place] [address] [phone] Laboratory 02/10/2016 [facility] Glucose,Bedside 136 High 70-110 76 test finding [address] mg/dL [place], [place] [address]66 [phone] CBC 02/07/2016 [facility] White Blood Count 6.9 K/uL N 3.4-10.[address] [place], [place] 97[address]22 [phone] Red Blood Count 4.96 M/uL N 4.20-5.80 [...] 8.4 fL N 6.6-10.6 Urine Screen 02/07/2016 [facility] Urine Color YELLOW N Yellow [address] [place] [address] [phone] Urine Clarity CLEAR N Clear Urine Glucose - Dipstick NEGATIVE mg/dL N Negative Urine Bilirubin - Dipstick NEGATIVE N Negative Urine Ketone NEGATIVE mg/dL N Negative Urine Specific [place] <=1.005 Low 1.010-1.030 Urine Blood NEGATIVE N Negative Urine PH 6.0 Low 6.5-7.5 Urine Protein - Dipstick NEGATIVE mg/dL N Negative Urine Urobilinogen - Dipstick 0.2 E.U./dL N 0.2-1.0 Urine Nitrite - Dipstick NEGATIVE N Negative Urine Leuk Esterase NEGATIVE N Negative Source: URINE, CLEAN CAT <SEE NOTE> 78 Glycohemoglobin 01/28/2016 [facility] Glycohemoglobin 7.8 % High 4.2-6.3 79 A1c [address] [facility] (A1c) [place], [place] 1738435 [phone] eAG 177 mg/dL Basic Metabolic Panel 12/07/2015 [facility] Glucose 256 mg/dL High 74-106 [address] [place], [place] [address]74 [phone] BUN 11 mg/dL 7-18 Creatinine 1.0 mg/dL 0.6-1.3 Glom Filtration Rate, Estimate >60 mL/min >60 If >60 mL/min >60 80 BUN/Creat 11.0 ratio Sodium 134 mmol/L Low 136-145 Potassium 4.5 mmol/L 3.5-5.1 Chloride 100 mmol/L 98-107 Carbon Dioxide 28 mmol/L 21-32 Anion Gap 6 mEq/L Low 8-16 Calcium 9.0 mg/dL 8.5-10.1 CBC W/Automated Diff 12/07/2015 [facility] White Blood 6.2 K/uL 3.4-10.[address] [place] [address] [phone] Red Blood Count 5.19 M/uL 4.20-5.80 Hemoglobin [...] % 33.0-73.0 Lymph % 28.6 % 17.0-56.0 Dolores % 8.6 % 0.0-10.0 Eo% 15.5 % High 0.0-5.0 Bas% 1.1 % High 0.1-1.0 Neut# 2.85 K/uL 1.8-7.0 Lymph # 1.77 K/uL Low 1.8-7.0 Dolores # 0.53 K/uL 0.0-0.8 Eos # 0.96 K/uL High 0.0-0.5 Baso # 0.07 K/uL Low 0.1-0.2 Protime 12/07/2015 [facility] Protime 13.9 seconds 12.0-14.[address] [place] [address] [phone] Inr 1.1 0.9-1.1 81 Laboratory test 12/07/2015 [facility] Act Partial 36.7 High 23.4-35.0 [address] [place] [place] [address] [phone] LDL Cholesterol 12/07/2015 [facility] Cholesterol 158 mg/dL <200 [address] [place] [address] [phone] Triglycerides 294 mg/dL High <150 84 HDL Cholesterol 46 mg/dL >40 85 LDL-Cholesterol 53 mg/dL < 100 86 Basic Metabolic 11/08/2015 [facility] Basic Metabolic (SEE NOTE) [address] [place] [address] [phone] Glucose 201 mg/dL High 74-106 BUN 9 mg/dL 7-18 Creatinine 1.1 mg/dL 0.6-1.3 Glom Filtration Rate, Estimate >60 mL/min >60 If >60 mL/min >60 88 BUN/Creat 8.1 ratio Sodium 135 mmol/L Low 136-145 Potassium 4.3 mmol/L 3.5-5.1 Chloride 100 mmol/L 98-107 Carbon Dioxide 27 mmol/L 21-32 Anion Gap 8 mEq/L 8-16 Calcium 9.1 mg/dL 8.5-10.1 Glycohemoglobin 11/08/2015 [facility] Glycohemoglobin 9.1 % High 4.2-6.3 [address] (A1c) [place] [address] [phone] eAG 214 mg/dL Microalb/Creat 11/08/2015 [facility] Microalbumin,Urine < 5.0 < 20.0 Ratio,Random Ur [address] mg/[place] [address] [phone] Microalbumin/Creatinine Ratio See Note ug/mgCrt < 30.0 90 Urine Creatinine Conc 36 mg/dL Urine Screen 11/04/2015 [facility] Urine Color YELLOW Yellow [address] [place] [address] [phone] Urine Clarity CLEAR Clear Urine Glucose - Dipstick >=1000 mg/dL High Negative Urine Bilirubin - Dipstick NEGATIVE Negative Urine Ketone NEGATIVE mg/dL Negative Urine Specific [place] 1.010 1.010-1.030 Urine Blood NEGATIVE Negative Urine PH 5.0 Low 6.5-7.5 Urine Protein - Dipstick NEGATIVE mg/dL Negative Urine Urobilinogen - Dipstick 0.2 E.U./dL 0.2-1.0 Urine Nitrite - Dipstick NEGATIVE Negative Urine Leuk Esterase NEGATIVE Negative CBC W/Automated Diff 11/04/2015 [facility] White Blood 5.9 K/uL 3.4-10.[address] [place] [address] [phone] Red Blood Count 5.24 M/uL 4.20-5.80 Hemoglobin [...] % 33.0-73.0 Lymph % 29.6 % 17.0-56.0 Dolores % 10.3 % High 0.0-10.0 Eo% 5.0 % 0.0-5.0 Bas% 0.7 % 0.1-1.0 Neut# 3.19 K/uL 1.8-7.0 Lymph # 1.73 K/uL Low 1.8-7.0 Dolores # 0.60 K/uL 0.0-0.8 Eos # 0.29 K/uL 0.0-0.5 Baso # 0.04 K/uL Low 0.1-0.2 Comprehensive Metabolic 11/04/2015 [facility] Glucose 176 mg/dL High 74-106 Panel [address] [place] [address] [phone] BUN 12 mg/dL 7-18 Creatinine 1.0 mg/dL 0.6-1.3 Glom Filtration Rate, Estimate >60 mL/min >60 If >60 mL/min >60 91 BUN/Creat 12.0 ratio Sodium 137 mmol/L 136-145 Potassium 4.9 mmol/L 3.5-5.1 Chloride 102 mmol/L 98-107 Carbon Dioxide 28 mmol/L 21-32 Anion Gap 7 mEq/L Low 8-16 Calcium 9.4 mg/dL 8.5-10.1 Total Protein 7.4 g/dL 6.4-8.2 Albumin 4.1 g/dL 3.4-5.0 Globulin 3.3 g/dL 1.9-4.3 Alb/Glob 1.2 ratio Bilirubin,Total 0.4 mg/dL 0.2-1.0 Sgot/Ast 28 U/L 15-37 SGPT/Alt 74 U/L 12-78 Alkaline Phosphatase 47 U/L 45-117 Basic Metabolic Panel 08/09/2015 [facility] Glucose 354 mg/dL High 74-106 [address] [place] [address] [phone] BUN 10 mg/dL 7-18 Creatinine 1.1 mg/dL 0.6-1.3 Glom Filtration Rate, Estimate >60 mL/min >60 If >60 mL/min >60 92 BUN/Creat 9.0 ratio Sodium 137 mmol/L 136-145 Potassium 4.4 mmol/L 3.5-5.1 Chloride 98 mmol/L 98-107 Carbon Dioxide 27 mmol/L 21-32 Anion Gap 12 mEq/L 8-16 Calcium 8.8 mg/dL 8.5-10.1 Glycohemoglobin 08/09/2015 [facility] Glycohemoglobin 9.4 % High 4.2-6.3 93 A1c [address] [facility] (A1c) [place] [address] [phone] eAG 223 mg/dL LDL Cholesterol 08/09/2015 [facility] Cholesterol 149 mg/dL Low 150-200 94 Profile [address] [place] [address] [phone] Triglycerides 268 mg/dL High 50-150 95 HDL Cholesterol 37 mg/dL Low 60-150 96 LDL-Cholesterol 58 mg/dL Low 75-100 97 Liver Function Tests 08/09/2015 [facility] Total Protein 7.1 g/dL 6.4-8.2 [address] [place] [address] [phone] Albumin 4.0 g/dL 3.4-5.0 Globulin 3.1 g/dL 1.9-4.3 Alb/Glob 1.3 ratio Bilirubin,Total 0.4 mg/dL 0.2-1.0 Bilirubin,Direct 0.1 mg/dL 0.0-0.2 Bilirubin,Indirect 0.3 mg/dL 0.0-0.9 Sgot/Ast 23 U/L 15-37 SGPT/Alt 59 U/L 12-78 Alkaline Phosphatase 62 U/L 45-117 Microalb/Creat 08/09/2015 [facility] Microalbumin,Urine < 5.0 < 20.0 Ratio,Random Ur [address] mg/L [place], [place] 4372682 [phone] Microalbumin/Creatinine Ratio See Note ug/mgCrt < 30.0 98 Urine Creatinine Conc 64 mg/dL Laboratory test 06/30/2015 [facility] Polyp Colon And/Or See Note [address] Rectum [place], [place] [address]24 [phone] Laboratory test 04/06/2015 N2N/CCD Import Estimated Average 180 finding Glucose (eAG) Hemoglobin A1c 7.9 High 4.2-6.3 Sodium Level 137 136-145 Liver Function Tests 04/06/2015 [facility] Total Protein 7.7 g/dL 6.4-8.[address] [place], [place] 1856720 [phone] Albumin 4.2 g/dL 3.4-5.0 Globulin 3.5 g/dL 1.9-4.3 Alb/Glob 1.2 ratio Bilirubin,Total 0.4 mg/dL 0.2-1.0 Bilirubin,Direct < 0.1 mg/dL 0.0-0.2 Bilirubin,Indirect 0.3 mg/dL 0.0-0.9 Sgot/Ast 34 U/L 15-37 SGPT/Alt 55 U/L 12-78 Alkaline Phosphatase 36 U/L Low 45-117 Laboratory test 04/06/2015 [facility] Prostate 0.31 ng/mL [address] [place] [address] Antigen [phone] Basic Metabolic 04/06/2015 [facility] Glucose 160 mg/dL High 74-[address] [place] [address] [phone] BUN 16 mg/dL 7-18 Creatinine 1.0 mg/dL 0.6-1.3 Glom Filtration Rate, Estimate >60 mL/min >60 If >60 mL/min >60 101 BUN/Creat 16.0 ratio Sodium 137 mmol/L 136-145 Potassium 4.6 mmol/L 3.5-5.1 Chloride 102 mmol/L 98-107 Carbon Dioxide 31 mmol/L 21-32 Anion Gap 4 mEq/L Low 8-16 Calcium 9.0 mg/dL 8.5-10.1 LDL Cholesterol 04/06/2015 [facility] Cholesterol 277 mg/dL High 150-200 102 Profile [address] [place] [address] [phone] Triglycerides 393 mg/dL High 50-150 103 HDL Cholesterol 46 mg/dL Low 60-150 104 LDL-Cholesterol 152 mg/dL High 75-100 105 Glycohemoglobin 04/06/2015 [facility] Glycohemoglobin 7.9 % High 4.2-6.3 106 A1c [address] (A1c) [place], [place] [address]85 [phone] eAG 180 mg/dL Basic Metabolic Panel 11/23/2014 [facility] Glucose 76 mg/dL 74-106 [address] [place] [address] [phone] BUN 9 mg/dL 7-18 Creatinine 0.9 mg/dL 0.6-1.3 Glom Filtration Rate, Estimate >60 mL/min >60 If >60 mL/min >60 107 BUN/Creat 10.0 ratio Sodium 139 mmol/L 136-145 Potassium 4.3 mmol/L 3.5-5.1 Chloride 103 mmol/L 98-107 Carbon Dioxide 30 mmol/L 21-32 Anion Gap 6 mEq/L Low 8-16 Calcium 9.2 mg/dL 8.5-10.1 Glycohemoglobin 11/23/2014 [facility] Glycohemoglobin 6.8 % High 4.2-6.3 108 A1c [address] (A1c) [place], [place] [address]258793 [phone] eAG 148 mg/dL LDL Cholesterol 11/23/2014 [facility] Cholesterol 240 mg/dL High 150-200 109 Profile [address] [place] [address] [phone] Triglycerides 205 mg/dL High 50-150 110 HDL Cholesterol 48 mg/dL Low 60-150 111 LDL-Cholesterol 151 mg/dL High 75-100 112 Liver Function Tests 11/23/2014 [facility] Total Protein 7.6 g/dL 6.4-8.2 [address] [place] [address] [phone] Albumin 4.3 g/dL 3.4-5.0 Globulin 3.3 g/dL 1.9-4.3 Alb/Glob 1.3 ratio Bilirubin,Total 0.3 mg/dL 0.2-1.0 Bilirubin,Direct < 0.1 mg/dL 0.0-0.2 Bilirubin,Indirect 0.2 mg/dL 0.0-0.9 Sgot/Ast 20 U/L 15-37 SGPT/Alt 41 U/L 12-78 Alkaline Phosphatase 33 U/L Low 45-117 Laboratory 10/14/2014 [facility] Microalbumin,Random < 5.0 mg/L < 20.0 test finding [address] Urine [place], [place] [id number] [phone] Laboratory 07/21/2014 N2N/[facility] Import Hepatitis C Antibody Nonreactive 113 test finding Nonreactive Microalb/Creat Ratio,Random See Note 114 Signal/Cutoff ratio < 0.02 <0.80 115 CBC/Manual Differential 07/21/2014 N2N/CCD Import Anisocytosis 0-1+ [...] #CELLS White Blood Count 5.8 K/uL 3.4-10.5 Comprehensive Metabolic Panel 07/21/2014 N2N/CCD Import Alb/Glob 1.1 ratio Albumin 3.5 g/dL 3.4-5.0 Alkaline Phosphatase [...] mg/dL High 74-106 If >60 mL/min >60 116 Potassium 4.7 mmol/L 3.5-5.1 SGPT/Alt 33 U/L 12-78 Sgot/Ast 22 U/L 15-37 Sodium 142 mmol/L 136-145 Total Protein 6.7 g/dL 6.4-8.2 Glycohemoglobin A1c 07/21/2014 N2N/CCD Import Glycohemoglobin (A1c) 6.2 % 4.2-6.3 117 eAG 131 mg/dL LDL Cholesterol Profile 07/21/2014 N2N/CCD Import Cholesterol 200 mg/dL < 200 118 HDL Cholesterol 43 mg/dL > 40 119 LDL-Cholesterol 134 mg/dL < 100 120 Triglycerides 114 mg/dL < 150 121 1 E11.9 2 Elevated levels of HbA1c suggest the need for more aggressive treatment of glycemia. The [place] [employer] recommends that a primary goal of therapy should be a HbA1c of <7% and that physicians should re-evaluate the treatment regimen in patients with HbA1c values consistently >8%. 3 Elevated levels of HbA1c suggest the need for more aggressive treatment of glycemia. The [place] [employer] recommends that a primary goal of therapy should be a HbA1c of <7% and that physicians should re-evaluate the treatment regimen in patients with HbA1c values consistently >8%. 4 Reference Guidelines*: Desirable: ........... < 200 mg/dL Borderline High: ..... 200-239 mg/dL High: ................ >=240 mg/dL * The National Cholesterol Education Program (NCEP) 5 Reference Guidelines*: Normal: ............. < 150 mg/dL Borderline High: .... 150-199 mg/dL High: ............... 200-499 mg/dL Very High: .......... > 500 mg/dL * Source: National Cholesterol Education Program (NCEP) 6 Reference Guidelines*: Low HDL: ..... < 40 mg/dL Normal: ..... 40-60 mg/dL Desirable: ... > 60 mg/dL *The National Cholesterol Education Program(NCEP) 7 Reference Guidelines*: Optimal:........... <100 mg/dL Near Optimal....... 100-129 mg/dL Borderline High.... 130-159 mg/dL High............... 160-189 mg/dL Very High.......... >=190 mg/dL * Source: National Cholesterol Education Program (NCEP) 8 Note: Persistent reduction for 3 months or more in an eGFR <60 mL/min/1.73 m2 defines CKD. Patients with eGFR values >/=60 mL/min/1.73 m2 may also have CKD if evidence of persistent proteinuria is present. The original MDRD equation for estimated GFR is not valid for patients less than 18 years of age. Additional information may be found at [email or web address]. 9 Elevated levels of HbA1c suggest the need for more aggressive treatment of glycemia. The [place] [employer] recommends that a primary goal of therapy should be a HbA1c of <7% and that physicians should re-evaluate the treatment regimen in patients with HbA1c values consistently >8%. 10 Elevated levels of HbA1c suggest the need for more aggressive treatment of glycemia. The [place] [employer] recommends that a primary goal of therapy should be a HbA1c of <7% and that physicians should re-evaluate the treatment regimen in patients with HbA1c values consistently >8%. 11 Note: Persistent reduction for 3 months or more in an eGFR <60 mL/min/1.73 m2 defines CKD. Patients with eGFR values >/=60 mL/min/1.73 m2 may also have CKD if evidence of persistent proteinuria is present. The original MDRD equation for estimated GFR is not valid for patients less than 18 years of age. Additional information may be found at [email or web address]. 12 Reference Guidelines*: Desirable: ........... < 200 mg/dL Borderline High: ..... 200-239 mg/dL High: ................ >=240 mg/dL * The National Cholesterol Education Program (NCEP) 13 Reference Guidelines*: Normal: ............. < 150 mg/dL Borderline High: .... 150-199 mg/dL High: ............... 200-499 mg/dL Very High: .......... > 500 mg/dL * Source: National Cholesterol Education Program (NCEP) 14 Reference Guidelines*: Low HDL: ..... < 40 mg/dL Normal: ..... 40-60 mg/dL Desirable: ... > 60 mg/dL *The National Cholesterol Education Program(NCEP) 15 Reference Guidelines*: Optimal:........... <100 mg/dL Near Optimal....... 100-129 mg/dL Borderline High.... 130-159 mg/dL High............... 160-189 mg/dL Very High.......... >=190 mg/dL * Source: National Cholesterol Education Program (NCEP) 16 E11.9 I10 17 Elevated levels of HbA1c suggest the need for more aggressive treatment of glycemia. The [place] [employer] recommends that a primary goal of therapy should be a HbA1c of <7% and that physicians should re-evaluate the treatment regimen in patients with HbA1c values consistently >8%. 18 Valid ratio could not be calculated due to non-numeric result. 19 Note: Persistent reduction for 3 months or more in an eGFR <60 mL/min/1.73 m2 defines CKD. Patients with eGFR values >/=60 mL/min/1.73 m2 may also have CKD if evidence of persistent proteinuria is present. The original MDRD equation for estimated GFR is not valid for patients less than 18 years of age. Additional information may be found at [email or web address]. 20 CP, BACK PAIN, L SIDE 21 0.0 - 0.045 ng/mL: Normal 0.046 - 0.5 ng/mL: Suggestive 0.6 - 1.5 ng/mL: Consistent 22 Note: Persistent reduction for 3 months or more in an eGFR <60 mL/min/1.73 m2 defines CKD. Patients with eGFR values >/=60 mL/min/1.73 m2 may also have CKD if evidence of persistent proteinuria is present. The original MDRD equation for estimated GFR is not valid for patients less than 18 years of age. Additional information may be found at [email or web address]. 23 0.0 - 0.045 ng/mL: Normal 0.046 - 0.5 ng/mL: Suggestive 0.6 - 1.5 ng/mL: Consistent 24 Z12.5 E11.9 25 THIS ASSAY IS NOT INTENDED A CANCER SCREENING TEST The concentration of PSA in a given specimen, determined with assays from different manufacturers, can vary due to differences in assay methods and reagent specificity. Values obtained from different assay methods cannot be used interchangeably. Method: Pivot3ta Chemiluminescent immunoassay. 26 Elevated levels of HbA1c suggest the need for more aggressive treatment of glycemia. The [place] [employer] recommends that a primary goal of therapy should be a HbA1c of <7% and that physicians should re-evaluate the treatment regimen in patients with HbA1c values consistently >8%. 27 Reference Guidelines*: Desirable: ........... < 200 mg/dL Borderline High: ..... 200-239 mg/dL High: ................ >=240 mg/dL * The National Cholesterol Education Program (NCEP) 28 Reference Guidelines*: Normal: ............. < 150 mg/dL Borderline High: .... 150-199 mg/dL High: ............... 200-499 mg/dL Very High: .......... > 500 mg/dL * Source: National Cholesterol Education Program (NCEP) 29 Reference Guidelines*: Low HDL: ..... < 40 mg/dL Normal: ..... 40-60 mg/dL Desirable: ... > 60 mg/dL *The National Cholesterol Education Program(NCEP) 30 Reference Guidelines*: Optimal:........... <100 mg/dL Near Optimal....... 100-129 mg/dL Borderline High.... 130-159 mg/dL High............... 160-189 mg/dL Very High.......... >=190 mg/dL * Source: National Cholesterol Education Program (NCEP) 31 Note: Persistent reduction for 3 months or more in an eGFR <60 mL/min/1.73 m2 defines CKD. Patients with eGFR values >/=60 mL/min/1.73 m2 may also have CKD if evidence of persistent proteinuria is present. The original MDRD equation for estimated GFR is not valid for patients less than 18 years of age. Additional information may be found at [email or web address]. 32 E78.5 33 Reference Guidelines*: Desirable: ........... < 200 mg/dL Borderline High: ..... 200-239 mg/dL High: ................ >=240 mg/dL * The National Cholesterol Education Program (NCEP) 34 Reference Guidelines*: Normal: ............. < 150 mg/dL Borderline High: .... 150-199 mg/dL High: ............... 200-499 mg/dL Very High: .......... > 500 mg/dL * Source: National Cholesterol Education Program (NCEP) 35 Reference Guidelines*: Low HDL: ..... < 40 mg/dL Normal: ..... 40-60 mg/dL Desirable: ... > 60 mg/dL *The National Cholesterol Education Program(NCEP) 36 Reference Guidelines*: Optimal:........... <100 mg/dL Near Optimal....... 100-129 mg/dL Borderline High.... 130-159 mg/dL High............... 160-189 mg/dL Very High.......... >=190 mg/dL * Source: National Cholesterol Education Program (NCEP) 37 E11.9 I10 38 Elevated levels of HbA1c suggest the need for more aggressive treatment of glycemia. The [place] [employer] recommends that a primary goal of therapy should be a HbA1c of <7% and that physicians should re-evaluate the treatment regimen in patients with HbA1c values consistently >8%. 39 Note: Persistent reduction for 3 months or more in an eGFR <60 mL/min/1.73 m2 defines CKD. Patients with eGFR values >/=60 mL/min/1.73 m2 may also have CKD if evidence of persistent proteinuria is present. The original MDRD equation for estimated GFR is not valid for patients less than 18 years of age. Additional information may be found at [email or web address]. 40 E11.9 41 Elevated levels of HbA1c suggest the need for more aggressive treatment of glycemia. The [place] [employer] recommends that a primary goal of therapy should be a HbA1c of <7% and that physicians should re-evaluate the treatment regimen in patients with HbA1c values consistently >8%. 42 M79.601, M25.511 43 E11.9 I10 E78.5 44 Elevated levels of HbA1c suggest the need for more aggressive treatment of glycemia. The [place] [employer] recommends that a primary goal of therapy should be a HbA1c of <7% and that physicians should re-evaluate the treatment regimen in patients with HbA1c values consistently >8%. 45 Valid ratio could not be calculated due to non-numeric result. 46 Note: Persistent reduction for 3 months or more in an eGFR <60 mL/min/1.73 m2 defines CKD. Patients with eGFR values >/=60 mL/min/1.73 m2 may also have CKD if evidence of persistent proteinuria is present. The original MDRD equation for estimated GFR is not valid for patients less than 18 years of age. Additional information may be found at [email or web address]. 47 Reference Guidelines*: Desirable: ........... < 200 mg/dL Borderline High: ..... 200-239 mg/dL High: ................ >=240 mg/dL * The National Cholesterol Education Program (NCEP) 48 Reference Guidelines*: Normal: ............. < 150 mg/dL Borderline High: .... 150-199 mg/dL High: ............... 200-499 mg/dL Very High: .......... > 500 mg/dL * Source: National Cholesterol Education Program (NCEP) 49 Reference Guidelines*: Low HDL: ..... < 40 mg/dL Normal: ..... 40-60 mg/dL Desirable: ... > 60 mg/dL *The National Cholesterol Education Program(NCEP) 50 Reference Guidelines*: Optimal:........... <100 mg/dL Near Optimal....... 100-129 mg/dL Borderline High.... 130-159 mg/dL High............... 160-189 mg/dL Very High.......... 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 The [place] [employer] recommends that a primary goal of therapy should be a HbA1c of <7% and that physicians should re-evaluate the treatment regimen in patients with HbA1c values consistently >8%. 54 CAD NO AMEANABLE FOR REVASCULARIZATION CATH 55 Charting This Result 56 Charting This Result 57 Charting This Result 58 Charting This Result 59 E11.9,E78.5 60 Reference Guidelines*: Desirable: ........... < 200 mg/dL Borderline High: ..... 200-239 mg/dL High: ................ >=240 mg/dL * The National Cholesterol Education Program (NCEP) 61 Reference Guidelines*: Normal: ............. < 150 mg/dL Borderline High: .... 150-199 mg/dL High: ............... 200-499 mg/dL Very High: .......... > 500 mg/dL * Source: National Cholesterol Education Program (NCEP) 62 Reference Guidelines*: Low HDL: ..... < 40 mg/dL Normal: ..... 40-60 mg/dL Desirable: ... > 60 mg/dL *The National Cholesterol Education Program(NCEP) 63 Reference Guidelines*: Optimal:........... <100 mg/dL Near Optimal....... 100-129 mg/dL Borderline High.... 130-159 mg/dL High............... 160-189 mg/dL Very High.......... >=190 mg/dL * Source: National Cholesterol Education Program (NCEP) 64 CAD NO AMEANABLE FOR REVASCULARIZATION CATH 65 E11.9 E78.5 66 Elevated levels of HbA1c suggest the need for more aggressive treatment of glycemia. The [place] [employer] recommends that a primary goal of therapy should be a HbA1c of <7% and that physicians should re-evaluate the treatment regimen in patients with HbA1c values consistently >8%. 67 Reference Guidelines*: Desirable: ........... < 200 mg/dL Borderline High: ..... 200-239 mg/dL High: ................ >=240 mg/dL * The National Cholesterol Education Program (NCEP) 68 Reference Guidelines*: Normal: ............. < 150 mg/dL Borderline High: .... 150-199 mg/dL High: ............... 200-499 mg/dL Very High: .......... > 500 mg/dL * Source: National Cholesterol Education Program (NCEP) 69 Reference Guidelines*: Low HDL: ..... < 40 mg/dL Normal: ..... 40-60 mg/dL Desirable: ... > 60 mg/dL *The National Cholesterol Education Program(NCEP) 70 Reference Guidelines*: Optimal:........... <100 mg/dL Near Optimal....... 100-129 mg/dL Borderline High.... 130-159 mg/dL High............... 160-189 mg/dL Very High.......... >=190 mg/dL * Source: National Cholesterol Education Program (NCEP) 71 Note: Persistent reduction for 3 months or more in an eGFR <60 mL/min/1.73 m2 defines CKD. Patients with eGFR values >/=60 mL/min/1.73 m2 may also have CKD if evidence of persistent proteinuria is present. The original MDRD equation for estimated GFR is not valid for patients less than 18 years of age. Additional information may be found at [email or web address]. 72 CAD NO AMEANABLE FOR REVASCULARIZATION CATH 73 [phone] 74 Charting This Result Notify Physician 75 LEFT ACROMIUM LEFT CLAVICLE Hard copy of report to be sent by mail Report may be viewed in Clinical Review, or in PCI under Medical Record Forms 76 Charting This Result Notify Physician 77 08:00 [facility] [place] 02/09 [id number] M75.122 78 URINE, CLEAN CATCH 79 Elevated levels of HbA1c suggest the need for more aggressive treatment of glycemia. The [place] [employer] recommends that a primary goal of therapy should be a HbA1c of <7% and that physicians should re-evaluate the treatment regimen in patients with HbA1c values consistently >8%. 80 Note: Persistent reduction for 3 months or more in an eGFR <60 mL/min/1.73 m2 defines CKD. Patients with eGFR values >/=60 mL/min/1.73 m2 may also have CKD if evidence of persistent proteinuria is present. The original MDRD equation for estimated GFR is not valid for patients less than 18 years of age. Additional information may be found at [email or web address]. 81 THERAPEUTIC INR RANGE: 2.0 - 3.0 DVT, Pulmonary embolus, prophylaxis against venous thrombosis or systemic embolization in high risk patients. 2.5 - 3.5 Mechanical heart valves 82 QUERY: Anticoagulant Therapy? Y QUERY: Date of Last Dose: 12/07/15 QUERY: Time of Last Dose: 999 83 Reference Guidelines*: Desirable: ........... < 200 mg/dL Borderline High: ..... 200-239 mg/dL High: ................ >=240 mg/dL * The National Cholesterol Education Program (NCEP) 84 Reference Guidelines*: Normal: ............. < 150 mg/dL Borderline High: .... 150-199 mg/dL High: ............... 200-499 mg/dL Very High: .......... > 500 mg/dL * Source: National Cholesterol Education Program (NCEP) 85 Reference Guidelines*: Low HDL: ..... < 40 mg/dL Normal: ..... 40-60 mg/dL Desirable: ... > 60 mg/dL *The National Cholesterol Education Program(NCEP) 86 Reference Guidelines*: Optimal:........... <100 mg/dL Near Optimal....... 100-129 mg/dL Borderline High.... 130-159 mg/dL High............... 160-189 mg/dL Very High.......... >=190 mg/dL * Source: National Cholesterol Education Program (NCEP) 87 QUERY: Is Patient Fasting? N 88 Note: Persistent reduction for 3 months or more in an eGFR <60 mL/min/1.73 m2 defines CKD. Patients with eGFR values >/=60 mL/min/1.73 m2 may also have CKD if evidence of persistent proteinuria is present. The original MDRD equation for estimated GFR is not valid for patients less than 18 years of age. Additional information may be found at [email or web address]. 89 Elevated levels of HbA1c suggest the need for more aggressive treatment of glycemia. The [place] [employer] recommends that a primary goal of therapy should be a HbA1c of <7% and that physicians should re-evaluate the treatment regimen in patients with HbA1c values consistently >8%. 90 Test not performed Valid ratio could not be calculated due to non-numeric result. 91 Note: Persistent reduction for 3 months or more in an eGFR <60 mL/min/1.73 m2 defines CKD. Patients with eGFR values >/=60 mL/min/1.73 m2 may also have CKD if evidence of persistent proteinuria is present. The original MDRD equation for estimated GFR is not valid for patients less than 18 years of age. Additional information may be found at [email or web address]. 92 Note: Persistent reduction for 3 months or more in an eGFR <60 mL/min/1.73 m2 defines CKD. Patients with eGFR values >/=60 mL/min/1.73 m2 may also have CKD if evidence of persistent proteinuria is present. The original MDRD equation for estimated GFR is not valid for patients less than 18 years of age. Additional information may be found at [email or web address]. 93 Elevated levels of HbA1c suggest the need for more aggressive treatment of glycemia. The [place] [employer] recommends that a primary goal of therapy should be a HbA1c of <7% and that physicians should re-evaluate the treatment regimen in patients with HbA1c values consistently >8%. 94 Reference Guidelines*: Desirable: ........... < 200 mg/dL Borderline High: ..... 200-239 mg/dL High: ................ >=240 mg/dL * The National Cholesterol Education Program (NCEP) 95 Reference Guidelines*: Normal: ............. < 150 mg/dL Borderline High: .... 150-199 mg/dL High: ............... 200-499 mg/dL Very High: .......... > 500 mg/dL * Source: National Cholesterol Education Program (NCEP) 96 Reference Guidelines*: Low HDL: ..... < 40 mg/dL Normal: ..... 40-60 mg/dL Desirable: ... > 60 mg/dL *The National Cholesterol Education Program(NCEP) 97 Reference Guidelines*: Optimal:........... <100 mg/dL Near Optimal....... 100-129 mg/dL Borderline High.... 130-159 mg/dL High............... 160-189 mg/dL Very High.......... >=190 mg/dL * Source: National Cholesterol Education Program (NCEP) 98 Test not performed Valid ratio could not be calculated due to non-numeric result. 99 OPERATION/PROCEDURE Colonoscopy DIAGNOSIS: PART 1: "COLON, RANDOM BIOPSIES": - LARGE INTESTINAL MUCOSA WITH NO SIGNIFICANT PATHOLOGIC ABNORMALITIES. - NO EVIDENCE OF MICROSCOPIC/LYMPHOCYTIC COLITIS, COLLAGENOUS COLITIS OR OTHER INFLAMMATORY BOWEL PROCESS IDENTIFIED. PART 2: "COLON, RECTUM, BIOPSY": - INFLAMMATORY (RETENTION POLYP). ROSALINDA/nitza 1032 GROSS The specimen is received in [...] cm. in aggregate. Submitted entirely, one cassette. /clf PRE OPERATIVE DIAGNOSIS Abdominal pain. REVIEW CODE CODE: I Signed Electronically signed GERRI DEVI MD 1153 100 THIS ASSAY IS NOT INTENDED A CANCER SCREENING TEST The concentration of PSA in a given specimen, determined with assays from different manufacturers, can vary due to differences in assay methods and reagent specificity. Values obtained from different assay methods cannot be used interchangeably. 101 Note: Persistent reduction for 3 months or more in an eGFR <60 mL/min/1.73 m2 defines CKD. Patients with eGFR values >/=60 mL/min/1.73 m2 may also have CKD if evidence of persistent proteinuria is present. The original MDRD equation for estimated GFR is not valid for patients less than 18 years of age. Additional information may be found at [email or web address]. 102 Reference Guidelines*: Desirable: ........... < 200 mg/dL Borderline High: ..... 200-239 mg/dL High: ................ >=240 mg/dL * The National Cholesterol Education Program (NCEP) 103 Reference Guidelines*: Normal: ............. < 150 mg/dL Borderline High: .... 150-199 mg/dL High: ............... 200-499 mg/dL Very High: .......... > 500 mg/dL * Source: National Cholesterol Education Program (NCEP) 104 Reference Guidelines*: Low HDL: ..... < 40 mg/dL Normal: ..... 40-60 mg/dL Desirable: ... > 60 mg/dL *The National Cholesterol Education Program(NCEP) 105 Reference Guidelines*: Optimal:........... <100 mg/dL Near Optimal....... 100-129 mg/dL Borderline High.... 130-159 mg/dL High............... 160-189 mg/dL Very High.......... >=190 mg/dL * Source: National Cholesterol Education Program (NCEP) 106 Elevated levels of HbA1c suggest the need for more aggressive treatment of glycemia. The [place] [employer] recommends that a primary goal of therapy should be a HbA1c of <7% and that physicians should re-evaluate the treatment regimen in patients with HbA1c values consistently >8%. 107 Note: Persistent reduction for 3 months or more in an eGFR <60 mL/min/1.73 m2 defines CKD. Patients with eGFR values >/=60 mL/min/1.73 m2 may also have CKD if evidence of persistent proteinuria is present. The original MDRD equation for estimated GFR is not valid for patients less than 18 years of age. Additional information may be found at [email or web address]. 108 Elevated levels of HbA1c suggest the need for more aggressive treatment of glycemia. The [place] [employer] recommends that a primary goal of therapy should be a HbA1c of <7% and that physicians should re-evaluate the treatment regimen in patients with HbA1c values consistently >8%. 109 Reference Guidelines*: Desirable: ........... < 200 mg/dL Borderline High: ..... 200-239 mg/dL High: ................ >=240 mg/dL * The National Cholesterol Education Program (NCEP) 110 Reference Guidelines*: Normal: ............. < 150 mg/dL Borderline High: .... 150-199 mg/dL High: ............... 200-499 mg/dL Very High: .......... > 500 mg/dL * Source: National Cholesterol Education Program (NCEP) 111 Reference Guidelines*: Low HDL: ..... < 40 mg/dL Normal: ..... 40-60 mg/dL Desirable: ... > 60 mg/dL *The National Cholesterol Education Program(NCEP) 112 Reference Guidelines*: Optimal:........... <100 mg/dL Near Optimal....... 100-129 mg/dL Borderline High.... 130-159 mg/dL High............... 160-189 mg/dL Very High.......... >=190 mg/dL * Source: National Cholesterol Education Program (NCEP) 113 To discuss at visit scheduled 07/31/14 114 NO UA RECIEVED. PER ALO OFFICE AWARE 115 Antibodies to HCV not detected; does not exclude early acute HCV infection. 116 Note: Persistent reduction for 3 months or more in an eGFR <60 mL/min/ 1.73 m2 defines CKD. Patients with eGFR values >/=60 mL/min/1.73 m2 may also have CKD if evidence of persistent proteinuria is present. The original MDRD equation for estimated GFR is not valid for patients less than 18 years of age. Additional information may be found at [email or web address]. 117 Elevated levels of HbA1c suggest the need for more aggressive treatment of glycemia. The [place] [employer] recommends that a primary goal of therapy should be a HbA1c of <7% and that physicians should re-evaluate the treatment regimen in patients with HbA1c values consistently >8%. 118 Reference Guidelines*: Desirable: ........... < 200 mg/dL Borderline High : ..... 200-239 mg/dL High: ................ >=240 mg/dL * The National Cholesterol Education Program (NCEP) 119 Reference Guidelines*: Low HDL: ..... < 40 mg/dL Normal: ..... 40-60 mg/dL Desirable: ... > 60 mg/dL *The National Cholesterol Education Program(NCEP) 120 Reference Guidelines*: Optimal:........... <100 mg/dL Near Optimal....... 100-129 mg/dL Borderline High.... 130-159 mg/dL High............... 160-189 mg/dL Very High.......... >=190 mg/dL * Source: National Cholesterol Education Program (NCEP) 121 Reference Guidelines*: Normal: ............. < 150 mg/dL Borderline High: .... 150-199 mg/dL High: ............... 200-499 mg/dL Very High: .......... > 500 mg/dL * Source: National Cholesterol Education Program (NCEP) Procedures Date Code Description Status 04/23/2018 21128 EKG-Tracing And Report Completed 08/08/2017 [id number] Diabetic Foot Exam Completed 06/29/2017 25492 Stress Test Interpre And Report Only Completed 06/29/2017 43599 Stress Test Physician Super Only Completed 06/29/2017 28197 Myocardial Imaging Tomographic Multiple Study AT Rest Completed Or Stress 05/30/2017 11888 EKG-Tracing And Report Completed 01/02/2017 32254 Arthroscopy knee w/menisectomy med & lat including Completed meniscal shavi 11/27/2016 82938 Radiology, Shoulder: Two Views (Sso) Completed 09/04/2016 71115 Radiology, Distal Femur--Knee 1 Or 2 Views Completed 09/04/2016 07886 Radiology, Shoulder: Two Views (Sso) Completed 05/26/2016 23878 Radiology, Shoulder: Two Views (Sso) Completed 02/10/2016 94220 Repair of ruptured musculotendinous (rotator cuff) Completed open 02/10/2016 11439 Claviculectomy;partial open Completed 12/31/2015 33754 Radiology, Shoulder: Two Views (Sso) Completed 12/30/2015 67684 EKG-Tracing And Report Completed 12/07/2015 24416 EKG-Tracing And Report Completed 11/18/2015 36537 Stress Test Interpre And Report Only Completed 11/18/2015 14838 Stress Test Physician Super Only Completed 11/18/2015 99679 Stress Test Physician Super Only Completed 11/18/2015 15438 Myocardial Imaging Tomographic Multiple Study AT Rest Completed Or Stress 11/08/2015 56561 EKG-Tracing And Report Completed 06/30/2015 81208 Colonoscopy With Biopsy Forceps Completed 06/30/2015 [id number] Colonoscopy Completed 06/15/2015 94873 Echocardiogram Complete Completed Encounters Type Date Location Provider Dx Diagnosis Office Visit 10/08/2018 Family Medicine Tam Rowland MD E11.9 Type 2 diabetes 3:[address] mellitus without complications I10 Essential (primary) hypertension E78.2 Mixed hyperlipidemia F52.21 Male erectile disorder Z87.891 Personal history of nicotine dependence Z23 Encounter for immunization Office Visit 09/19/2018 11:30a Family Medicine Tam Rowland, J06.9 Acute upper Bogdan TOLLIVER MD respiratory infection, unspecified Office Visit 07/30/2018 10:45a Family Tam Hurtado, R39.12 Poor urinary Bogdan TOLLIVER MD stream E11.9 Type 2 diabetes mellitus without complications I10 Essential (primary) hypertension E78.2 Mixed hyperlipidemia Office Visit 07/18/2018 10:45a Family Tam Hurtado, J06.9 Acute upper Bogdan TOLLIVER MD respiratory infection, unspecified Office Visit 05/16/2018 1:45p Family Tam Hurtado, H66.92 Otitis media, Bogdan TOLLIVER MD unspecified, left ear Office Visit 04/23/2018 2:00p Cardiology Office Curtis Silva, I25.10 Athscl heart disease of [place] coronary artery w/o ang pctrs I10 Essential (primary) hypertension E78.2 Mixed hyperlipidemia Office Visit 04/18/2018 9:30a Family Tam Hurtado, E11.9 Type 2 diabetes Bogdan TOLLIVER MD mellitus without complications E78.5 Hyperlipidemia, unspecified I10 Essential (primary) hypertension Z23 Encounter for immunization Office Visit 02/28/2018 1:00p Urology Sheila, F52.21 Male erectile Laney Nguyen. 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 mellitus without complications I10 Essential (primary) hypertension E78.5 Hyperlipidemia, unspecified F33.41 Major depressive disorder, recurrent, in partial remission M54.5 Low back pain F52.21 Male erectile disorder Office Visit 08/03/2017 1:00p Family Medicine Sugey Rosales, Z00.01 Encounter for Bogdan TOLLIVER M.D. 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 unspecified Z23 Encounter for immunization Office Visit 01/31/2017 2:00p [facility] Sugey Rosales, E11.9 Type 2 diabetes Bogdan [...] Office Emma Toth shoulder Office Visit 10/31/2016 [facility] Sugey Rosales, I10 Essential 2:00p Bogdan TOLLIVER M.D. (primary) hypertension E11.9 Type 2 diabetes mellitus without complications E78.5 Hyperlipidemia, unspecified K21.9 Gastro-esophageal reflux disease without esophagitis M17.0 Bilateral primary osteoarthritis of knee Office Visit 10/11/2016 2:50p Cardiology Office Curtis Silva, I25.10 Athscl heart disease of [place] coronary artery w/o ang pctrs I10 Essential (primary) hypertension Office Visit 09/13/2016 Ismael Latham M65.4 Radial styloid 2:30p Office Emma Toth tenosynovitis [de Quervain] Office Visit 09/04/2016 Ismael Latham M75.122 Complete 3:15p Office Emma Toth rotatr-cuff tear/ruptr of left shoulder, not trauma M25.562 Pain in left knee M25.512 Pain in left shoulder M17.12 Unilateral primary osteoarthritis, left knee Office Visit 08/31/2016 Family Crawford J45.30 Mild persistent 1:30p Medicine [facility] Leos asthma, RD uncomplicated J09.x2 Flu due to ident novel influenza A virus w oth resp manifest Office Visit 08/02/2016 3:00p [facility] Sugey Rosales, E11.9 Type 2 diabetes Bogdan TOLLIVER M.D. mellitus without complications E78.5 Hyperlipidemia, unspecified J45.30 Mild persistent asthma, uncomplicated K21.9 Gastro-esophageal reflux disease without esophagitis Office Visit 07/25/2016 10:20a Cardiology Office Curtis Silva, I25.10 Hermelinda ambrose MD disease of [place] coronary artery w/o ang pctrs I10 Essential [...] 03/22/2016 8:20a Cardiology Office Curtis Silva, I25.10 Hermelinda ambrose MD disease of [place] coronary artery w/o ang pctrs I10 Essential (primary) hypertension E78.5 Hyperlipidemia, unspecified E66.09 Other obesity due to excess calories Office Visit 01/28/2016 11:00a Family Medicine Sugey Rosales, E11.9 Type 2 diabetes Bogdan TOLLIVER M.D. mellitus without complications I10 Essential (primary) hypertension E78.5 Hyperlipidemia, unspecified J02.9 Acute pharyngitis, unspecified Office Visit 01/20/2016 Family Medicine Demetris J02.9 Acute pharyngitis, 3:00p Bogdan Harris MD unspecified Office Visit 01/17/2016 Orthopaedic Yeison M25.512 Pain in left 2:00p Office Emma Toth shoulder M75.122 Complete rotatr-cuff tear/ruptr of left shoulder, not trauma Office Visit 12/31/2015 9:45a Orthopaedic Office Navneet Latham M25.512 Pain in left M.D. shoulder Office Visit 12/30/2015 9:30a Cardiology Office Curtis Silva MD I25.10 Teeteescjennifer heart disease of [place] coronary artery w/o ang pctrs R07.9 Chest pain, unspecified E78.5 Hyperlipidemia, unspecified I10 Essential (primary) hypertension Office Visit 12/28/2015 Family Amanda Sutton, E11.9 Type 2 diabetes 3:00p Bogdan Davis M.D. mellitus without complications Office Visit 12/07/2015 Cardiology Curtis Silva MD R07.9 Chest pain, 1:30p Office unspecified R06.02 Shortness of breath R94.30 Abnormal result of cardiovascular function study, unsp I10 Essential (primary) hypertension E78.5 Hyperlipidemia, unspecified Office Visit 11/29/2015 11:30a Devyn Rodriguez.Trell Type 2 diabetes Medicine Bogdan Davis M.D. mellitus without RD complications Office Visit 11/08/2015 2:00p Devyn Rodriguez.Trell Type 2 diabetes Medicine Bogdan Davis M.D. mellitus without RD complications I10 Essential (primary) hypertension R07.9 Chest pain, unspecified Office Visit 08/09/2015 2:00p Warren Rodriguez Type 2 diabetes Medicine Bogdan Davis M.D. [...] K20.0 Eosinophilic esophagitis Office Visit 05/12/2015 2:00p Family Amanda Sutton R13.10 Dysphagia, Bogdan Davis M.D. unspecified M54.5 Low back pain [...] 12/08/2014 2:15p Orthopaedic Office Simin 214.8 Lipoma Other MD Vita Specified Sites 724.5 Backache Unspec Office Visit 11/23/2014 4:00p [facility] Lesley, 250.00 Diabetes Ayden SHAREE Davis M.D. 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 Unspec Genlzd Or RD Localzd Other Spec Sites 389.9 Hearing Loss Unspec 305.1 Tobacco Use Disorder 250.00 Diabetes Mellitus W/O Compl Type II Or Unspec Controlled Plan of Treatment Future Appointment(s):05/05/2019 3:00 pm - Patrick Sosa M.D. at [id number] 2:30 pm - Tam Rowland MD at [facility]04/23/2019 1:00 pm - Curtis Silva MD at Cardiology [id number]/31/2018 - Patrick Sosa M.D.F52.21 Male erectile disorderNew Medication:Tadalafil 20 mg - take 1 tab once a day as needed the day of intercourse.Z12.5 Encounter for screening for malignant neoplasm of prostate
[2018-11-23 20:38] VITALS: BP 117/79
[2018-11-23] MEDS ORDERED: Amoxicillin/Clavulanate TAB* 875 MG PO ONE (20:48)
--- NOTE | 2018-11-23 20:51 | UC ---
Bite Injury/Animal HPI - HPI Summary HPI Summary: 58-year-old male comes in with a chief complaint of an infected right hand from a cat bite from yesterday. The cat and it's orders is a known. Also reported that it's all vaccinations are up-to-date. Was yesterday and this morning noticed some swelling and redness and the redness and swelling is spread. The bites on the dorsum of the hand. No fevers or chills. Feels well otherwise. There is some swelling and he feels tightness when he makes a fist or extends his fingers and is able to do both of these motions. No sensation deficit. Last tetanus 2019. - History of Current Complaint Chief Complaint: UCBiteInjury Stated Complaint: RIGHT HAND CAT BITE Time Seen by Provider: 11/23/18 20:42 Pain Intensity: 5 - Allergies/Home Medications Allergies/Adverse Reactions: Allergies Allergy/AdvReac Type Severity Reaction Status Date / Time enviromental Allergy Unknown Unknown Uncoded 11/23/18 20:33 Reaction Details PMH/Surg Hx/FS Hx/Imm Hx Previously Healthy: Yes Endocrine History: Diabetes, Dyslipidemia Cardiovascular History: Hypertension Respiratory History: COPD - Surgical History Surgical History: Yes Surgery Procedure, Year, and Place: 2010 shoulder surgery-right - Family History Known Family History: Positive: Hypertension, Diabetes - Social History Alcohol Use: Occasionally Substance Use Type: None Smoking Status (MU): Former Smoker Type: Cigarettes Length of Time of Smoking/Using Tobacco: off/on since age 15 Have You Smoked in the Last Year: Yes When Did the Patient Quit Smoking/Using Tobacco: 09/2014 Review of Systems All Other Systems Reviewed And Are Negative: Yes Constitutional: Positive: Negative Skin: Positive: Other - SEE HPI Eyes: Positive: Negative ENT: Positive: Negative Respiratory: Positive: Negative Cardiovascular: Positive: Negative Gastrointestinal: Positive: Negative Motor: Positive: Negative Neurovascular: Positive: Negative Musculoskeletal: Positive: Other: - SEE HPI Neurological: Positive: Negative Psychological: Positive: Negative Is Patient Immunocompromised?: No Physical Exam Triage Information Reviewed: Yes Appearance: Well-Appearing, No Pain Distress, Well-Nourished Vital Signs: Initial Vital Signs Temp 97.5 F 11/23/18 20:34 Pulse 76 11/23/18 20:34 Resp 16 11/23/18 20:34 BP 117/79 11/23/18 20:34 Pulse Ox 98 11/23/18 20:34 Vital Signs Reviewed: Yes Eye Exam: Normal Eyes: Positive: Conjunctiva Clear Neck: Positive: Supple Respiratory: Positive: No respiratory distress Musculoskeletal: Positive: Strength Intact, ROM Intact Neurological: Positive: Alert, Muscle Tone Normal Psychological Exam: Normal Psychological: Positive: Age Appropriate Behavior Skin: Positive: Other - On the right hand there is a 5 cm diameter area of swelling and erythema. In the middle of this area there is a puncture wound with a scab over. No drainage no streaking. Patient's able to make a fist and extend his fingers completely. With passive flexion and extension of the fingers patient reports no pain. No sensation deficit normal capillary refill. Wrist is full range of motion. Bite Injury Course/Dx - Course Course Of Treatment: Patient reports he is up-to-date with his tetanus. Started him on Augmentin. Plan is to follow-up with orthopedics hands. I let the patient know that if this gets worse he needs to get reevaluated again in the emergency department most probably for IV antibiotics and potentially for surgery if the tendons are involved. - Differential Dx/Diagnosis Provider Diagnosis: Cat bite of right hand with infection Discharge - Sign-Out/Discharge Documenting (check all that apply): Patient Departure All imaging exams completed and their final reports reviewed: No Studies - Discharge Plan Condition: Stable Disposition: HOME Prescriptions: Amoxicillin/Clavulanate TAB* [Augmentin TAB 875*] 875 mg PO BID #18 tab Patient Education Materials: Animal Bite (ED), Cellulitis (ED) Referrals: Tam Rowland MD [Primary Care Provider] - Phoebe Donato MD [Medical Doctor] - Additional Instructions: FOLLOW UP WITH THE ORTHOPEDIC HAND SPECIALIST, DR DONATO. GO TO THE EMERGENCY DEPARTMENT IF YOUR CONDITION WORSENS; SPREAD OF INFECTION, FEVER, YOU FEEL ILL OR ANY QUESTIONS OR CONCERNS. - Billing Disposition and Condition Condition: STABLE Disposition: Home
== END 2018-11-23 21:03 | disposition home or self-care (01) ==
LOC: UCCORT 20:09
DX: S61.451A Open bite of right hand, initial encounter (principal); L08.9 Local infection of the skin and subcutaneous tissue, unspecified; W55.01XA Bitten by cat, initial encounter; E11.9 Type 2 diabetes mellitus without complications; I10 Essential (primary) hypertension; J44.9 Chronic obstructive pulmonary disease, unspecified; Z87.891 Personal history of nicotine dependence
CPT/HCPCS: 99212; A9270-GY; G0463